=== PATIENT | male | born 1935 | race Caucasian/White ===

== ENCOUNTER 2019-06-04 15:35 | Inpatient (IN) | payer MEDICARE, BC ==
--- NOTE | 2019-06-04 16:15 | ED ---
General Adult HPI - General Chief complaint: Shortness of Breath Stated complaint: Sob-Dr martínez sent him here Time Seen by Provider: 06/04/19 16:00 Source: patient, RN notes reviewed, old records reviewed Mode of arrival: ambulatory Limitations: no limitations - History of Present Illness Initial comments: 83-year-old male presenting for evaluation of cough and dyspnea. Patient was sent in by the lube attendant with increased dyspnea. He states he symptoms have been present for the past several days. He had laboratory testing including a CBC, CMP, d-dimer and BNP performed as well as chest x-ray and echo. His lube attendant Dr. Martínez sent into the emergency department for evaluation of PE as this patient had a significantly elevated d-dimer at 8.0. He has no history DVT or PE. No history of COPD. He had an echo performed as well as an EKG w hich were reported as normal by his lube attendant who I did discuss case with prior to patient arrival. Chest x-ray was performed at this institution, and showed findings suggestive of COPD and emphysema with no focal pneumonia, no pulmonary edema. She denies fever. Denies chest pain. Denies lower extremity pain or swelling. - Related Data Allergies Allergy/AdvReac Type Severity Reaction Status Date / Time No Known Allergies Allergy Verified 06/04/19 15:56 Review of Systems ROS Statement: Those systems with pertinent positive or pertinent negative responses have been documented in the HPI. ROS Other: All systems not noted in ROS Statement are negative. Past Medical History Past Medical History: Diabetes Mellitus History of Any Multi-Drug Resistant Organisms: None Reported Past Surgical History: Appendectomy, Heart Catheterization With Stent Past Psychological History: No Psychological Hx Reported Smoking Status: Never smoker Past Alcohol Use History: None Reported Past Drug Use History: None Reported General Exam Limitations: no limitations General appearance: alert, in no apparent distress Head exam: Present: atraumatic, normocephalic Eye exam: Present: normal appearance, PERRL ENT exam: Present: normal exam Neck exam: Present: normal inspection. Absent: tenderness, meningismus Respiratory exam: Present: normal lung sounds bilaterally. Absent: respiratory distress, wheezes, rales, rhonchi Cardiovascular Exam: Present: regular rate, normal rhythm GI/Abdominal exam: Present: soft. Absent: distended, tenderness, guarding Extremities exam: Present: normal inspection, normal capillary refill. Absent: pedal edema, calf tenderness Neurological exam: Present: alert, oriented X3, CN II-XII intact. Absent: motor sensory deficit Psychiatric exam: Present: normal affect, normal mood Skin exam: Present: warm, dry, intact. Absent: cyanosis, diaphoretic Course Vital Signs 06/04/19 15:50 Temperature 98.3 F Pulse Rate 81 Respiratory 18 Rate Blood Pressure 103/67 O2 Sat by Pulse 98 Oximetry Medical Decision Making - Medical Decision Making 83-year-old male sent from the lube attendant's office for evaluation of pulmonary embolism. Patient had a significantly elevated d-dimer a 8.0. Patient had elevated creatinine at 1.8, perfusion study was obtained and had high probability for pulmonary embolism. Patient was started on high-dose heparin and admitted awaiting repeat lab testing. Case is discussed with the admitting physician Dr. Teran. - Lab Data Result diagrams: 06/04/19 18:30 Lab Results 06/04/19 06/04/19 Range/Units 18:30 18:30 WBC 5.5 (3.8-10.6) k/uL RBC 4.86 (4.30-5.90) m/uL Hgb 15.1 (13.0-17.5) gm/dL Hct 47.0 (39.0-53.0) % MCV 96.7 (80.0-100.0) fL MCH 31.1 (25.0-35.0) pg MCHC 32.2 (31.0-37.0) g/dL RDW 11.9 (11.5-15.5) % Plt Count 185 (150-450) k/uL Neutrophils % 65 % Lymphocytes % 21 % Monocytes % 7 % Eosinophils % 3 % Basophils % 1 % Neutrophils # 3.6 (1.3-7.7) k/uL Lymphocytes # 1.2 (1.0-4.8) k/uL Monocytes # 0.4 (0-1.0) k/uL Eosinophils # 0.2 (0-0.7) k/uL Basophils # 0.0 (0-0.2) k/uL PT 10.2 (9.0-12.0) sec INR 1.0 (<1.2) APTT 22.7 (22.0-30.0) sec Critical Care Time Critical Care Time: Yes Total Critical Care Time: 35 Disposition Clinical Impression: Pulmonary embolism Disposition: ADMITTED IP TO THIS HOSP Condition: Stable Is patient prescribed a controlled substance at d/c from ED?: No Referrals: Hoa Lorenz MD [Primary Care Provider] - 1-2 days Decision to Admit Reason: Admit from EC Decision Date: 06/04/19 Decision Time: 18:15
[2019-06-04] MEDS ORDERED: HEPARIN SODIUM,PORCINE 10,000 UNIT/ML 1 ML VIAL IV ONE (18:16)
[2019-06-04] MEDS ORDERED: HEPARIN SODIUM,PORCINE 5,000 UNIT/ML 1 ML VIAL IV PRN (18:16)
--- NOTE | 2019-06-04 18:18 | NM ---
EXAMINATION TYPE: NM pul vent and perfuse DATE OF EXAM: 06/04/2019 COMPARISON: Chest x-ray dated 06/04/2019 HISTORY: Shortness of breath TECHNIQUE: Utilizing inhalation of 30.4 mCi Tc 99m DTPA aerosol and intravenous injection of 5.2 mCi of Tc 99m MAA, ventilation and perfusion images are acquired post injection in multiple projections. FINDINGS: Decreased radiopharmaceutical uptake is present on ventilation imaging in the upper lobes possibly re lated to underlying emphysema. There are ventilation/perfusion mismatches involving the right upper l obe, right lower lobe, left lower lobe. IMPRESSION: High probability for pulmonary embolism. Report relayed to the physician Dr. Trevizo at time of interpretation
[2019-06-04] MEDS ORDERED: MORPHINE SULFATE 4 MG/ML SYRINGE IV PRN (18:28)
[2019-06-04] MEDS ORDERED: NALOXONE 0.4 MG/ML 1 ML VIAL IV PRN (18:28)
[2019-06-04 18:52] LABS: Basophils % (A) 1 %; Eosinophils # (A) 0.2 k/uL (0-0.7); Eosinophils % (A) 3 %; HGB 15.1 gm/dL (13.0-17.5); Lymphocytes # (A) 1.2 k/uL (1.0-4.8); Lymphocytes % (A) 21 %; MCH 31.1 pg (25.0-35.0); MCHC 32.2 g/dL (31.0-37.0); MCV 96.7 fL (80.0-100.0); Mean Platelet Volume 7.7; Monocytes # (A) 0.4 k/uL (0-1.0); Monocytes % (A) 7 %; Neutrophils # (A) 3.6 k/uL (1.3-7.7); Neutrophils % (A) 65 %; Platelet Count 185 k/uL (150-450); RBC 4.86 m/uL (4.30-5.90); RDW 11.9 % (11.5-15.5); WBC 5.5 k/uL (3.8-10.6)
[2019-06-04 19:07] LABS: Partial Thromboplastin Time 22.7 sec (22.0-30.0); Prothrombin Time 10.2 sec (9.0-12.0)
[2019-06-04] MEDS: HEPARIN SOD,PORK IN 0.45% NACL 25,000 UNIT in 0.45% NACL 1 250ML.BAG IV SCH (19:41)
--- NOTE | 2019-06-04 21:20 | P.HPIM ---
History of Present Illness H&P Date: 06/04/19 The patient is an 83-year-old male with a PMH of diabetes mellitus who was sent in from his readers' advisory service librarian's office for evaluation of shortness of breath and persistent cough. The patient reports that for the last 3 days, he has had gradually worsening dyspnea which has severely limited his activity. He reports that he gets short of breath with climbing 2-3 stairs and even just walking a few steps. He notes that he has previously been in excellent health and has never had similar symptoms in the past. He denied chest pain, diaphoresis, nausea, vomiting, or leg pain. Denied fever, chills, or cough. He was evaluated by Dr. Garcia in the office earlier today was subsequently sent him to the em ergency room. As per the ED augmentation, the patient had undergone an echocardiogram and an EKG in the readers' advisory service librarian's office which were unremarkable as per Dr. Garcia's conversation with the ED physician. the patient's laboratory evaluation revealed a WBC count of 5.5, hemoglobin 15.1, platelets 185, INR 1.0, PTT 22.7. A VQ scan revealed high probability of PE. At time of the interview, the patient reports that his breathing has somewhat improved and he had no dyspnea with walking to the restroom. The patient was started on a heparin infusion and is being admitted for further monitoring. Review of Systems Pertinent positives and negatives as discussed in HPI, a complete review of systems was performed and all other systems are negative. Past Medical History Past Medical History: Diabetes Mellitus History of Any Multi-Drug Resistant Organisms: None Reported Past Surgical History: Appendectomy, Heart Catheterization With Stent Past Psychological History: No Psychological Hx Reported Smoking Status: Never smoker Past Alcohol Use History: None Reported Past Drug Use History: None Reported Medications and Allergies Allergies Allergy/AdvReac Type Severity Reaction Status Date / Time No Known Allergies Allergy Verified 06/04/19 15:56 Physical Exam Vitals: Vital Signs Temp Pulse Resp BP Pulse Ox 06/04/19 15:50 98.3 F 81 18 103/67 98 Intake and Output 06/04/19 06/04/19 06/04/19 06:59 14:59 22:59 Other: Weight 81.647 kg General: non toxic, no distress, appears at stated age, overweight Derm: no unusual rashes/lesions no unusual ecchymoses, warm, dry Head: atraumatic, normocephalic, symmetric Eyes: EOMI, no lid lag, anicteric sclera, pupils equal round reactive to light ENT: Nose and ears atraumatic, no thrush, no pharyngeal erythema Neck: No thyromegaly, no cervical lymphadenopathy, trachea midline, supple Mouth: no lip lesion, mucus membranes moist Cardiovascular: S1S2 reg, no murmur, positive posterior tibial pulse bilateral, no edema, capillary refill less than 2 seconds Lungs: CTA bilateral, no rhonchi, no rales , no accessory muscle use Abdominal: soft, nontender to palpation, no guarding, no appreciable organomegaly, normal bowel sounds Ext: no gross muscle atrophy, muscle strength 5 out of 5 in all 4 extremities grossly, no contractures, no calf tenderness Neuro: CN II-XI grossly intact, light touch intact all 4 extremities, finger to nose within normal limits, Psych: Alert, oriented, appropriate affect Results CBC & Chem 7: 06/04/19 18:30 Assessment and Plan Plan: Dyspnea with likely PE -Started on Heparin infusion -Unable to find echocardiogram in chart -Will need to obtain records in am -Dr Garcia consulted -Cardiac monitoring -Monitor CBC -Obtain repeat EKG Chronic conditions: Type 2 DM -ALFONSO with FS DVT prophylaxis -Heparin infusion The patient is admitted with an anticipated less than 2 midnight stay for evaluation of dyspnea CODE STATUS: No Code Discussed with: Patient Anticipated discharge date: 1-[address]: Home A total of 35 minutes was spent on the care of this complex patient more than 50% of the time was spent in counseling and care coordination.
[2019-06-04] MEDS: SODIUM CHLORIDE 0.9% 1,000 ML IV SCH (22:51)
[2019-06-04 23:48] LABS: Calcium 8.9 mg/dL (8.4-10.2); Potassium 4.3 mmol/L (3.5-5.1)
[2019-06-05 06:29] LABS: Glucose,Whole Blood 132 mg/dL (75-99)
[2019-06-05] MEDS: INSULIN ASPART (NovoLOG) 100 UNIT/ML VIAL SQ SCH ×3 (06:39→17:44)
[2019-06-05 07:22] LABS: Basophils % (A) 0 %; Eosinophils # (A) 0.2 k/uL (0-0.7); Eosinophils % (A) 4 %; HCT 46.7 % (39.0-53.0); HGB 15.3 gm/dL (13.0-17.5); Lymphocytes # (A) 1.3 k/uL (1.0-4.8); Lymphocytes % (A) 21 %; MCH 31.8 pg (25.0-35.0); MCHC 32.8 g/dL (31.0-37.0); Mean Platelet Volume 7.6; Monocytes # (A) 0.4 k/uL (0-1.0); Monocytes % (A) 6 %; Neutrophils # (A) 4.3 k/uL (1.3-7.7); Neutrophils % (A) 68 %; Platelet Count 200 k/uL (150-450); RBC 4.82 m/uL (4.30-5.90); WBC 6.4 k/uL (3.8-10.6)
--- NOTE | 2019-06-05 10:48 | P.PN ---
Subjective Progress Note Date: 06/05/19 This is a pleasant 83-year-old gentleman who follows with Dr. Garcia in the office. He has a known history of coronary artery disease with prior stenting of the right coronary artery, history of paroxysmal supraventricular tachycardia with prior ablation, hypertension, hyperlipidemia, diabetes, went to see Dr. Garcia in the office yesterday because of symptoms of progressively worsening shortness of breath. Patient denies any recent long trips, he denies any injuries to himself recently. No recent surgeries. VQ scan was performed on admission here which showed high probability for pulmonary embolism. Blood pressure this morning 88/70 with a heart rate in the 80s, 99% on 2 L of oxygen. Temperature 98.5. White blood cell count 6.4, hemoglobin 15.3, platelet count 200. Sodium 138, potassium 4.3, BUN 31, creatinine 1.8. Chest x-ray did not reveal any acute cardiopulmonary process. Throughout the night last night, patient went into atrial fibrillation with a fairly rapid ventricular response. He is at present on high-intensity heparin drip. Patient was on metoprolol 50 mg one tablet by mouth twice a day at home which we will resume. Objective - Vital Signs Vital signs: Vital Signs Temp 98.5 F 06/05/19 08:45 Pulse 86 06/05/19 08:45 Resp 18 06/05/19 08:45 BP 87/72 06/05/19 08:45 Pulse Ox 99 06/05/19 08:45 Intake & Output 06/04/19 06/05/19 06/05/19 18:59 06:59 18:59 Intake Total 98.708 Output Total 400 Balance -301.292 Weight 81.647 kg 81.647 kg Intake: Intake, IV Titration 98.708 Amount Heparin Sod,Pork in 0.45% 98.708 NaCl 25,000 unit In 0.45 % NaCl 1 250ml.bag @ 18 UNITS/KG/HR 14.696 mls/hr IV .Q17H1M [facility] Rx#: [id number] Output: Urine 400 - Exam PHYSICAL EXAMINATION: GENERAL: 83-year-old gentleman in no acute distress at the time of my examination HEENT: Head is atraumatic, normocephalic. Pupils equal, round. Sclera anicter ic. Conjunctiva are clear. Mucous membranes of the mouth are moist. Neck is supple. There is no elevated jugular venous pressure. No carotid bruit is heard. HEART EXAMINATION: Heart S1 and S2 irregularly irregular CHEST EXAMINATION: Lungs are clear to auscultation and precussion. No chest wall tenderness is noted on palpation or with deep breathing. ABDOMEN: Soft, nontender. Bowel sounds are heard. No organomegaly noted. EXTREMITIES: 2+ peripheral pulses with no evidence of peripheral edema and no calf tenderness noted. NEUROLOGIC patient is awake, alert and oriented 3 . . - Labs CBC & Chem 7: 06/05/19 06:44 06/04/19 22:56 Labs: Abnormal Lab Results - Last 24 Hours (Table) 06/04/19 06/05/19 06/05/19 Range/Units 22:56 01:06 06:27 APTT 143.7 H* (22.0-30.0) sec Chloride 109 H (98-107) mmol/L Carbon Dioxide 21 L (22-30) mmol/L BUN 31 H (9-20) mg/dL Creatinine 1.81 H (0.66-1.25) mg/dL Glucose 153 H (74-99) mg/dL POC Glucose (mg/dL) 132 H (75-99) mg/dL Assessment and Plan Plan: Assessment and plan #1 symptoms of progressively worsening shortness of breath with evidence of pulmonary embolism on VQ scan, unprovoked #2 new onset atrial fibrillation, paroxysmal #3 known history of coronary artery disease with prior RCA stenting in 2005 #4 hypertension #5 hyperlipidemia #6 diabetes #7 history of paroxysmal supraventricular tachycardia with prior ablation #8 acute on chronic renal insufficiency Plan We will check to see if the patient had an echo performed in the office yesterday prior to admission here, if he did we will not repeat one here. If the patient did not have an echo we will repeat an echo at this time. We will also obtain a TSH level. Resume the patient's beta bárbara 50 mg one tablet by mouth twice a day. Patient is currently on high-intensity heparin for the pulmonary embolism. He'll also need a further evaluation by hematology to determine the cause of this pulmonary embolism. Further recommendations to follow. DNP note has been reviewed, I agree with a documented findings and plan of care. Patient was seen and examined.
[2019-06-05] MEDS: METOPROLOL TARTRATE 50 MG TAB PO SCH ×2 (11:51→20:16)
[2019-06-05] MEDS: HEPARIN SOD,PORK IN 0.45% NACL 25,000 UNIT in 0.45% NACL 1 250ML.BAG IV SCH (12:10)
[2019-06-05] MEDS: SODIUM CHLORIDE 0.9% 1,000 ML IV SCH (12:44)
[2019-06-05 13:45] LABS: Hemoglobin A1C 8.3 % (4.0-6.0)
--- NOTE | 2019-06-05 15:41 | P.PN ---
Subjective Progress Note Date: 06/05/19 Principal diagnosis: follow up for acute PE , and new onset paroxysmal Afib patient was seen and examined , patient doing well on room air, denies any trouble breathing, palpitations, or chest pain Objective - Vital Signs Vital signs: Vital Signs Temp 97.8 F 06/05/19 12:00 Pulse 86 06/05/19 12:00 Resp 20 06/05/19 12:00 BP 121/71 06/05/19 12:00 Pulse Ox 97 06/05/19 12:00 Intake & Output 06/04/19 06/05/19 06/05/19 18:59 06:59 18:59 Intake Total 98.708 100.63 Output Total 400 Balance -301.292 100.63 Weight 81.647 kg 81.647 kg 81.3 kg Intake: Intake, IV Titration 98.708 100.63 Amount Heparin Sod,Pork in 0.45% 98.708 100.63 NaCl 25,000 unit In 0.45 % NaCl 1 250ml.bag @ 18 UNITS/KG/HR 14.696 mls/hr IV .Q17H1M REPLACED [facility] Rx#: [id number] Output: Urine 400 Other: # Voids 0 # Bowel Movements 0 - Exam Constitutional: vital signs stable, Not in acute distress, pleasant, conversant Lungs: Clear to auscultation bilaterally, clear to percussion, normal respiratory effort Cardiovascular: Regular rate and rhythm, no murmurs, no gallops, no rubs, no peripheral edema Gastrointestinal: Soft, no tenderness to palpation, bowel sounds positive Extremities: No digital cyanosis , peripheral pulses palpable and equal , no calf muscle tenderness Psych: Alert, oriented to place, person and time, appropriate affect, intact judgment - Labs CBC & Chem 7: 06/05/19 06:44 06/04/19 22:56 Labs: Abnormal Lab Results - Last 24 Hours (Table) 06/04/19 06/05/19 06/05/19 Range/Units 22:56 01:06 06:27 APTT 143.7 H* (22.0-30.0) sec Chloride 109 H (98-107) mmol/L Carbon Dioxide 21 L (22-30) mmol/L BUN 31 H (9-20) mg/dL Creatinine 1.81 H (0.66-1.25) mg/dL Glucose 153 H (74-99) mg/dL POC Glucose (mg/dL) 132 H (75-99) mg/dL Hemoglobin A1c (4.0-6.0) % 06/05/19 06/05/19 Range/Units 06:49 10:57 APTT 92.6 H (22.0-30.0) sec Chloride (98-107) mmol/L Carbon Dioxide (22-30) mmol/L BUN (9-20) mg/dL Creatinine (0.66-1.25) mg/dL Glucose (74-99) mg/dL POC Glucose (mg/dL) (75-99) mg/dL Hemoglobin A1c 8.3 H (4.0-6.0) % Assessment and Plan Assessment: 83-year-old male with poorly controlled diabetes mellitus, hypertension, history of CAD. Comes in due to referral from college or university business manager office when he showed up for acute shortness of breath and palpitations. In the ED he had some testing done includes VQ scan revealed high probability PE for which she is admitted for treatment of acute PE and new onset paroxysmal A. fib. Patient was started on heparin drip and currently undergoing full workup for underlying causes of PE. It seems like his PE is unprovoked. Plan: Acute unprovoked PE Cardiovascularly compensated at this time Currently on room air Continue with heparin drip We'll transition into one of the oral anticoagulation upon discharge. Diabetes mellitus uncontrolled A1c is 8.3 Insulin sliding scale while inpatient New onset paroxysmal A. fib, chads Basque score more than 2 will require anticoagulation for stroke prophylaxis will await for further recommendations from cardiology Follow-up echocardiogram to rule out any structural cardiac disease and valvular disorder Chronic conditions Hypertension, controlled Hyperlipidemia History of CAD Continue home meds We'll follow up on echocardiogram of the heart Venous duplex ultrasound of the lower extremities Contact Yane patient daughter at [phone] upon discharge Anticipated discharge tomorrow 06/06/19, to home for acute PE , Switch the patient to Eliquis 10 mg twice a day for 7 days then transitioned into 5 mg twice a day to continue a course of 6 months, follow-up with hematology prior to stopping Eliquis
--- NOTE | 2019-06-05 16:19 | US ---
EXAMINATION TYPE: US venous doppler duplex LE DATE OF EXAM: 06/05/2019 1:38 PM COMPARISON: NONE CLINICAL HISTORY: Bilateral PE. Low blood pressure SIDE PERFORMED: Bilateral TECHNIQUE: The lower extremity deep venous system is examined utilizing real time linear array sonog candice with graded compression, doppler sonography and color-flow sonography. VESSELS IMAGED: External Iliac Vein (EIV) Common Femoral Vein Deep Femoral Vein Greater Saphenous Vein * Femoral Vein Popliteal Vein Small Saphenous Vein * Proximal Calf Veins (* superficial vessels) Grayscale, color doppler, spectral doppler imaging performed of the deep veins of the lower extremiti es. There is normal flow, compressibility, vascular waveforms. Right Leg: Negative for DVT Left Leg: Negative for DVT IMPRESSION: No sonographic evidence of deep venous thrombosis in the visualized portions of the bila teral lower extremities.
[2019-06-05 17:11] LABS: Glucose,Whole Blood 185 mg/dL (75-99)
--- NOTE | 2019-06-05 17:12 | P.CONS ---
History of Present Illness - Reason for Consult Consult date: 06/05/19 Bilateral PE Requesting physician: Josephine Hall - Chief Complaint cough and SOB - History of Present Illness Mr. Beavers is a very pleasant 83 year old male with rather benign PHM other then Tx for HTN and DM (oral meds only). Pt sent to hospital at his Sporting Goods Salesperson request as pt had c/o SOB and cough x 3 days, persistent, D-dimer was elevated, VQ showed mismatch ventilation/perfusion in multiple lobes, pt SOB and cough are stable, he denied recent illnesses, chest pain, recent trips, prolonged immobilization, hormonal treatments, injury, no personal or family history of blood clots, he denies any diagnosis of cancer. Review of Systems 14 point ROS is negative except as stated in HPI Past Medical History Past Medical History: Diabetes Mellitus History of Any Multi-Drug Resistant Organisms: None Reported Past Surgical History: Appendectomy Past Anesthesia/Blood Transfusion Reactions: No Reported Reaction Past Psychological History: No Psychological Hx Reported Smoking Status: Never smoker Past Alcohol Use History: None Reported Past Drug Use History: None Reported - Past Family History Father History Unknown: Yes Medications and Allergies Home Medications Medication Instructions Recorded Confirmed Type glipiZIDE [Glucotrol] 5 mg PO AC-BID 06/04/19 06/05/19 History Apixaban [Eliquis Starter Pack 5 mg PO DIRECTED 30 Days #1 pack 06/05/19 Rx (for VTE)] Aspirin EC [Ecotrin Low Dose] 81 mg PO DAILY 06/05/19 06/05/19 History Metoprolol Tartrate [Lopressor] 50 mg PO BID 06/05/19 06/05/19 History Simvastatin [Zocor] 20 mg PO HS 06/05/19 06/05/19 History amLODIPine [Norvasc] 5 mg PO DAILY 06/05/19 06/05/19 History metFORMIN HCL [Glucophage] 500 mg PO BID 06/05/19 06/05/19 History Allergies Allergy/AdvReac Type Severity Reaction Status Date / Time No Known Allergies Allergy Verified 06/04/19 21:38 Physical Exam Vitals: Vital Signs Temp Pulse Pulse Resp BP BP Pulse Ox 06/05/19 08:45 98.5 F 86 16 87/72 99 06/05/19 04:00 98.4 F 98 18 103/72 96 06/05/19 00:00 98.1 F 93 18 108/80 96 06/04/19 20:00 98.5 F 76 18 139/86 98 06/04/19 15:50 98.3 F 81 18 103/67 98 Intake and Output 06/04/19 06/05/19 06/05/19 22:59 06:59 14:59 Intake Total 98.708 100.63 Output Total 400 Balance -301.292 100.63 Intake: Intake, IV Titration 98.708 100.63 Amount Heparin Sod,Pork in 0.45% 98.708 100.63 NaCl 25,000 unit In 0.45 % NaCl 1 250ml.bag @ 18 UNITS/KG/HR 14.696 mls/hr IV .Q17H1M [facility] Rx#: [id number] Output: Urine 400 Other: # Voids 0 # Bowel Movements 0 Weight 81.647 kg 81.3 kg - Constitutional General appearance: average body habitus, cooperative, no acute distress - EENT Eyes: anicteric sclerae, EOMI ENT: hearing grossly normal, normal oropharynx - Neck Neck: no lymphadenopathy - Respiratory Respiratory: bilateral: CTA - Cardiovascular Rhythm: regular Heart sounds: normal: S1, S2 Abnormal Heart Sounds: no systolic murmur, no diastolic murmur, no rub, no S3 Gallop, no S4 Gallop, no click, no other leg Peripheral Edema: bilateral: Trace - Gastrointestinal General gastrointestinal: no absent bowel sounds, no decreased bowel sounds, no distended, no hepatomegaly, no hyperactive bowel sounds, normal bowel sounds, no organomegaly, no rigid, no scaphoid, soft, no splenomegaly, no tenderness, no umbilical hernia, no ventral hernia - Integumentary Integumentary: normal - Neurologic Neurologic: CNII-XII intact - Musculoskeletal Musculoskeletal: strength equal bilaterally - Psychiatric Psychiatric: A&O x's 3, appropriate affect, intact judgment & insight Results CBC & Chem 7: 06/05/19 06:44 06/04/19 22:56 Labs: Abnormal Lab Results - Last 24 Hours (Table) 06/04/19 06/05/19 06/05/19 Range/Units 22:56 01:06 06:27 APTT 143.7 H* (22.0-30.0) sec Chloride 109 H (98-107) mmol/L Carbon Dioxide 21 L (22-30) mmol/L BUN 31 H (9-20) mg/dL Creatinine 1.81 H (0.66-1.25) mg/dL Glucose 153 H (74-99) mg/dL POC Glucose (mg/dL) 132 H (75-99) mg/dL Hemoglobin A1c (4.0-6.0) % 06/05/19 06/05/19 Range/Units 06:49 10:57 APTT 92.6 H (22.0-30.0) sec Chloride (98-107) mmol/L Carbon Dioxide (22-30) mmol/L BUN (9-20) mg/dL Creatinine (0.66-1.25) mg/dL Glucose (74-99) mg/dL POC Glucose (mg/dL) (75-99) mg/dL Hemoglobin A1c 8.3 H (4.0-6.0) % Comments: VQ scan report reviewed Assessment and Plan (1) Pulmonary embolism Narrative/Plan: RUL, RLL and LLL PE, unprovoked. Recommendation is for lifelong anticoagulation, if tolerated well. CTA 6mo-1 year for re-evaluation. Pt has children, hypercoaguable work up will be done outpatient Doppler of BLE for baseline prior to starting anticoagulation for PE Jeanette Escobedo sent for copay verification, CM following up. All of the above was discussed with the pt. Symptomatic PE, anticipate heparin drip until at least tomorrow when pt symptoms re-evaluated Current Visit: Yes Status: Acute Priority: High Code(s): I26.99 - OTHER PULMONARY EMBOLISM WITHOUT ACUTE COR PULMONALE SNOMED Code(s): 65525310
[2019-06-05] MEDS: APIXABAN 5 MG TAB PO SCH (17:44)
[2019-06-05 20:15] VITALS: RESP 16
[2019-06-05 20:53] LABS: Glucose,Whole Blood 101 mg/dL (75-99)
[2019-06-06 06:06] LABS: Glucose,Whole Blood 120 mg/dL (75-99)
[2019-06-06] MEDS: INSULIN ASPART (NovoLOG) 100 UNIT/ML VIAL SQ SCH ×2 (06:11→12:29)
[2019-06-06 06:44] LABS: Basophils % (A) 0 %; Eosinophils # (A) 0.2 k/uL (0-0.7); Eosinophils % (A) 4 %; HCT 43.8 % (39.0-53.0); HGB 14.3 gm/dL (13.0-17.5); Lymphocytes # (A) 1.1 k/uL (1.0-4.8); Lymphocytes % (A) 20 %; MCH 31.5 pg (25.0-35.0); MCHC 32.6 g/dL (31.0-37.0); MCV 96.8 fL (80.0-100.0); Mean Platelet Volume 7.4; Monocytes # (A) 0.3 k/uL (0-1.0); Monocytes % (A) 6 %; Neutrophils # (A) 3.8 k/uL (1.3-7.7); Neutrophils % (A) 68 %; Platelet Count 188 k/uL (150-450); RBC 4.53 m/uL (4.30-5.90); WBC 5.6 k/uL (3.8-10.6)
[2019-06-06 06:53] LABS: Calcium 8.9 mg/dL (8.4-10.2); Potassium 5.4 mmol/L (3.5-5.1)
[2019-06-06] MEDS ORDERED: ASPIRIN 81 MG PO SCH (09:00)
[2019-06-06] MEDS: APIXABAN 5 MG TAB PO SCH (09:03)
[2019-06-06] MEDS: METOPROLOL TARTRATE 50 MG TAB PO SCH (09:03)
[2019-06-06 09:05] VITALS: TEMP 98.3
--- NOTE | 2019-06-06 11:08 | P.DS ---
Providers Date of admission: 06/04/19 19:15 Attending physician: Jeronimo Edgar MD Consults: 06/04/19 18:28 Consult Physician Routine Consulting Provider: Ramon Garcia Consult Reason/Comments: Pe Do you want consulting provider notified?: Yes 06/04/19 21:27 Consult Physician Routine Consulting Provider: Robin Howard Consult Reason/Comments: Unprovoked PE Do you want consulting provider notified?: Yes Primary care physician: Hoa Lorenz Hospital Course: Final diagnoses at discharge Acute unprovoked pulmonary embolism Paroxysmal A. fib CKD III diabetes mellitus with A1C 8.3% hospital course 83-year-old male with poorly controlled diabetes mellitus, hypertension, history of CAD. 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 In the ED he had some testing done includes VQ scan revealed high probability PE for which she is admitted for treatment of acute PE and new onset paroxysmal A. fib. Patient was started on heparin drip and currently undergoing full workup for underlying causes of PE. It seems like his PE is unprovoked. venous duplex ultrasound of the lower extremity showed no acute DVT. Patient seen and examined on day of discharge she participated with physical therapy walked around independently. Denies any chest pain or trouble breathing currently on room air. Constitutional: vital signs stable, Not in acute distress, pleasant, conversant Lungs: Clear to auscultation bilaterally, clear to percussion, normal respiratory effort Cardiovascular: Regular rate and rhythm, no murmurs, no gallops, no rubs, no peripheral edema Gastrointestinal: Soft, no tenderness to palpation, bowel sounds positive Extremities: No digital cyanosis , peripheral pulses palpable and equal , no calf muscle tenderness Psych: Alert, oriented to place, person and time, appropriate affect, intact judgment Follow-up with cardiology and hematology upon discharge Follow-up with PCP Condition to continue Eliquis lifelong patient will be discharged today after cardiology sees and clears the patient i called patient daughter Yane and updated her on the patient current diagnosis and plan of care More than 35 minutes were spent discharging this patient, and more than 50% of the time was spent in counseling the patient and family and in coordinating care. Procedures: venous duplex ultrasound of the lower extremities VQ scan Patient Condition at Discharge: Stable Plan - Discharge Summary New Discharge Prescriptions: New Apixaban [Eliquis Starter Pack (for VTE)] 5 mg PO DIRECTED 30 Days #1 pack Continue glipiZIDE [Glucotrol] 5 mg PO AC-BID metFORMIN HCL [Glucophage] 500 mg PO BID Simvastatin [Zocor] 20 mg PO HS Metoprolol Tartrate [Lopressor] 50 mg PO BID Aspirin EC [Ecotrin Low Dose] 81 mg PO DAILY amLODIPine [Norvasc] 5 mg PO DAILY Discharge Medication List glipiZIDE [Glucotrol] 5 mg PO AC-BID 06/04/19 [History] Apixaban [Eliquis Starter Pack (for VTE)] 5 mg PO DIRECTED 30 Days #1 pack 06/05/19 [Rx] Aspirin EC [Ecotrin Low Dose] 81 mg PO DAILY 06/05/19 [History] Metoprolol Tartrate [Lopressor] 50 mg PO BID 06/05/19 [History] Simvastatin [Zocor] 20 mg PO HS 06/05/19 [History] amLODIPine [Norvasc] 5 mg PO DAILY 06/05/19 [History] metFORMIN HCL [Glucophage] 500 mg PO BID 06/05/19 [History] Follow up Appointment(s)/Referral(s): Robni Howard MD [STAFF PHYSICIAN] - 1 Week Hoa Lorenz MD [Primary Care Provider] - 06/08/19 11:00 am (Tuesday) Ramon Garcia MD [STAFF PHYSICIAN] - 06/13/19 3:00 pm (Tuesday) Patient Instructions/Handouts: Pulmonary Embolism (DC), Safe Use of Anticoagulants (DC) Discharge Disposition: HOME SELF-CARE
[2019-06-06 11:32] LABS: Glucose,Whole Blood 223 mg/dL (75-99)
--- NOTE | 2019-06-06 12:04 | P.PN ---
Subjective Progress Note Date: 06/06/19 Principal diagnosis: unprovoked PE In f/u today pt is doing well, cough is less, mild GILL, denies chest pain and bleeding. Objective - Vital Signs Vital signs: Vital Signs Temp 98.3 F 06/06/19 08:00 Pulse 71 06/06/19 08:00 Resp 16 06/06/19 11:55 BP 117/61 06/06/19 08:00 Pulse Ox 92 L 06/06/19 08:00 Intake & Output 06/05/19 06/06/19 06/06/19 18:59 06:59 18:59 Intake Total 400.63 Output Total 480 280 Balance 400.63 -480 -280 Weight 81.3 kg 81.2 kg Intake: Intake, IV Titration 100.63 Amount Heparin Sod,Pork in 0.45% 100.63 NaCl 25,000 unit In 0.45 % NaCl 1 250ml.bag @ 18 UNITS/KG/HR 14.696 mls/hr IV .Q17H1M [facility] Rx#: [id number] Oral 300 Output: Urine 480 280 Other: # Voids 1 1 # Bowel Movements 0 0 - Constitutional General appearance: Present: average body habitus, cooperative, no acute distress - EENT Eyes: Present: anicteric sclerae, EOMI ENT: Present: hearing grossly normal - Respiratory Respiratory: bilateral: CTA - Cardiovascular Details: radial pulse regular, 2+ - Integumentary Integumentary: Present: normal - Neurologic Neurologic: Present: CNII-XII intact - Musculoskeletal Musculoskeletal: Present: strength equal bilaterally - Psychiatric Psychiatric: Present: A&O x's 3, appropriate affect, intact judgment & insight - Labs CBC & Chem 7: 06/06/19 05:52 06/06/19 05:52 Labs: Abnormal Lab Results - Last 24 Hours (Table) 06/05/19 06/05/19 06/05/19 Range/Units 06:49 17:00 20:51 Potassium (3.5-5.1) mmol/L Chloride (98-107) mmol/L BUN (9-20) mg/dL Creatinine (0.66-1.25) mg/dL Glucose (74-99) mg/dL POC Glucose (mg/dL) 185 H 101 H (75-99) mg/dL Hemoglobin A1c 8.3 H (4.0-6.0) % 06/06/19 06/06/19 06/06/19 Range/Units 05:52 06:04 11:24 Potassium 5.4 H (3.5-5.1) mmol/L Chloride 108 H (98-107) mmol/L BUN 31 H (9-20) mg/dL Creatinine 1.79 H (0.66-1.25) mg/dL Glucose 106 H (74-99) mg/dL POC Glucose (mg/dL) 120 H 223 H (75-99) mg/dL Hemoglobin A1c (4.0-6.0) % - Imaging and Cardiology Venous US: report reviewed Assessment and Plan (1) Pulmonary embolism Narrative/Plan: RUL, RLL and LLL PE, unprovoked. Recommendation is for lifelong anticoagulation, if tolerated well. CTA 6mo-1 year for re-evaluation. Pt has children, hypercoaguable work up will be done outpatient-pt will be contacted with appt Doppler of BLE for baseline was negative Eliqus Erx sent for copay verification, CM following up. We will follow with pt to ensure he has anticoagulant Reviewed bleeding precautions, when to seek emergent medical care All of the above was discussed with the pt. Current Visit: Yes Status: Acute Priority: High Code(s): I26.99 - OTHER PULMONARY EMBOLISM WITHOUT ACUTE COR PULMONALE SNOMED Code(s): 72272766
[2019-06-06 12:31] VITALS: BP 112/58; PULSE 51
--- NOTE | 2019-06-06 13:35 | P.PN ---
Subjective Progress Note Date: 06/06/19 This is a pleasant 83-year-old gentleman who follows with Dr. Garcia in the office. He has a known history of coronary artery disease with prior stenting of the right coronary artery, history of paroxysmal supraventricular tachycardia with prior ablation, hypertension, hyperlipidemia, diabetes, went to see Dr. Garcia in the office yesterday because of symptoms of progressively worsening shortness of breath. Patient denies any recent long trips, he denies any injuries to himself recently. No recent surgeries. VQ scan was performed on admission here which showed high probability for pulmonary embolism. Blood pressure this morning 88/70 with a heart rate in the 80s, 99% on 2 L of oxygen. Temperature 98.5. White blood cell count 6.4, hemoglobin 15.3, platelet count 200. Sodium 138, potassium 4.3, BUN 31, creatinine 1.8. Chest x-ray did not reveal any acute cardiopulmonary process. Throughout the night last night, patient went into atrial fibrillation with a fairly rapid ventricular response. He is at present on high-intensity heparin drip. Patient was on metoprolol 50 mg one tablet by mouth twice a day at home which we will resume. 06/06/2019 Patient was seen and examined this morning, doing well, breathing is stable. Denies any further episodes of shortness of breath. He's been ambulating without any difficulty. He is on anticoagulation per PE protocol. Venous d uplex study was negative for DVT. Patient is being discharged home today, he will follow-up with hematology for a full evaluation post discharge. We will also make him a follow-up appointment in the office to see Dr. Kate. Objective - Vital Signs Vital signs: Vital Signs Temp 98.3 F 06/06/19 08:00 Pulse 51 L 06/06/19 12:00 Resp 16 06/06/19 12:00 BP 112/58 06/06/19 12:00 Pulse Ox 96 06/06/19 12:00 Intake & Output 06/05/19 06/06/19 06/06/19 18:59 06:59 18:59 Intake Total 400.63 300 Output Total 480 280 Balance 400.63 -480 20 Weight 81.3 kg 81.2 kg Intake: Intake, IV Titration 100.63 300 Amount Heparin Sod,Pork in 0.45% 100.63 NaCl 25,000 unit In 0.45 % NaCl 1 250ml.bag @ 18 UNITS/KG/HR 14.696 mls/hr IV .Q17H1M [facility] Rx#: [id number] Sodium Chloride 0.9% 1, 300 000 ml @ 50 mls/hr IV . Q20H [facility] Rx#:[id number] Oral 300 Output: Urine 480 280 Other: # Voids 1 1 # Bowel Movements 0 0 - Exam PHYSICAL EXAMINATION: GENERAL: 83-year-old gentleman in no acute distress at the time of my examination HEENT: Head is atraumatic, normocephalic. Pupils equal, round. Sclera anicteric. Conjunctiva are clear. Mucous membranes of the mouth are moist. Neck is supple. There is no elevated jugular venous pressure. No carotid brui t is heard. HEART EXAMINATION: Heart S1 and S2 irregularly irregular CHEST EXAMINATION: Lungs are clear to auscultation and precussion. No chest wall tenderness is noted on palpation or with deep breathing. ABDOMEN: Soft, nontender. Bowel sounds are heard. No organomegaly noted. EXTREMITIES: 2+ peripheral pulses with no evidence of peripheral edema and no calf tenderness noted. NEUROLOGIC patient is awake, alert and oriented 3 . . - Labs CBC & Chem 7: 06/06/19 05:52 06/06/19 05:52 Labs: Abnormal Lab Results - Last 24 Hours (Table) 06/05/19 06/05/19 06/05/19 Range/Units 06:49 17:00 20:51 Potassium (3.5-5.1) mmol/L Chloride (98-107) mmol/L BUN (9-20) mg/dL Creatinine (0.66-1.25) mg/dL Glucose (74-99) mg/dL POC Glucose (mg/dL) 185 H 101 H (75-99) mg/dL Hemoglobin A1c 8.3 H (4.0-6.0) % 06/06/19 06/06/19 06/06/19 Range/Units 05:52 06:04 11:24 Potassium 5.4 H (3.5-5.1) mmol/L Chloride 108 H (98-107) mmol/L BUN 31 H (9-20) mg/dL Creatinine 1.79 H (0.66-1.25) mg/dL Glucose 106 H (74-99) mg/dL POC Glucose (mg/dL) 120 H 223 H (75-99) mg/dL Hemoglobin A1c (4.0-6.0) % Assessment and Plan Plan: Assessment and plan #1 symptoms of progressively worsening shortness of breath with evidence of pulmonary embolism on VQ scan, unprovoked #2 new onset atrial fibrillation, paroxysmal #3 known history of coronary artery disease with prior RCA stenting in 2005 #4 hypertension #5 hyperlipidemia #6 diabetes #7 history of paroxysmal supraventricular tachycardia with prior ablation #8 acute on chronic renal insufficiency Plan Patient will be discharged home today. We'll make him a follow-up appointment to see Dr. Kate in the office post discharge. He will also follow-up with hematology. DNP note has been reviewed, I agree with a documented findings and plan of care. Patient was seen and examined.
== END 2019-06-06 13:18 | disposition home or self-care (01) | DRG 176 ==
LOC: EC 15:35 → 3SCARD 19:15
PROVIDERS: ADMIT Internal Medicine; ATTEND Internal Medicine
DX: I26.99 Other pulmonary embolism without acute cor pulmonale (principal); E11.22 Type 2 diabetes mellitus with diabetic chronic kidney disease; E78.5 Hyperlipidemia, unspecified; I12.9 Hypertensive chronic kidney disease with stage 1 through stage 4 chronic kidney disease, or unspecified chronic kidney disease; I25.10 Atherosclerotic heart disease of native coronary artery without angina pectoris; Z66 Do not resuscitate; N18.3 Chronic kidney disease, stage 3 (moderate); I48.0 Paroxysmal atrial fibrillation; Z79.01 Long term (current) use of anticoagulants; Z79.82 Long term (current) use of aspirin; Z79.84 Long term (current) use of oral hypoglycemic drugs; Z79.899 Other long term (current) drug therapy; Z95.5 Presence of coronary angioplasty implant and graft; Z90.49 Acquired absence of other specified parts of digestive tract
CPT/HCPCS: 36415; 71046; 78582; 80048; 80051; 82565; 83036; 83880; 84443; 84520; 85025; 85027; 85379; 85610; 85730; 93005; 93970; 96365; 96366; 96376; 99291

== ENCOUNTER → 2019-06-04 | Outpatient (CLI) | payer MEDICARE, BC ==
[2019-06-04 11:09] LABS: HCT 47.6 % (39.0-53.0); HGB 15.8 gm/dL (13.0-17.5); MCH 32.4 pg (25.0-35.0); MCHC 33.2 g/dL (31.0-37.0); MCV 97.5 fL (80.0-100.0); Mean Platelet Volume 7.3; Platelet Count 188 k/uL (150-450); RBC 4.88 m/uL (4.30-5.90); RDW 12.1 % (11.5-15.5); WBC 6.2 k/uL (3.8-10.6)
--- NOTE | 2019-06-04 13:20 | XR ---
EXAMINATION TYPE: XR chest 2V DATE OF EXAM: 06/04/2019 COMPARISON: NONE HISTORY: Shortness of breath TECHNIQUE: Frontal and lateral views of the chest are obtained. FINDINGS: There are prominent lung volumes with flattening the hemidiaphragms consistent with underly ing COPD. Aorta is dense. Thoracic spondylosis is present. Interstitial changes are present at the eduardo ng bases, there may be additionally scarring. There is no focal air space opacity, pleural effusion, or pneumothorax seen. The cardiac silhouette size is within normal limits. The osseous structures are intact. IMPRESSION: No acute cardiopulmonary process. Interstitial lung disease and COPD, question underlyin g emphysema.
[2019-06-04 23:08] LABS: Glucose,Whole Blood 165 mg/dL (75-99)
[2019-06-05 11:52] LABS: Glucose,Whole Blood 136 mg/dL (75-99)
== END | disposition home or self-care (01) ==
LOC: RADXRMAIN 09:51
PROVIDERS: ATTEND Internal Medicine Cardiovascular Disease
DX: J84.9 Interstitial pulmonary disease, unspecified (principal); J43.9 Emphysema, unspecified; R06.02 Shortness of breath
CPT/HCPCS: 71046; 80051; 82565; 83880; 84520; 85027; 85379

== ENCOUNTER → 2019-10-09 | Outpatient (CLI) | payer MEDICARE, BC | END | disposition home or self-care (01) | LOC: LABWHC1 13:18 | PROVIDERS: ATTEND Internal Medicine Gastroenterology | DX: Z11.59 Encounter for screening for other viral diseases (principal) ==

== ENCOUNTER 2019-10-12 07:01 | Day surgery (SDC) | payer MEDICARE, BC ==
[2019-10-08 15:43] VITALS: BMI 25.8
[~2019-10-12 07:01] MED LIST: LACTATED RINGERS 1,000 ML IV SCH
[2019-10-12 07:20] VITALS: TEMP 97.8
[2019-10-12] MEDS ORDERED: LACTATED RINGERS 1,000 ML IV ONE (07:20)
[2019-10-12] MEDS ORDERED: LIDOCAINE 1% (10MG/ML) FOR IV START INTRADERMA ONE (07:20)
[2019-10-12 07:32] LABS: Glucose,Whole Blood 116 mg/dL (75-99)
[2019-10-12] MEDS ORDERED: PROPOFOL 10 MG/ML 20 ML VIAL IV ONE (07:40)
--- NOTE | 2019-10-12 07:58 | P.PCN ---
Date of Procedure: 10/12/19 Procedure(s) Performed: BRIEF HISTORY: Patient is a 84-year-old pleasant [] scheduled for an elective colonoscopy as a part of screening for colorectal neoplasia. He was diagnosed with DVT/pulmonary embolism in May of this year and remains on a Eliquis which he stopped 2 days ago. His last colonoscopy was more than 10 years ago PROCEDURE PERFORMED: Colonoscopy. PREOPERATIVE DIAGNOSIS: Screening for colon cancer. IV sedation per Anesthesia. PROCEDURE: After informed consent was obtained, the patient, was brought into the endoscopy unit. IV sedation was administered by Anesthesia under continuous monitoring. Digital rectal examination was normal. Initially the Olympus CF-160 flexible video colonoscope was then inserted in the rectum, gradually advanced into the cecum without any difficulty. Careful examination was performed as the scope was gradually being withdrawn. Ileocecal valve and the appendiceal orifice were visualized and appeared normal. Prep was excellent. Mucosa of the cecum, ascending colon, transverse colon, descending colon, sigmoid colon, and rectum appeared normal. Scattered sigmoid diverticulosis seen. Retroflexion was performed in the rectum and small internal hemorrhoids were seen. The patient tolerated the procedure well. IMPRESSION: Normal-appearing colon from rectum to cecum with no evidence of colorectal neoplasia. Scattered sigmoidal diverticulosis Small internal hemorrhoids RECOMMENDATIONS: Findings of this examination were discussed with the patient as well as his family. He was advised to be a high-fiber diet. We will resume Eliquis today.
[2019-10-12 08:14] VITALS: RESP 16
[2019-10-12 08:29] VITALS: BP 134/80; PULSE 51
== END 2019-10-12 08:50 | disposition home or self-care (01) ==
LOC: ORWHC2ENDO 07:01
PROVIDERS: ATTEND Internal Medicine Gastroenterology
DX: Z12.11 Encounter for screening for malignant neoplasm of colon (principal); K57.30 Diverticulosis of large intestine without perforation or abscess without bleeding; K64.8 Other hemorrhoids; I10 Essential (primary) hypertension; I25.10 Atherosclerotic heart disease of native coronary artery without angina pectoris; I25.2 Old myocardial infarction; I48.91 Unspecified atrial fibrillation; E78.5 Hyperlipidemia, unspecified; E11.9 Type 2 diabetes mellitus without complications; Z79.01 Long term (current) use of anticoagulants; Z79.84 Long term (current) use of oral hypoglycemic drugs; Z79.899 Other long term (current) drug therapy; Z86.711 Personal history of pulmonary embolism; Z86.718 Personal history of other venous thrombosis and embolism
CPT/HCPCS: J2704; G0121

== ENCOUNTER → 2019-12-19 | Outpatient (CLI) | payer MEDICARE, BC ==
--- NOTE | 2019-12-19 14:21 | XR ---
EXAMINATION TYPE: XR chest 2V DATE OF EXAM: 12/19/2019 CLINICAL HISTORY: Essential hypertension, shortness of breath, pulmonary embolism, diabetes TECHNIQUE: Frontal and lateral views of the chest are obtained. COMPARISON: Chest radiograph 06/04/2019 FINDINGS: The lungs are hyperinflated with flattening of the hemidiaphragms consistent with emphysem atous change coarsened interstitial lung markings at the lung bases. There is bronchiectasis. The car diomediastinal silhouette is within normal limits for size. Pulmonary vasculature is normal. There is no focal air space opacity, pleural effusion, or pneumothorax seen. Degenerative changes of the spin e. IMPRESSION: 1. No acute cardiopulmonary process. 2. Emphysematous changes.
== END | disposition home or self-care (01) ==
LOC: RADXRMAIN 10:23
PROVIDERS: ATTEND Internal Medicine Hematology & Oncology
DX: J43.9 Emphysema, unspecified (principal); I26.99 Other pulmonary embolism without acute cor pulmonale; E11.9 Type 2 diabetes mellitus without complications; I10 Essential (primary) hypertension
CPT/HCPCS: 71046

== ENCOUNTER → 2019-12-20 | Outpatient (CLI) | payer MEDICARE, BC ==
--- NOTE | 2019-12-20 18:22 | NM ---
EXAMINATION TYPE: NM pulmonary ventilation and perfusion DATE OF EXAM: 12/20/2019 COMPARISON: Chest radiograph 12/19/2019 HISTORY: Shortness of breath TECHNIQUE: Utilizing inhalation of 68.9 mCi Tc 99m DTPA aerosol and intravenous injection of 4.19 mC i of Tc 99m MAA, ventilation and perfusion images are acquired post injection in multiple projections . FINDINGS: Same-day comparison chest radiograph demonstrates emphysematous changes. Somewhat patchy distribution of radiotracer on ventilation imaging. There are small matched defects o n perfusion and ventilation. There are mismatched defects on perfusion in the region of the bilateral sterling, right greater than left. IMPRESSION: Low or intermediate probability of pulmonary embolism.
== END | disposition home or self-care (01) ==
LOC: RADNMMAIN 12:58
PROVIDERS: ATTEND Internal Medicine Hematology & Oncology
DX: R06.02 Shortness of breath (principal)
CPT/HCPCS: 78582; A9540; A9567

== ENCOUNTER 2021-05-19 12:25 | Inpatient (IN) | payer MEDICARE, BC ==
[2021-05-19] MEDS ORDERED: SODIUM CHLORIDE 0.9% 1,000 ML IV STA (12:46)
[2021-05-19] MEDS ORDERED: DILTIAZEM DRIP BOLUS FROM BAG 1 MG SOLN IV ONE (12:47)
[2021-05-19] MEDS ORDERED: DILTIAZEM 125 MG in SODIUM CHLORIDE 0.9% 100 ML IV SCH (13:00)
--- NOTE | 2021-05-19 13:07 | ED ---
General Adult HPI - General Chief complaint: Shortness of Breath Stated complaint: SOB Time Seen by Provider: 05/19/21 12:30 Source: patient, RN notes reviewed, old records reviewed Mode of arrival: wheelchair Limitations: no limitations - History of Present Illness Initial comments: This is an 85-year-old male who presents emergency department stating that he's been short of breath for the last couple of days. Patient states it's particularly worse if he exerts himself. Patient states as long he's lying still or sitting still he does not have any symptoms. Patient denies any chest pain at any time. Patient states a couple days ago he was having some neck pain when he lay down flat. Patient states currently does not have the. Patient denies headache patient denies any numbness weakness per patient denies lightheadedness or dizziness. Patient denies any abdominal pain. Patient denies nausea vomiting diarrhea per patient denies any recent fever chills or cough. - Related Data Home Medications Medication Instructions Recorded Confirmed glipiZIDE [Glucotrol] 5 mg PO DAILY 06/04/19 05/19/21 Metoprolol Tartrate [Lopressor] 50 mg PO BID 06/05/19 05/19/21 Simvastatin [Zocor] 20 mg PO HS 06/05/19 05/19/21 amLODIPine [Norvasc] 5 mg PO DAILY 06/05/19 05/19/21 Acetaminophen Tab [Tylenol] 325 - 650 mg PO Q6H PRN 10/08/19 05/19/21 Apixaban [Eliquis] 5 mg PO BID 05/19/21 05/19/21 Allergies Allergy/AdvReac Type Severity Reaction Status Date / Time No Known Allergies Allergy Verified 05/19/21 14:51 Review of Systems ROS Statement: Those systems with pertinent positive or pertinent negative responses have been documented in the HPI. ROS Other: All systems not noted in ROS Statement are negative. Past Medical History Past Medical History: Diabetes Mellitus History of Any Multi-Drug Resistant Organisms: None Reported Past Surgical History: Appendectomy Past Anesthesia/Blood Transfusion Reactions: No Reported Reaction Past Psychological History: No Psychological Hx Reported Smoking Status: Never smoker Past Alcohol Use History: None Reported Past Drug Use History: None Reported - Past Family History Father History Unknown: Yes General Exam - General Exam Comments Initial Comments: GENERAL: Patient is well-developed and well-nourished. Patient is nontoxic and well- hydrated and is in mild distress. ENT: Neck is soft and supple. No significant lymphadenopathy is noted. Oropharynx is clear. Moist mucous membranes. Neck has full range of motion without eliciting any pain. EYES: The sclera were anicteric and conjunctiva were pink and moist. Extraocular movements were intact and pupils were equal round and reactive to light. Eyelids were unremarkable. PULMONARY: Unlabored respirations. Good breath sounds bilaterally. No audible rales rhonchi or wheezing was noted. CARDIOVASCULAR: Patient is tachycardic at about 150 beats a minute ABDOMEN: Soft and nontender with normal bowel sounds. No palpable organomegaly was no mohini. There is no palpable pulsatile mass. SKIN: Skin is normal no lesions noted. NEUROLOGIC: Patient is alert and oriented x3. Cranial nerves II through XII are grossly intact. Motor and sensory are also intact. Normal speech, volume and content. Symmetrical smile. MUSCULOSKELETAL: Normal extremities with adequate strength and full range of motion. No lower extremity swelling or edema. No calf tenderness. LYMPHATICS: No significant lymphadenopathy is noted PSYCHIATRIC: Normal psychiatric evaluation. Limitations: no limitations Course Vital Signs 05/19/21 05/19/21 05/19/21 12:31 13:15 14:00 Temperature 98.1 F Pulse Rate 147 H 122 H 98 Respiratory 19 17 20 Rate Blood Pressure 72/43 114/87 103/80 O2 Sat by Pulse 97 95 97 Oximetry 05/19/21 05/19/21 14:15 15:12 Temperature Pulse Rate 112 H 114 H Respiratory 16 18 Rate Blood Pressure 108/74 94/78 O2 Sat by Pulse 97 98 Oximetry Medical Decision Making - Medical Decision Making EKG shows possible flutter at 155 bpm NC interval 160 QRS is 90 QT interval 316 QTC is 507. Patient's EKG shows ST segment depression in leads V2 through the 4. Patient received Cardizem after a Cardizem bolus. Patient's heart rate slowed also repeat EKG was done. Patient's EKG showed atrial flutter at 106 bpm with a variable block QRS is 74 QT interval 3:30 QTC is 438. Patient's troponin was elevated however help heparin was not started because patient was already on a anticoagulant Patient is a troponin came back elevated I consulted cardiology they did come down into the emergency department to see the patient. Spoke with Dr. Sanabria agreed to admit the patient admitted the patient I wrote admitting orders. - Lab Data Result diagrams: 05/19/21 12:54 05/19/21 12:54 Lab Results 05/19/21 05/19/21 05/19/21 Range/Units 12:54 12:54 12:54 WBC 10.8 H (3.8-10.6) k/uL RBC 4.66 (4.30-5.90) m/uL Hgb 16.1 (13.0-17.5) gm/dL Hct 48.1 (39.0-53.0) % MCV 103.3 H (80.0-100.0) fL MCH 34.5 (25.0-35.0) pg MCHC 33.4 (31.0-37.0) g/dL RDW 12.9 (11.5-15.5) % Plt Count 192 (150-450) k/uL MPV 7.8 Neutrophils % 83 % Lymphocytes % 9 % Monocytes % 6 % Eosinophils % 0 % Basophils % 0 % Neutrophils # 9.0 H (1.3-7.7) k/uL Lymphocytes # 1.0 (1.0-4.8) k/uL Monocytes # 0.7 (0-1.0) k/uL Eosinophils # 0.0 (0-0.7) k/uL Basophils # 0.0 (0-0.2) k/uL Macrocytosis Slight PT 10.6 (9.0-12.0) sec INR 1.0 (<1.2) APTT 24.6 (22.0-30.0) sec D-Dimer 0.33 (<0.60) mg/L FEU Sodium 136 L (137-145) mmol/L Potassium 4.5 (3.5-5.1) mmol/L Chloride 103 (98-107) mmol/L Carbon Dioxide 20 L (22-30) mmol/L Anion Gap 13 mmol/L BUN 44 H (9-20) mg/dL Creatinine 2.15 H (0.66-1.25) mg/dL Est GFR (CKD-EPI)AfAm 31 (>60 ml/min/1.73 sqM) Est GFR (CKD-EPI)NonAf 27 (>60 ml/min/1.73 sqM) Glucose 289 H (74-99) mg/dL Plasma Lactic Acid Rodolfo (0.7-2.0) mmol/L Calcium 9.2 (8.4-10.2) mg/dL Magnesium 2.0 (1.6-2.3) mg/dL Total Bilirubin 1.9 H (0.2-1.3) mg/dL AST 198 H (17-59) U/L ALT 45 (4-49) U/L Alkaline Phosphatase 115 (38-126) U/L Troponin I (0.000-0.034) ng/mL NT-Pro-B Natriuret Pep pg/mL Total Protein 6.8 (6.3-8.2) g/dL Albumin 3.9 (3.5-5.0) g/dL Coronavirus (PCR) (Not Detectd) 05/19/21 05/19/21 05/19/21 Range/Units 12:54 12:54 12:54 WBC (3.8-10.6) k/uL RBC (4.30-5.90) m/uL Hgb (13.0-17.5) gm/dL Hct (39.0-53.0) % MCV (80.0-100.0) fL MCH (25.0-35.0) pg MCHC (31.0-37.0) g/dL RDW (11.5-15.5) % Plt Count (150-450) k/uL MPV Neutrophils % % Lymphocytes % % Monocytes % % Eosinophils % % Basophils % % Neutrophils # (1.3-7.7) k/uL Lymphocytes # (1.0-4.8) k/uL Monocytes # (0-1.0) k/uL Eosinophils # (0-0.7) k/uL Basophils # (0-0.2) k/uL Macrocytosis PT (9.0-12.0) sec INR (<1.2) APTT (22.0-30.0) sec D-Dimer (<0.60) mg/L FEU Sodium (137-145) mmol/L Potassium (3.5-5.1) mmol/L Chloride (98-107) mmol/L Carbon Dioxide (22-30) mmol/L Anion Gap mmol/L BUN (9-20) mg/dL Creatinine (0.66-1.25) mg/dL Est GFR (CKD-EPI)AfAm (>60 ml/min/1.73 sqM) Est GFR (CKD-EPI)NonAf (>60 ml/min/1.73 sqM) Glucose (74-99) mg/dL Plasma Lactic Acid Rodolfo 4.4 H* (0.7-2.0) mmol/L Calcium (8.4-10.2) mg/dL Magnesium (1.6-2.3) mg/dL Total Bilirubin (0.2-1.3) mg/dL AST (17-59) U/L ALT (4-49) U/L Alkaline Phosphatase (38-126) U/L Troponin I 40.900 H* (0.000-0.034) ng/mL NT-Pro-B Natriuret Pep 8430 pg/mL Total Protein (6.3-8.2) g/dL Albumin (3.5-5.0) g/dL Coronavirus (PCR) (Not Detectd) 05/19/21 Range/Units 12:57 WBC (3.8-10.6) k/uL RBC (4.30-5.90) m/uL Hgb (13.0-17.5) gm/dL Hct (39.0-53.0) % MCV (80.0-100.0) fL MCH (25.0-35.0) pg MCHC (31.0-37.0) g/dL RDW (11.5-15.5) % Plt Count (150-450) k/uL MPV Neutrophils % % Lymphocytes % % Monocytes % % Eosinophils % % Basophils % % Neutrophils # (1.3-7.7) k/uL Lymphocytes # (1.0-4.8) k/uL Monocytes # (0-1.0) k/uL Eosinophils # (0-0.7) k/uL Basophils # (0-0.2) k/uL Macrocytosis PT (9.0-12.0) sec INR (<1.2) APTT (22.0-30.0) sec D-Dimer (<0.60) mg/L FEU Sodium (137-145) mmol/L Potassium (3.5-5.1) mmol/L Chloride (98-107) mmol/L Carbon Dioxide (22-30) mmol/L Anion Gap mmol/L BUN (9-20) mg/dL Creatinine (0.66-1.25) mg/dL Est GFR (CKD-EPI)AfAm (>60 ml/min/1.73 sqM) Est GFR (CKD-EPI)NonAf (>60 ml/min/1.73 sqM) Glucose (74-99) mg/dL Plasma Lactic Acid Rodolfo (0.7-2.0) mmol/L Calcium (8.4-10.2) mg/dL Magnesium (1.6-2.3) mg/dL Total Bilirubin (0.2-1.3) mg/dL AST (17-59) U/L ALT (4-49) U/L Alkaline Phosphatase (38-126) U/L Troponin I (0.000-0.034) ng/mL NT-Pro-B Natriuret Pep pg/mL Total Protein (6.3-8.2) g/dL Albumin (3.5-5.0) g/dL Coronavirus (PCR) Not Detected (Not Detectd) Critical Care Time Critical Care Time: Yes Total Critical Care Time: 35 Disposition Clinical Impression: New onset a-fib, Non-STEMI (non-ST elevated myocardial infarction) Disposition: ADMITTED IP TO THIS HOSP Referrals: Hoa Lorenz MD [Primary Care Provider] - 1-2 days Time of Disposition: 15:21
--- NOTE | 2021-05-19 13:11 | XR ---
EXAMINATION TYPE: XR chest 2V DATE OF EXAM: 05/19/2021 COMPARISON: 12/19/2019 TECHNIQUE: PA and lateral views submitted. HISTORY: Shortness of breath FINDINGS: Hyperinflation suggests COPD and there is a coarsened interstitium. Heart size normal. Arthropathy of the shoulders with diffuse osteopenia. No pneumothorax. Degenerative changes spine. Postsurgical natty nge overlying the abdomen. Diffuse osteopenia and arthropathy of the shoulders. Atherosclerotic ying e aorta. IMPRESSION: 1. 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
[2021-05-19 13:30] LABS: Basophils % (A) 0 %; Eosinophils % (A) 0 %; HCT 48.1 % (39.0-53.0); HGB 16.1 gm/dL (13.0-17.5); Lymphocytes % (A) 9 %; MCH 34.5 pg (25.0-35.0); MCHC 33.4 g/dL (31.0-37.0); MCV 103.3 fL (80.0-100.0); Macrocytosis Slight; Mean Platelet Volume 7.8; Monocytes # (A) 0.7 k/uL (0-1.0); Monocytes % (A) 6 %; Neutrophils % (A) 83 %; Platelet Count 192 k/uL (150-450); RBC 4.66 m/uL (4.30-5.90); RDW 12.9 % (11.5-15.5); WBC 10.8 k/uL (3.8-10.6)
[2021-05-19 13:33] LABS: Albumin 3.9 g/dL (3.5-5.0); Calcium 9.2 mg/dL (8.4-10.2); Potassium 4.5 mmol/L (3.5-5.1); Total Bilirubin 1.9 mg/dL (0.2-1.3); Total Protein 6.8 g/dL (6.3-8.2)
[2021-05-19 13:35] LABS: Partial Thromboplastin Time 24.6 sec (22.0-30.0); Prothrombin Time 10.6 sec (9.0-12.0)
[2021-05-19] MEDS ORDERED: HEPARIN SODIUM 1,000 UN/ML (10ML VL) IV ONE (14:30)
[2021-05-19] MEDS ORDERED: HEPARIN SODIUM 1,000 UN/ML (10ML VL) IV PRN (14:30)
[2021-05-19] MEDS ORDERED: ASPIRIN 325 MG TAB PO STA (14:32)
[2021-05-19] MEDS ORDERED: ATORVASTATIN 80 MG TAB PO STA (14:33)
[2021-05-19] MEDS ORDERED: DEXTROSE 5% IN WATER 100 ML with AMIODARONE 300 MG IV ONE (15:15)
--- NOTE | 2021-05-19 15:17 | P.CRDCN ---
History of Present Illness History of present illness: HISTORY OF PRESENTING ILLNESS This is a pleasant 85-year-old male past medical history significant for coronary artery disease status post PCI to the RCA in 2001, hypertension, dyslipidemia, type 2 diabetes, paroxysmal atrial fibrillation on Eliquis, mild to moderate aortic regurgitation. He follows in the office with Dr. Garcia. We have been asked to see in consultation for atrial fibrillation with RVR and elevated troponin. Patient is seen and examined in the emergency department. Josh green states that he's been having shortness of breath, dyspnea on exertion and pain in his bilateral upper back, bilateral neck and bilateral shoulders for 3 days. He states his pain is aggravated by activity. He states that even doing his normal walking from his house to his garage he has significant shortness of breath. He denies chest pain, palpitations, lightheadedness, dizziness, syncope or near-syncope. He did have associated nausea. Denies any abdominal pain, symptoms of orthopnea or PND. He denies any fever, cough, chills. His pain in his upper back, neck and shoulders has resolved. Patient was started on IV Cardizem and given 1L IV saline bolus . On admission patient was hypotensive blood pressure 72/43, afebrile, oxygen saturations 97% on room air DIAGNOSTICS EKG reveals atrial fibrillation with rapid ventricular response HR, 155, ST segment depression in leads V2 through V4. Last Cardiac Catheterization 11/2005 revealed patent stent in RCA, 40% ostial stenosis of the diagonal branch and diffuse disease involving the distal LAD, but is a very small-caliber vessel. Telemetry tracings indicate atrial fibrillation with rapid ventricular response. Chest xray hyperinflation, COPD, possible chronic interstitial pulmonary fibrosis. Laboratory reviewed, troponin 40.9, sodium 136, potassium 4.5, BUN 44, serum and 2.1, magnesium 2.0, proBNP 8430, d-dimer negative, WBC 10.8, hemoglobin 16.1, platelets 192, covid19 negative Most recent echocardiogram 07/2020 revealed EF of 55%, mild to moderate aortic regurgitation. Most recent stress test Lexiscan 07/2020 was negative for reversible ischemia. Current home medications include Eliquis 5 mg twice a day, simvastatin 20 mg nightly, metoprolol titrate 50 mg twice a day, amlodipine 5 mg daily REVIEW OF SYSTEMS At the time of my exam: CONSTITUTIONAL: Denies fever or chills. CARDIOVASCULAR: Denies chest pain,+ shortness of breath, Denies orthopnea, PND or palpitations. RESPIRATORY: Denies cough. GASTROINTESTINAL: Denies abdominal pain, diarrhea, constipation, nausea or vomiting. MUSCULOSKELETAL: Denies myalgias. NEUROLOGIC: Denies numbness, tingling, headache or weakness. ENDOCRINE: Denies fatigue, weight change, polydipsia or polyurina. GENITOURINARY: Denies burning, hematuria or urgency with micturation. HEMATOLOGIC: Denies history of anemia or bleeding. PHYSICAL EXAMINATION CONSTITUTIONAL: No apparent distress. HEENT: Head is normocephalic. Pupils are equal, round. Sclerae anicteric. Mucous membranes of the mouth are moist. No JVD. No carotid bruit. CHEST EXAMINATION: Lungs are clear to auscultation. No chest wall tenderness is noted on palpation or with deep breathing. HEART EXAMINATION: Irregular rate and rhythm. S1, S2 heard. Systolic ejection murmur noted. ABDOMEN: Soft, nontender. Positive bowel sounds. EXTREMITIES: 2+ peripheral pulses, no lower extremity edema and no calf tender ness. SKIN: warm, dry NEUROLOGIC EXAMINATION: Patient is awake, alert and oriented x3. ASSESSMENT NSTEMI Paroxysmal atrial fibrillation with rapid ventricular response, on [facility] outpatient Coronary artery disease status post PCI to the RCA in 2001 Acute on chronic kidney disease History of hypertension Hypotension Dyslipidemia Type 2 diabetes Mild to moderate aortic regurgitation PLAN Stop IV Cardizem Start IV 300mg Amiodarone bolus, followed by amiodarone drip Start IV heparin Aspirin, statin, metoprolol tartrate 25mg BID Hold patient's amlodipine Trend troponin, repeat EKG Obtain 2D echocardiogram and doppler study to assess cardiac structure and function. Patient will need cardiac catheterization, and patient is agreeable. We will most likely complete cardiac catheterization tomorrow I have discussed the risks, benefits and alternative therapies for the above- mentioned procedure and for both sedation/analgesia as well as necessary blood product administration, if indicated, as they pertain to this patient. The patient has indicated understanding and acceptance of the risks and procedures discussed. Questions have been answered appropriately and he is agreeable to m ove forward with the above-stated procedure. Further recommendations based on clinical course Thank you kindly for this consultation. Nurse Practitioner note has been reviewed, I agree with a documented findings and plan of care. Patient was seen and examined. Past Medical History Past Medical History: Diabetes Mellitus History of Any Multi-Drug Resistant Organisms: None Reported Past Surgical History: Appendectomy Past Anesthesia/Blood Transfusion Reactions: No Reported Reaction Past Psychological History: No Psychological Hx Reported Smoking Status: Never smoker Past Alcohol Use History: None Reported Past Drug Use History: None Reported - Past Family History Father History Unknown: Yes Medications and Allergies Home Medications Medication Instructions Recorded Confirmed Type glipiZIDE [Glucotrol] 5 mg PO DAILY 06/04/19 05/19/21 History Metoprolol Tartrate [Lopressor] 50 mg PO BID 06/05/19 05/19/21 History Simvastatin [Zocor] 20 mg PO HS 06/05/19 05/19/21 History amLODIPine [Norvasc] 5 mg PO DAILY 06/05/19 05/19/21 History Acetaminophen Tab [Tylenol] 325 - 650 mg PO Q6H PRN 10/08/19 05/19/21 History Apixaban [Eliquis] 5 mg PO BID 05/19/21 05/19/21 History Allergies Allergy/AdvReac Type Severity Reaction Status Date / Time No Known Allergies Allergy Verified 05/19/21 14:51 Physical Exam Vitals: Vital Signs Temp Pulse Resp BP Pulse Ox 05/19/21 12:31 98.1 F 147 H 19 72/43 97 Intake and Output 05/18/21 05/19/21 05/19/21 22:59 06:59 14:59 Other: Weight 78.471 kg Results 05/19/21 12:54 05/19/21 12:54 Cardiac Enzymes 05/19/21 05/19/21 Range/Units 12:54 12:54 AST 198 H (17-59) U/L Troponin I 40.900 H* (0.000-0.034) ng/mL Coagulation 05/19/21 Range/Units 12:54 PT 10.6 (9.0-12.0) sec APTT 24.6 (22.0-30.0) sec CBC 05/19/21 Range/Units 12:54 WBC 10.8 H (3.8-10.6) k/uL RBC 4.66 (4.30-5.90) m/uL Hgb 16.1 (13.0-17.5) gm/dL Hct 48.1 (39.0-53.0) % Plt Count 192 (150-450) k/uL Comprehensive Metabolic Panel 05/19/21 Range/Units 12:54 Sodium 136 L (137-145) mmol/L Potassium 4.5 (3.5-5.1) mmol/L Chloride 103 (98-107) mmol/L Carbon Dioxide 20 L (22-30) mmol/L BUN 44 H (9-20) mg/dL Creatinine 2.15 H (0.66-1.25) mg/dL Glucose 289 H (74-99) mg/dL Calcium 9.2 (8.4-10.2) mg/dL AST 198 H (17-59) U/L ALT 45 (4-49) U/L Alkaline Phosphatase 115 (38-126) U/L Total Protein 6.8 (6.3-8.2) g/dL Albumin 3.9 (3.5-5.0) g/dL Current Medications Generic Name Dose Route Start Last Admin Trade Name Freq PRN Reason Stop Dose Admin Diltiazem HCl 125 mg/ Sodium 125 mls @ 5 mls/hr 05/19/21 13:00 05/19/21 13:15 Chloride IV 5 mg/hr .Q24H TIM 5 mls/hr Administration 5 MG/HR Intake and Output 05/18/21 05/19/21 05/19/21 22:59 06:59 14:59 Other: Weight 78.471 kg Patient Weight 05/20/21 06:59 Weight 78.471 kg 05/19/21 12:54 05/19/21 12:54
[2021-05-19] MEDS ORDERED: NITROGLYCERIN SL TABS 0.4 MG TAB SUBLINGUAL PRN (15:22)
[2021-05-19] MEDS ORDERED: AMIODARONE 360 MG in DEXTROSE 5% IN WATER 200 ML IV ONE ×2 (15:30)
[2021-05-19] MEDS: HEPARIN SOD,PORK IN 0.45% NACL 25,000 UNIT in 0.45% NACL 1 250ML.BAG IV SCH (15:35)
[2021-05-19] MEDS ORDERED: NITROGLYCERIN OINT 1 INCH/GM PACKET TOPICAL SCH (18:00)
[2021-05-19] MEDS ORDERED: FUROSEMIDE 10 MG/ML 2 ML VIAL IV ONE (19:10)
[2021-05-19] MEDS ORDERED: LORazepam 0.5 MG TAB PO PRN (19:18)
[2021-05-19] MEDS ORDERED: ACETAMINOPHEN TAB 325 MG TAB PO PRN (19:18)
[2021-05-19] MEDS ORDERED: LACTULOSE 20 GM/30 ML CUP PO PRN (19:18)
[2021-05-19] MEDS ORDERED: CALCIUM CARBONATE 500 MG CHEWABLE PO PRN (19:18)
[2021-05-19] MEDS ORDERED: NALOXONE 0.4 MG/ML 1 ML VIAL IV PRN (19:18)
[2021-05-19] MEDS ORDERED: ONDANSETRON 4 MG/2 ML VIAL IVP PRN (19:18)
[2021-05-19] MEDS ORDERED: MELATONIN 3 MG TABLET PO PRN (19:18)
--- NOTE | 2021-05-19 19:27 | P.HPIM ---
History of Present Illness H&P Date: 05/19/21 Chief Complaint: Short of breath This is a very pleasant 85-year-old patient of Dr. Hoa Lorenz. Chronic stable medical conditions include diabetes, hypertension, hyperlipidemia. Patient's previously had a CAD with PCI to RCA in 2001. Also paroxysmal atrial fibrillation on eliquis. He does follow with clinical supervisor is Dr. Millie Kate. Patient now presents to 3 days of shortness of breath discomfort in the upper chest upper back. Unable to lay comfortable. Some palpitation. Tired rundown. Discomfort even presented dressed just the description he was just feeling off. Finally decided to come in. No exacerbating or relieving factors. Some orthopnea. No lower extremity swelling. In the ER found to be in atrial fibrillation rapid ventricular rate. Was placed and IV Cardizem. Earlier seen by cardiology. Given IV bolus of amiodarone. Patient reverted to sinus rhythm. Review of systems: GEN.: Tired EYES: None HEENT: None NECK: None RESPIRATORY: As above CARDIOVASCULAR: As above GASTROINTESTINAL: None GENITOURINARY: None MUSCULOSKELETAL: None LYMPHATICS: None HEMATOLOGICAL: None PSYCHIATRY: None NEUROLOGICAL: None Past medical history to include: CAD with PCI to RCA in 2001, hypertension, hyperlipidemia, diabetes type 2, paroxysmal atrial fibrillation on eliquis, mild to moderate aortic regurgitation, Social history: Lives alone. Was a daily from a. No alcohol or smoking. Family history: Reviewed, noncontributory to presentation Physical examination: VITAL SIGNS: 98.1, 147, 19, 72/43, 97% on room air upon presentation GENERAL: BMI 24.8, laying in bed awake, not in distress. EYES: Pupils equal. Conjunctiva normal. HEENT: External appearance of nose and ears normal, oral cavity grossly normal. NECK: JVD not raised; masses not palpable. HEART: First and second heart sounds are normal; no edema. LUNGS: Respiratory rate normal; clear to auscultation. ABDOMEN: Soft, nontender, liver spleen not palpable, no masses palpable. PSYCH: Alert and oriented x3; mood and affect normal. MUSCULOSKELETAL:No Clubbing/cyanosis;muscles-grossly intact. Evidence of OA NEUROLOGICAL: Cranial nerves grossly intact; no facial asymmetry, power and sensation grossly intact. LYMPHATICS: No lymph nodes palpable in the axilla and neck INVESTIGATIONS, reviewed in the clinical context: White count 10.18 globin 16.1 platelets 192 sodium 136 potassium 4.5 BUN 44 creatinine 2.15 Troponin I 14.9, 37.8 ProBNP 8430 Coronavirus [PCR]: Not detected EKG tracing personally reviewed by me-atrial fibrillation with rapid ventricular rate. ST segment depression Chest x-ray film personally reviewed by me shows: Venous prominence with fluid in the fissure Previous labs: May 2019: BUN 31 and creatinine 1.79 Assessment and plan: -Patient presented to 3 days of chest discomfort shortness of breath. Acute non-Q wave MD. Eliquis has been held. IV heparin. Lopressor. Aspirin. Lopressor -CAD with a prior history of PCI to RCA in 2001 Aspirin. Beta bárbara. -IV heparin monitoring Follow PTT -Acute congestive heart failure. EF not known. From underlying ischemic cardiomyopathy and from uncontrolled A. fib.@d-echo -Paroxysmal atrial fibrillation with a rapid ventricular rate. Converted to sinus rhythm. Patient initially was on IV Cardizem. Received a dose of IV bolus amiodarone. -Diabetes mellitus type 2 on oral hypoglycemic, uncontrolled with hyperglycemia Hold oral hypoglycemic. Levemir 16 units. Accu-Cheks and sliding scale. -Essential hypertension Blood pressure currently running of the lower side. Hold amlodipine. Lopressor. Keep a close eye on blood pressure. -Hyperlipidemia Lipitor 40 mg daily at bedtime -Chronic kidney disease stage III suspect underlying diabetic nephropathy and hypertensive nephrosclerosis. Follow renal function closely.renal ultrasound Aspirin. Beta bárbara. IV heparin. 2-D echo. Renal ultrasound. IV amiodarone. Hold hypoglycemic. Levemir. Follow Accu-Cheks. Lipitor. Repeat labs. Cardiology consulted. Given the complexity and severity of patient's condition expect the patient to be in the hospital at least for 2 overnights Past Medical History Past Medical History: Diabetes Mellitus History of Any Multi-Drug Resistant Organisms: None Reported Past Surgical History: Appendectomy Past Anesthesia/Blood Transfusion Reactions: No Reported Reaction Past Psychological History: No Psychological Hx Reported Smoking Status: Never smoker Past Alcohol Use History: None Reported Past Drug Use History: None Reported - Past Family History Father History Unknown: Yes Medications and Allergies Home Medications Medication Instructions Recorded Confirmed Type glipiZIDE [Glucotrol] 5 mg PO DAILY 06/04/19 05/19/21 History Metoprolol Tartrate [Lopressor] 50 mg PO BID 06/05/19 05/19/21 History Simvastatin [Zocor] 20 mg PO HS 06/05/19 05/19/21 History amLODIPine [Norvasc] 5 mg PO DAILY 06/05/19 05/19/21 History Acetaminophen Tab [Tylenol] 325 - 650 mg PO Q6H PRN 10/08/19 05/19/21 History Apixaban [Eliquis] 5 mg PO BID 05/19/21 05/19/21 History Allergies Allergy/AdvReac Type Severity Reaction Status Date / Time No Known Allergies Allergy Verified 05/19/21 14:51 Physical Exam Vitals: Vital Signs Temp Pulse Resp BP Pulse Ox 05/19/21 15:31 52 L 18 97/56 95 05/19/21 15:12 114 H 18 94/78 98 05/19/21 14:15 112 H 16 108/74 97 05/19/21 14:00 98 20 103/80 97 05/19/21 13:15 122 H 17 114/87 95 05/19/21 12:31 98.1 F 147 H 19 72/43 97 Intake and Output 05/19/21 05/19/21 05/19/21 06:59 14:59 22:59 Other: Weight 78.471 kg Results CBC & Chem 7: 05/19/21 12:54 05/19/21 12:54 Labs: Abnormal Lab Results - Last 24 Hours (Table) 05/19/21 05/19/21 05/19/21 Range/Units 12:54 12:54 12:54 WBC 10.8 H (3.8-10.6) k/uL MCV 103.3 H (80.0-100.0) fL Neutrophils # 9.0 H (1.3-7.7) k/uL Sodium 136 L (137-145) mmol/L Carbon Dioxide 20 L (22-30) mmol/L BUN 44 H (9-20) mg/dL Creatinine 2.15 H (0.66-1.25) mg/dL Glucose 289 H (74-99) mg/dL Plasma Lactic Acid Rodolfo 4.4 H* (0.7-2.0) mmol/L Total Bilirubin 1.9 H (0.2-1.3) mg/dL AST 198 H (17-59) U/L Troponin I (0.000-0.034) ng/mL 05/19/21 05/19/21 Range/Units 12:54 16:33 WBC (3.8-10.6) k/uL MCV (80.0-100.0) fL Neutrophils # (1.3-7.7) k/uL Sodium (137-145) mmol/L Carbon Dioxide (22-30) mmol/L BUN (9-20) mg/dL Creatinine (0.66-1.25) mg/dL Glucose (74-99) mg/dL Plasma Lactic Acid Rodolfo (0.7-2.0) mmol/L Total Bilirubin (0.2-1.3) mg/dL AST (17-59) U/L Troponin I 40.900 H* 37.800 H* (0.000-0.034) ng/mL
[2021-05-19 20:19] LABS: INR 1.1 (<1.2); Partial Thromboplastin Time 57.2 sec (22.0-30.0); Prothrombin Time 11.2 sec (9.0-12.0)
[2021-05-19] MEDS: METOPROLOL TARTRATE 25 MG TAB PO SCH (20:42)
[2021-05-19 20:59] LABS: Glucose,Whole Blood 163 mg/dL (75-99)
--- NOTE | 2021-05-19 23:09 | US ---
EXAMINATION TYPE: US kidneys/renal and bladder DATE OF EXAM: 05/19/2021 COMPARISON: NONE CLINICAL HISTORY: assess renal ultrasound for CKD. Assess for CKD. EXAM MEASUREMENTS: Right Kidney: 10.9 x 5.0 x 5.0 cm Left Kidney: 9.2 x 5.3 x 4.6 cm Right Kidney: Anechoic area seen laterally: 4.4 x 4.0 x 3.9 cm. Septated anechoic area seen medially: 5.5 x 3.8 x 4.0 cm. Smaller additional anechoic area seen mid. Left Kidney: Slightly limited visibility, appears heterogeneous. Bladder: Appears anechoic. Bilateral Jets seen: Yes IMPRESSION: Multiple right-sided renal cortical cysts. No hydronephrosis. Bilateral ureteral jets are seen and no sign of obstruction. No evidence of a bladder mass.
[2021-05-19] MEDS: INSULIN DETEMIR (LEVEMIR) 100 UNIT/ML SYR SQ SCH (23:30)
[2021-05-19] MEDS: ATORVASTATIN 40 MG TAB PO SCH (23:30)
[2021-05-19] MEDS: INSULIN ASPART (NovoLOG) 100 UNIT/ML VIAL SQ SCH (23:32)
--- NOTE | 2021-05-19 23:58 | XR ---
EXAMINATION TYPE: XR chest 1V DATE OF EXAM: 05/19/2021 COMPARISON: 05/19/2021 HISTORY: Short of breath TECHNIQUE: FINDINGS: There is extensive coarse interstitial infiltrate in the lungs. Heart size is normal. Bony thorax is intact. IMPRESSION: There is moderately severe pulmonary interstitial edema which is new compared to exam 10 hours ago.
[2021-05-20] MEDS: AMIODARONE 450 MG in DEXTROSE 5% IN WATER 250 ML IV SCH ×4 (00:11→14:44)
[2021-05-20] MEDS ORDERED: FUROSEMIDE 10 MG/ML 4 ML VIAL IV STA (04:26)
[2021-05-20] MEDS ORDERED: HEPARIN SODIUM,PORCINE 10,000 UNIT in SODIUM CHLORIDE 0.9% 1,000 ML IRRIGATION PRN (07:00)
[2021-05-20] MEDS ORDERED: HEPARIN SODIUM,PORCINE 2,500 UNIT in SODIUM CHLORIDE 0.9% 250 ML IRRIGATION PRN (07:00)
[2021-05-20 07:04] LABS: Basophils % (A) 0 %; Eosinophils % (A) 0 %; HCT 44.8 % (39.0-53.0); HGB 14.6 gm/dL (13.0-17.5); Lymphocytes # (A) 0.8 k/uL (1.0-4.8); Lymphocytes % (A) 6 %; MCH 33.1 pg (25.0-35.0); MCHC 32.6 g/dL (31.0-37.0); MCV 101.4 fL (80.0-100.0); Mean Platelet Volume 7.9; Monocytes # (A) 0.8 k/uL (0-1.0); Monocytes % (A) 6 %; Neutrophils # (A) 10.8 k/uL (1.3-7.7); Neutrophils % (A) 86 %; Platelet Count 193 k/uL (150-450); RBC 4.42 m/uL (4.30-5.90); RDW 12.2 % (11.5-15.5); WBC 12.5 k/uL (3.8-10.6)
[2021-05-20] MEDS ORDERED: SODIUM CHLORIDE 0.9% 1,000 ML in EMPTY BAG 1 BAG IV ONE (07:10)
[2021-05-20 07:13] LABS: African American GFR (CKD) 29 (>60 ml/min/1.73 sqM); Anion Gap 9 mmol/L; Blood Urea Nitrogen 51 mg/dL (9-20); Calcium 8.7 mg/dL (8.4-10.2); Carbon Dioxide 20 mmol/L (22-30); Chloride 105 mmol/L (98-107); Glucose 161 mg/dL (74-99); Non-African American GFR(CKD) 25 (>60 ml/min/1.73 sqM); Potassium 4.3 mmol/L (3.5-5.1); Sodium 134 mmol/L (137-145)
[2021-05-20 07:22] LABS: Prothrombin Time 10.9 sec (9.0-12.0)
[2021-05-20] MEDS: INSULIN ASPART (NovoLOG) 100 UNIT/ML VIAL SQ SCH ×4 (08:45→22:23)
[2021-05-20] MEDS: METOPROLOL TARTRATE 25 MG TAB PO SCH ×2 (08:46→22:23)
[2021-05-20] MEDS: ASPIRIN 81 MG PO SCH (08:46)
[2021-05-20 08:54] LABS: Glucose,Whole Blood 137 mg/dL (75-99)
[2021-05-20] MEDS ORDERED: ASPIRIN 325 MG TAB PO SCH (09:00)
--- NOTE | 2021-05-20 10:13 | P.PN ---
Subjective This is a pleasant 85-year-old male past medical history significant for coronary artery disease status post PCI to the RCA in 2001, hypertension, dy slipidemia, type 2 diabetes, paroxysmal atrial fibrillation on Eliquis, mild to moderate aortic regurgitation. He follows in the office with Dr. Garcia. We have been asked to see in consultation for atrial fibrillation with RVR and elevated troponin. Patient presented to the emergency department on 05/19/21 with complaints of shortness of breath, dyspnea on exertion and pain in his bilateral upper back, bilateral neck and bilateral shoulders for 3 days. He states his pain is aggravated by activity. He states that even doing his normal walking from his house to his garage he has significant shortness of breath. Patient was started on IV Cardizem and given 1L IV saline bolus EKG revealed atrial fibrillation with rapid ventricular response HR, 155, ST segment depression in leads V2 through V4. Troponin 40.9-->37.8-->47.0 Cardizem drip was stopped. Patient started on IV amiodarone 300mg bolus and IV amiodarone drip, IV heparin drip. Most recent echocardiogram 07/2020 revealed EF of 55%, mild to moderate aortic regurgitation. 05/20/21 Patient seen and examined in the emergency department. He is sitting up in the chair. Overnight patient had acute onset shortness of breath, chest x-ray revealed moderately severe pulmonary systolic edema. Patient was given IV Lasix 40 mg. Patient's shortness of breath improved. He has no further pain or shortness of breath. His troponin is 47. Labs reviewed, sCr 2.29 (2.15 yesterday), BUN 51. He is maintained on IV amiodarone 0.5mg/min, IV heparin, atorvastatin, aspirin, metoprolol tartrate 25 mg twice a day. He converted back to sinus mechanism currently HR 50s-60s. PHYSICAL EXAMINATION Blood pressure 96/64, heart rate 60, saturations 99% on 3 L nasal cannula. CONSTITUTIONAL: No apparent distress. HEENT: Neck Supple. No JVD. CHEST EXAMINATION: Lungs are mild bilateral crackles to auscultation. No chest wall tenderness is noted on palpation or with deep breathing. HEART EXAMINATION: Regular rate and rhythm. S1, S2 heard. Systolic ejection murmur noted. ABDOMEN: Soft, nontender. Positive bowel sounds. EXTREMITIES: 2+ peripheral pulses, no lower extremity edema and no calf tenderness. NEUROLOGIC EXAMINATION: Patient is awake, alert and oriented x3. ASSESSMENT NSTEMI Paroxysmal atrial fibrillation with rapid ventricular response, on Eliquis outpatient Coronary artery disease status post PCI to the RCA in 2001 Acute on chronic kidney disease History of hypertension Hypotension Dyslipidemia Type 2 diabetes Mild to moderate aortic regurgitation PLAN -Continue IV amiodarone drip 0.5mg/min, when completed start PO amiodarone 200mg BID -Continue IV heparin -Aspirin, statin, metoprolol tartrate 25mg BID -Continue to hold patient's amlodipine -Obtain 2D echocardiogram and doppler study to assess cardiac structure and function. -Patient needs cardiac catheterization, and patient is agreeable. Plan for cardiac catheterization with Dr. Cummings today. -Nephrology consulted, due to kidney function, patient may require hemodialysis after cardiac catheterization. This was discussed with the patient. -Further recommendations based on clinical course Nurse Practitioner note has been reviewed, I agree with a documented findings and plan of care. Patient was seen and examined. Objective - Vital Signs Vital signs: Vital Signs Temp 98.2 F 05/20/21 04:00 Pulse 60 05/20/21 08:48 Resp 16 05/20/21 08:48 BP 96/64 05/20/21 08:48 Pulse Ox 99 05/20/21 08:48 Intake & Output 05/19/21 05/20/21 05/20/21 18:59 06:59 18:59 Output Total 450 Balance -450 Weight 78.471 kg Output: Urine 450 - Labs CBC & Chem 7: 05/20/21 06:26 05/20/21 06:26 Labs: Abnormal Lab Results - Last 24 Hours (Table) 05/19/21 05/19/21 05/19/21 Range/Units 12:54 12:54 12:54 WBC 10.8 H (3.8-10.6) k/uL MCV 103.3 H (80.0-100.0) fL Neutrophils # 9.0 H (1.3-7.7) k/uL Lymphocytes # (1.0-4.8) k/uL APTT (22.0-30.0) sec Sodium 136 L (137-145) mmol/L Carbon Dioxide 20 L (22-30) mmol/L BUN 44 H (9-20) mg/dL Creatinine 2.15 H (0.66-1.25) mg/dL Glucose 289 H (74-99) mg/dL POC Glucose (mg/dL) (75-99) mg/dL Plasma Lactic Acid Rodolfo 4.4 H* (0.7-2.0) mmol/L Total Bilirubin 1.9 H (0.2-1.3) mg/dL AST 198 H (17-59) U/L Troponin I (0.000-0.034) ng/mL 05/19/21 05/19/21 05/19/21 Range/Units 12:54 16:33 19:30 WBC (3.8-10.6) k/uL MCV (80.0-100.0) fL Neutrophils # (1.3-7.7) k/uL Lymphocytes # (1.0-4.8) k/uL APTT 57.2 H (22.0-30.0) sec Sodium (137-145) mmol/L Carbon Dioxide (22-30) mmol/L BUN (9-20) mg/dL Creatinine (0.66-1.25) mg/dL Glucose (74-99) mg/dL POC Glucose (mg/dL) (75-99) mg/dL Plasma Lactic Acid Rodolfo (0.7-2.0) mmol/L Total Bilirubin (0.2-1.3) mg/dL AST (17-59) U/L Troponin I 40.900 H* 37.800 H* (0.000-0.034) ng/mL 05/19/21 05/19/21 05/20/21 Range/Units 19:30 20:58 02:31 WBC (3.8-10.6) k/uL MCV (80.0-100.0) fL Neutrophils # (1.3-7.7) k/uL Lymphocytes # (1.0-4.8) k/uL APTT 50.7 H (22.0-30.0) sec Sodium (137-145) mmol/L Carbon Dioxide (22-30) mmol/L BUN (9-20) mg/dL Creatinine (0.66-1.25) mg/dL Glucose (74-99) mg/dL POC Glucose (mg/dL) 163 H (75-99) mg/dL Plasma Lactic Acid Rodolfo (0.7-2.0) mmol/L Total Bilirubin (0.2-1.3) mg/dL AST (17-59) U/L Troponin I 47.000 H* (0.000-0.034) ng/mL 05/20/21 05/20/21 05/20/21 Range/Units 06:26 06:26 08:43 WBC 12.5 H (3.8-10.6) k/uL MCV 101.4 H (80.0-100.0) fL Neutrophils # 10.8 H (1.3-7.7) k/uL Lymphocytes # 0.8 L (1.0-4.8) k/uL APTT (22.0-30.0) sec Sodium 134 L (137-145) mmol/L Carbon Dioxide 20 L (22-30) mmol/L BUN 51 H (9-20) mg/dL Creatinine 2.29 H (0.66-1.25) mg/dL Glucose 161 H (74-99) mg/dL POC Glucose (mg/dL) 137 H (75-99) mg/dL Plasma Lactic Acid Rodolfo (0.7-2.0) mmol/L Total Bilirubin (0.2-1.3) mg/dL AST (17-59) U/L Troponin I (0.000-0.034) ng/mL
--- NOTE | 2021-05-20 10:31 | ECHOF ---
Referral Reason:elevated troponin MEASUREMENTS -------- HEIGHT: 152.4 cm WEIGHT: 78.5 kg BP: RVIDd: 3.0 cm (< 3.3) IVSd: 0.9 cm (0.6 - 1.1) LVIDd: 4.9 cm (3.9 - 5.3) LVPWd: 1.4 cm (0.6 - 1.1) IVSs: 1.1 cm LVIDs: 3.9 cm LVPWs: 1.5 cm LA Diam: 3.8 cm (2.7 - 3.8) Ao Diam: 2.9 cm (2.0 - 3.7) AV Cusp: 2.0 cm (1.5 - 2.6) MV E Clement: 0.82 m/s MV DecT: 206 ms MV A Clement: 0.34 m/s MV E/A Ratio: 2.42 RAP: 5.00 mmHg RVSP: 40.83 mmHg FINDINGS -------- Sinus rhythm. This was a techncally difficult study with suboptimal views, , Definity utilized for enhancement of i mages. Overall left ventricular systolic function is mild-moderately impaired with, an EF between 40 - 45 %. Lateral hypokinesis Posterior hypokinesis The right ventricle is normal in size. The left atrial size is normal. The right atrial size is normal. There is mild aortic valve sclerosis. There is no evidence of aortic regurgitation. Mild mitral regurgitation is present. Mild tricuspid regurgitation present. Right ventricular systolic pressure is normal at < 35 mmHg. The pulmonic valve was not well visualized. There is no pericardial effusion. CONCLUSIONS -------- 1. This was a techncally difficult study with suboptimal views, , Definity utilized for enhancement o f images. 2. Overall left ventricular systolic function is mild-moderately impaired with, an EF between 40 - 45 %. 3. Lateral hypokinesis 4. Posterior hypokinesis 5. The right ventricle is normal in size. 6. The left atrial size is normal. 7. The right atrial size is normal. 8. There is mild aortic valve sclerosis. 9. Mild mitral regurgitation is present. 10. Mild tricuspid regurgitation present. 11. The pulmonic valve was not well visualized. 12. There is no pericardial effusion. CLINICAL LABORATORY SERVICE TEACHER: Bhakti Monteiro RDCS
[2021-05-20 10:44] LABS: Chol/HDL Ratio 3.23 Ratio; LDL Cholesterol,Calculated 104.3 mg/dL (0.0-131.0); VLDL Calculation 15.24 mg/dL (5.00-40.00)
[2021-05-20 12:45] LABS: Glucose,Whole Blood 110 mg/dL (75-99)
[2021-05-20] MEDS: HEPARIN SOD,PORK IN 0.45% NACL 25,000 UNIT in 0.45% NACL 1 250ML.BAG IV SCH (14:42)
--- NOTE | 2021-05-20 16:40 | P.PN ---
Progress Note - Text Progress Note Date: 05/20/21 Chief Complaint: Short of breath This is a very pleasant 85-year-old patient of Dr. Hoa Lorenz. Chronic stable medical conditions include diabetes, hypertension, hyperlipidemia. Patient's previously had a CAD with PCI to RCA in 2001. Also paroxysmal atrial fibrillation on eliquis. He does follow with [facility] biller is Dr. Millie Kate. Patient now presents to 3 days of shortness of breath discomfort in the upper chest upper back. Unable to lay comfortable. Some palpitation. Tired rundown. Discomfort even presented dressed just the description he was just feeling off. Finally decided to come in. No exacerbating or relieving factors. Some orthopnea. No lower extremity swelling. In the ER found to be in atrial fibrillation rapid ventricular rate. Was placed and IV Cardizem. Earlier seen by cardiology. Given IV bolus of amiodarone. Patient reverted to sinus rhythm. Admitted with acute non-Q wave AL, possible CHF exacerbation, atrial fibrillation rapid ventricular rate. IV heparin. IV amiodarone. IV Cardizem. Reverted to sinus rhythm. May 20: Overflow in the ER. No chest pain or shortness of breath. Sitting up. Cardiology is contemplating cardiac catheterization. IV heparin drip. Review of systems: Was done for constitutional, cardiovascular, GI, pulmonary. relevant finding as above Active Medications Acetaminophen (Acetaminophen Tab 325 Mg Tab) 650 mg PO Q6HR PRN PRN Reason: Mild Pain or Fever > 100.5 Amiodarone HCl (Amiodarone 200 Mg Tab) 200 mg PO BID [facility] Aspirin (Aspirin 81 Mg) 81 mg PO DAILY [facility] Last Admin: 05/20/21 08:46 Dose: 81 mg Documented by: Atorvastatin Calcium (Atorvastatin 40 Mg Tab) 40 mg PO HS [facility] Last Admin: 05/19/21 23:30 Dose: 40 mg Documented by: Calcium Carbonate/Glycine (Calcium Carbonate 500 Mg Chewable) 1,000 mg PO Q4HR PRN PRN Reason: Dyspepsia Heparin Sodium (Porcine) (Heparin Sodium 1,000 Un/Ml (10ml Vl)) 0 unit IV PER PROTOCOL PRN; Protocol PRN Reason: Low PTT Heparin Sodium/Sodium Chloride (25,000 unit/ Sodium Chloride) 250 mls @ 9.417 mls/hr IV .Q24H [facility]; Protocol Last Admin: 05/20/21 14:42 Dose: 12 units/kg/hr, 9.417 mls/hr Documented by: Heparin Sodium (Porcine) 10, (000 unit/ Sodium Chloride) 1,001 mls @ 999 mls/hr IRRIGATION ONCE PRN PRN Reason: INTRA-OP Stop: 05/20/21 20:00 Heparin Sodium (Porcine) 2,500 (unit/ Sodium Chloride) 250.5 mls @ 250 mls/hr IRRIGATION ONCE PRN PRN Reason: INTRA-OP Stop: 05/20/21 20:00 Insulin Aspart (Insulin Aspart (Novolog) 100 Unit/Ml Vial) 0 unit SQ [facility]; Protocol Last Admin: 05/20/21 12:38 Dose: Not Given Documented by: Insulin Detemir (Insulin Detemir (Levemir) 100 Unit/Ml Syr) 16 unit SQ [facility] Last Admin: 05/19/21 23:30 Dose: 16 unit Documented by: Lactulose (Lactulose 20 Gm/30 Ml Cup) 20 gm PO DAILY PRN PRN Reason: Constipation Lorazepam (Lorazepam 0.5 Mg Tab) 0.5 mg PO Q6HR PRN PRN Reason: Anxiety Melatonin (Melatonin 3 Mg Tablet) 3 mg PO HS PRN PRN Reason: Insomnia Metoprolol Tartrate (Metoprolol Tartrate 25 Mg Tab) 25 mg PO BID [facility] Last Admin: 05/20/21 08:46 Dose: 25 mg Documented by: Naloxone HCl (Naloxone 0.4 Mg/Ml 1 Ml Vial) 0.2 mg IV Q2M PRN PRN Reason: Opioid Reversal Nitroglycerin (Nitroglycerin Sl Tabs 0.4 Mg Tab) 0.4 mg SUBLINGUAL Q5M PRN PRN Reason: Chest Pain Ondansetron HCl (Ondansetron 4 Mg/2 Ml Vial) 4 mg IVP Q8HR PRN PRN Reason: Nausea And Vomiting Past medical history to include: CAD with PCI to RCA in 2001, hypertension, hyperlipidemia, diabetes type 2, paroxysmal atrial fibrillation on eliquis, mild to moderate aortic regurgitation, Social history: Lives alone. Was a daily from a. No alcohol or smoking. Family history: Reviewed, noncontributory to presentation Physical examination: VITAL SIGNS: 98, 56, 18, 92/54, 97% on 3 L GENERAL: Sitting up in bed, awake. EYES: Pupils equal. Conjunctiva normal. HEENT: External appearance of nose and ears normal, oral cavity grossly normal. NECK: JVD not raised; masses not palpable. HEART: First and second heart sounds are normal; no edema. LUNGS: Respiratory rate normal; clear to auscultation. ABDOMEN: Soft, nontender, liver spleen not palpable, no masses palpable. PSYCH: Alert and oriented x3; mood and affect normal. MUSCULOSKELETAL:No Clubbing/cyanosis;muscles-grossly intact. Evidence of OA NEUROLOGICAL: Cranial nerves grossly intact; no facial asymmetry, power and sensation grossly intact. INVESTIGATIONS, reviewed in the clinical context: Discharge ultrasound: Multiple right-sided renal cortical cyst. No hydronephrosis. No obstruction. 2-D echocardiogram: EF 40-45%. Lateral/posterior hypokinesis. May 20: White count 12.5 hemoglobin 14.6 which is 193 potassium 4.3 BUN 51 and creatinine 2.29. Telemetry: Personally reviewed by me as: Sinus rhythm LDL 104 White count 10.18 globin 16.1 platelets 192 sodium 136 potassium 4.5 BUN 44 creatinine 2.15 Troponin I 14.9, 37.8 ProBNP 8430 Coronavirus [PCR]: Not detected EKG tracing personally reviewed by me-atrial fibrillation with rapid ventricular rate. ST segment depression Chest x-ray film personally reviewed by me shows: Venous prominence with fluid in the fissure Previous labs: May 2019: BUN 31 and creatinine 1.79 Assessment and plan: -Patient presented to 3 days of chest discomfort shortness of breath. Acute non-Q wave AL. Eliquis has been held. IV heparin. Lopressor. Aspirin. Lopressor -CAD with a prior history of PCI to RCA in 2001 Aspirin. Beta bárbara. -IV heparin monitoring Follow PTT -Acute congestive heart failure from systolic dysfunction EF 40-45%. From underlying ischemic cardiomyopathy and from uncontrolled A. fib. Follow with cardiology -Paroxysmal atrial fibrillation with a rapid ventricular rate. Converted to sinus rhythm. Patient initially was on IV Cardizem. Received a dose of IV bolus amiodarone. Lopressor 25 mg twice a day. IV heparin. -Diabetes mellitus type 2 on oral hypoglycemic, uncontrolled with hyperglycemia Hold oral hypoglycemic. Levemir 16 units. Accu-Cheks and sliding scale. -Essential hypertension Blood pressure currently running of the lower side. Hold amlodipine. Lopressor. Keep a close eye on blood pressure. -Hyperlipidemia Lipitor 40 mg daily at bedtime -Chronic kidney disease stage III suspect underlying diabetic nephropathy and hypertensive nephrosclerosis. Renal ultrasound. Consult nephrology. Aspirin. Beta bárbara. IV heparin. By mouth amiodarone. . Levemir. Follow Accu-Cheks. Lipitor. Repeat labs. Cardiology is contemplating cardiac catheterization. Keep a very close eye on renal function.
[2021-05-20 18:44] LABS: Glucose,Whole Blood 197 mg/dL (75-99)
--- NOTE | 2021-05-20 20:02 | CONS ---
CONSULTATION REASON FOR CONSULT: Acute kidney injury. HISTORY OF PRESENT ILLNESS: The patient is an 85-year-old male who was admitted to the hospital yesterday with complaints of shortness of breath, palpitations. The patient was found to be in atrial fibrillation with RVR and is maintained on IV amiodarone. The patient denies any previous history of kidney diseases. His creatinine was 2.29 today, yesterday it was 2.5. Previous creatinine noted in 2020 has been 1.7-1.8 mg/dL. The patient denies use of any nonsteroidal anti-inflammatory agents. His blood pressure has been low with systolic 92-87 mmHg and initially at 72. Currently patient is voiding in a urinal. He states he is feeling better. PAST MEDICAL HISTORY: Type 2 diabetes, coronary artery disease. PAST SURGICAL HISTORY: Appendectomy. SOCIAL HISTORY: Negative for smoking, drug abuse or alcohol abuse. MEDICATIONS: Medications prior to admission included Glucotrol, Lopressor, Zocor, Norvasc, Tylenol, Eliquis. ALLERGIES: None. EXAMINATION: Patient is comfortable, awake, not in any acute distress. Blood pressure 92/54, heart rate 56 per minute, he is afebrile. Examination of the heart S1, S2. Examination of the lungs, decreased breath sounds at the bases. Abdomen is soft, nontender. Examination of lower extremities shows trace edema. RELAY TESTER exam grossly intact. LAB: Show sodium 134, potassium 4.3, chloride 105, CO2 is 20, BUN 51, creatinine 2.29. UA is not available. Hemoglobin 14.6. ASSESSMENT: 1. Acute kidney injury secondary to hypotension and hemodynamic instability, currently nonoliguric. Blood pressure remains low. The patient is not on any significant antihypertensive medications. 2. Atrial fibrillation with RVR maintained on oral amiodarone status post IV amiodarone. 3. Chronic kidney disease NKF stage 4, previous creatinine 1.7-1.8 mg/dL in 2020. Check urinalysis. Check ultrasound of the kidneys. PLAN: Continue with the amiodarone and beta blockers to control heart rate. Check urinalysis. Follow up on ultrasound. Avoid nephrotoxic agents. Repeat labs in a.m. The patient will need outpatient followup for CKD. Hopefully renal function will stabilize once blood pressure improves. Check random cortisol level given the hypotension. Thank you for this consultation. Will continue to follow the patient with you during his hospitalization. MMODL / IJN: [id number] /
[2021-05-20 22:20] LABS: Glucose,Whole Blood 117 mg/dL (75-99)
[2021-05-20] MEDS: ATORVASTATIN 40 MG TAB PO SCH (22:23)
[2021-05-20] MEDS: INSULIN DETEMIR (LEVEMIR) 100 UNIT/ML SYR SQ SCH (22:23)
[2021-05-20] MEDS: AMIODARONE 200 MG TAB PO SCH ×2 (22:24→22:25)
[2021-05-21 02:12] LABS: Appearance,Urine Clear (Clear); Bacteria,Urine Occasional /hpf; Bilirubin,Urine Negative (Negative); Blood,Urine Small (Negative); Color,Urine Yellow; Glucose,Urine (UA) Negative (Negative); Ketones,Urine Negative (Negative); Leukocyte Esterase,Urine Moderate (Negative); Mucus,Urine Rare /hpf; Nitrite,Urine Negative (Negative); Protein,Urine Trace (Negative); RBC,Urine 6 /hpf (0-5); Specific Gravity,Urine 1.014 (1.001-1.035); Urobilinogen,Urine <2.0 mg/dL (<2.0); WBC,Urine 40 /hpf (0-5)
[2021-05-21 06:29] LABS: Glucose,Whole Blood 79 mg/dL (75-99)
[2021-05-21] MEDS: INSULIN ASPART (NovoLOG) 100 UNIT/ML VIAL SQ SCH ×4 (06:30→21:38)
[2021-05-21 06:43] LABS: Calcium 8.5 mg/dL (8.4-10.2); Potassium 4.6 mmol/L (3.5-5.1)
[2021-05-21 07:05] LABS: Glucose,Whole Blood 83 mg/dL (75-99)
--- NOTE | 2021-05-21 08:40 | XR ---
EXAMINATION TYPE: XR chest 1V DATE OF EXAM: 05/21/2021 COMPARISON: 05/19/2021 HISTORY: 85-year-old male CHF TECHNIQUE: Single frontal view of the chest is obtained. FINDINGS: Heart normal in size. Hyperinflation. These interstitial densities, right greater than left persist b ut are slightly improving bowel. No sizable pleural effusion. IMPRESSION: COPD with bilateral interstitial opacities, right greater than left. Findings persist but are improvi ng compared to prior exam.
[2021-05-21] MEDS: ASPIRIN 81 MG PO SCH (09:24)
[2021-05-21] MEDS: AMIODARONE 200 MG TAB PO SCH ×2 (09:24→21:40)
[2021-05-21] MEDS: METOPROLOL TARTRATE 25 MG TAB PO SCH ×2 (09:24→21:40)
[2021-05-21 11:41] LABS: Glucose,Whole Blood 76 mg/dL (75-99)
--- NOTE | 2021-05-21 12:17 | P.PN ---
Subjective This is a pleasant 85-year-old male past medical history significant for coronary artery disease status post PCI to the RCA in 2001, hypertension, dy slipidemia, type 2 diabetes, paroxysmal atrial fibrillation on Eliquis, mild to moderate aortic regurgitation. He follows in the office with Dr. Garcia. We have been asked to see in consultation for atrial fibrillation with RVR and elevated troponin. Patient presented to the emergency department on 05/19/21 with complaints of shortness of breath, dyspnea on exertion and pain in his bilateral upper back, bilateral neck and bilateral shoulders for 3 days. He states his pain is aggravated by activity. He states that even doing his normal walking from his house to his garage he has significant shortness of breath. Patient was started on IV Cardizem and given 1L IV saline bolus EKG revealed atrial fibrillation with rapid ventricular response HR, 155, ST segment depression in leads V2 through V4. Troponin 40.9-->37.8-->47.0 Cardizem drip was stopped. Patient started on IV amiodarone 300mg bolus and IV amiodarone drip, IV heparin drip. Most recent echocardiogram 07/2020 revealed EF of 55%, mild to moderate aortic regurgitation. 05/21/21 Patient seen and examined on 3S cardiac stepdown unit. He denies any shortness of breath or chest pain. His troponin was up to 47. Labs reviewed, u chuyortunately his kidney function has not improved. Nephrology has been consulted. Sodium 133, sCr 2.40 (2.29 yesterday), BUN 62. patient did have a low grade fever overnight of Tmax 100.4. Patient denies any cough, chills. Chest xray with bilateral interstitial opacities Right greater than left. He was started on IV ceftriaxone. He is maintained on PO amiodarone 200mg BID, IV heparin, atorvastatin, aspirin, metoprolol tartrate 25 mg twice a day. He has been in and out of atrial fibrillation. Currently in atrial fibrillation, heart rates are controlled. Echocardiogram revealed the 4045 percent, lateral and posterior hypokinesis, mild mitral regurgitation, mild tricuspid regurgitation. PHYSICAL EXAMINATION Blood pressure 113/76, heart rate 104, Temp 100.4, 93% on 3L nasal cannula CONSTITUTIONAL: No apparent distress. HEENT: Neck Supple. No JVD. CHEST EXAMINATION: Lungs are mild bilateral crackles to auscultation. No chest wall tenderness is noted on palpation or with deep breathing. HEART EXAMINATION: Irregular rate and rhythm. S1, S2 heard. Systolic ejection murmur noted. ABDOMEN: Soft, nontender. Positive bowel sounds. EXTREMITIES: 2+ peripheral pulses, no lower extremity edema and no calf tenderness. NEUROLOGIC EXAMINATION: Patient is awake, alert and oriented x3. ASSESSMENT NSTEMI Paroxysmal atrial fibrillation with rapid ventricular response, on [facility] outpatient Ischemic cardiomyopathy with EF 40-45% Coronary artery disease status post PCI to the RCA in 2001 Acute on chronic kidney disease History of hypertension Hypotension Dyslipidemia Type 2 diabetes Mild to moderate aortic regurgitation PLAN -Continue PO amiodarone 200mg BID -Continue IV heparin -Aspirin, statin, metoprolol tartrate 25mg BID -Continue to hold patient's amlodipine -Patient needs cardiac catheterization, and patient is agreeable. Due to patient's kidney function we will plan for cardiac catheterization with Dr. Garcia on Tuesday05/25/21 -Nephrology consulted, due to kidney function, patient may require hemodialysis after cardiac catheterization. This was discussed with the patient. -Further recommendations based on clinical course Nurse Practitioner note has been reviewed, I agree with a documented findings and plan of care. Patient was seen and examined. Objective - Vital Signs Vital signs: Vital Signs Temp 99.5 F 05/21/21 03:15 Pulse 104 H 05/21/21 03:15 Resp 18 05/21/21 03:15 BP 113/76 05/21/21 03:15 Pulse Ox 93 L 05/21/21 03:15 Intake & Output 05/20/21 05/21/21 05/21/21 18:59 06:59 18:59 Intake Total 460.195 500 Output Total 400 150 Balance 460.195 100 -150 Weight 78.471 kg Intake: Intake, IV Titration 460.195 Amount Amiodarone 450 mg In 242.505 Dextrose 5% in Water 250 ml @ 0.5 MG/MIN 16.667 mls/hr IV .Q15H [facility] Rx#: [id number] Heparin Sod,Pork in 0.45% 217.69 NaCl 25,000 unit In 0.45 % NaCl 1 250ml.bag @ 12 UNITS/KG/HR 9.417 mls/hr IV .Q24H [facility] Rx#: [id number] Oral 500 Output: Urine 400 150 Other: Voiding Method Urinal # Voids 1 - Labs CBC & Chem 7: 05/20/21 06:26 05/21/21 05:57 Labs: Abnormal Lab Results - Last 24 Hours (Table) 05/20/21 05/20/21 05/20/21 Range/Units 06:29 12:41 18:43 APTT (22.0-30.0) sec Sodium (137-145) mmol/L BUN (9-20) mg/dL Creatinine (0.66-1.25) mg/dL POC Glucose (mg/dL) 110 H 197 H (75-99) mg/dL Cortisol 32.7 H (3.1-22.4) ug/dL Urine Protein (Negative) Urine Blood (Negative) Ur Leukocyte Esterase (Negative) Urine RBC (0-5) /hpf Urine WBC (0-5) /hpf Urine Bacteria (None) /hpf Urine Mucus (None) /hpf 05/20/21 05/20/21 05/21/21 Range/Units 22:19 22:23 01:15 APTT 45.3 H (22.0-30.0) sec Sodium (137-145) mmol/L BUN (9-20) mg/dL Creatinine (0.66-1.25) mg/dL POC Glucose (mg/dL) 117 H (75-99) mg/dL Cortisol (3.1-22.4) ug/dL Urine Protein Trace H (Negative) Urine Blood Small H (Negative) Ur Leukocyte Esterase Moderate H (Negative) Urine RBC 6 H (0-5) /hpf Urine WBC 40 H (0-5) /hpf Urine Bacteria Occasional H (None) /hpf Urine Mucus Rare H (None) /hpf 05/21/21 05/21/21 Range/Units 05:57 05:57 APTT 49.4 H (22.0-30.0) sec Sodium 133 L (137-145) mmol/L BUN 62 H (9-20) mg/dL Creatinine 2.40 H (0.66-1.25) mg/dL POC Glucose (mg/dL) (75-99) mg/dL Cortisol (3.1-22.4) ug/dL Urine Protein (Negative) Urine Blood (Negative) Ur Leukocyte Esterase (Negative) Urine RBC (0-5) /hpf Urine WBC (0-5) /hpf Urine Bacteria (None) /hpf Urine Mucus (None) /hpf
--- NOTE | 2021-05-21 12:55 | PN ---
PROGRESS NOTE Patient is seen for followup for acute kidney injury. He was admitted to the hospital with atrial fibrillation with RVR. Patient's creatinine was 2.1 on admission. It is currently up to 2.4. Blood pressure has been on the lower side, with systolic down to 84 early this morning. Patient is not on any diuretics. Chest x-ray from today shows bilateral interstitial opacities which appear to be improved. Currently patient is not on any Lasix. He did receive some initially. Patient's ejection fraction is 40% to 45%. He denies any chest pains or shortness of breath. He did have a temperature of 100.4 degrees Fahrenheit early this morning. On examination, blood pressure 113/74, heart rate 104 per minute, temperature 100.4 degrees Fahrenheit. EXAMINATION OF THE HEART: S1 and S2. EXAMINATION OF LUNGS: Bilateral breath sounds are heard. Decreased breath sounds at the bases. Abdomen is soft, non-tender. Examination of lower extremities shows no evidence of edema. MOLD CLOSER EXAM: Grossly intact. Labs show sodium 133, potassium 4.6, BUN 62, creatinine 2.4. ASSESSMENT: 1. Acute kidney injury associated with hemodynamic instability with atrial fibrillation with rapid ventricular response with slight worsening of creatinine related to episode of hypotension. Patient also had low-grade temperature. UA shows about 40 WBCs. Urine culture will be sent out. Currently not on any IV fluids or diuretics. Patient is encouraged to increase oral intake. Will repeat labs in a.m. No nephrotoxic agents on board. 2. Atrial fibrillation with rapid ventricular response, currently with controlled ventricular response. 3. Fever. Rule out UTI. 4. Chronic kidney disease, stage 4. Previous creatinine 1.7 to 1.8, most likely associated with nephrosclerosis. Ultrasound of the kidneys done yesterday shows multiple right-sided renal cortical cysts. No hydronephrosis seen. PLAN: Check urine culture. Continue ceftriaxone. Hold diuretics. Repeat labs in a.m. MMODL / IJN: [id number] /
[2021-05-21 16:43] LABS: Glucose,Whole Blood 139 mg/dL (75-99)
[2021-05-21] MEDS: HEPARIN SOD,PORK IN 0.45% NACL 25,000 UNIT in 0.45% NACL 1 250ML.BAG IV SCH (17:18)
--- NOTE | 2021-05-21 19:57 | P.PN ---
Progress Note - Text Progress Note Date: 05/21/21 Chief Complaint: Short of breath This is a very pleasant 85-year-old patient of Dr. Hoa Lorenz. Chronic stable medical conditions include diabetes, hypertension, hyperlipidemia. Patient's previously had a CAD with PCI to RCA in 2001. Also paroxysmal atrial fibrillation on eliquis. He does follow with behavioral health therapist is Dr. Millie Kate. Patient now presents to 3 days of shortness of breath discomfort in the upper chest upper back. Unable to lay comfortable. Some palpitation. Tired rundown. Discomfort even presented dressed just the description he was just feeling off. Finally decided to come in. No exacerbating or relieving factors. Some orthopnea. No lower extremity swelling. In the ER found to be in atrial fibrillation rapid ventricular rate. Was placed and IV Cardizem. Earlier seen by cardiology. Given IV bolus of amiodarone. Patient reverted to sinus rhythm. Admitted with acute non-Q wave FL, possible CHF exacerbation, atrial fibrillation rapid ventricular rate. IV heparin. IV amiodarone. IV Cardizem. Reverted to sinus rhythm. May 20: Overflow in the ER. No chest pain or shortness of breath. Sitting up. Cardiology is contemplating cardiac catheterization. IV heparin drip. May 21: reclining bed. No chest pain no shortness of breath. Cardiac catheterization currently postponed for one day. On IV heparin drip. Review of systems: Was done for constitutional, cardiovascular, GI, pulmonary. relevant finding as above Active Medications Acetaminophen (Acetaminophen Tab 325 Mg Tab) 650 mg PO Q6HR PRN PRN Reason: Mild Pain or Fever > 100.5 Last Admin: 05/21/21 03:08 Dose: 650 mg Documented by: Amiodarone HCl (Amiodarone 200 Mg Tab) 200 mg PO BID [facility] Last Admin: 05/21/21 09:24 Dose: 200 mg Documented by: Aspirin (Aspirin 81 Mg) 81 mg PO DAILY [facility] Last Admin: 05/21/21 09:24 Dose: 81 mg Documented by: Atorvastatin Calcium (Atorvastatin 40 Mg Tab) 40 mg PO HS [facility] Last Admin: 05/20/21 22:23 Dose: 40 mg Documented by: Calcium Carbonate/Glycine (Calcium Carbonate 500 Mg Chewable) 1,000 mg PO Q4HR PRN PRN Reason: Dyspepsia Heparin Sodium (Porcine) (Heparin Sodium 1,000 Un/Ml (10ml Vl)) 0 unit IV PER PROTOCOL PRN; Protocol PRN Reason: Low PTT Heparin Sodium/Sodium Chloride (25,000 unit/ Sodium Chloride) 250 mls @ 9.417 mls/hr IV .Q24H [facility]; Protocol Last Admin: 05/21/21 17:18 Dose: 12 units/kg/hr, 9.417 mls/hr Documented by: Ceftriaxone Sodium 1 gm/ (Sodium Chloride) 50 mls @ 100 mls/hr IVPB Q12HR [facility] Last Admin: 05/21/21 09:23 Dose: 100 mls/hr Documented by: Heparin Sodium (Porcine) 10, (000 unit/ Sodium Chloride) 1,001 mls @ 999 mls/hr IRRIGATION ONCE PRN PRN Reason: INTRA-OP Stop: 05/25/21 23:00 Heparin Sodium (Porcine) 2,500 (unit/ Sodium Chloride) 250.5 mls @ 250 mls/hr IRRIGATION ONCE PRN PRN Reason: INTRA-OP Stop: 05/25/21 23:00 Sodium Chloride 1,000 ml/ IV (Solution) 1,000 mls @ 235.413 mls/hr IV .Q4H15M ONE Stop: 05/25/21 04:14 Insulin Aspart (Insulin Aspart (Novolog) 100 Unit/Ml Vial) 0 unit SQ [facility]; Protocol Last Admin: 05/21/21 16:49 Dose: 1 unit Documented by: Insulin Detemir (Insulin Detemir (Levemir) 100 Unit/Ml Syr) 16 unit SQ [facility] Last Admin: 05/20/21 22:23 Dose: 16 unit Documented by: Lactulose (Lactulose 20 Gm/30 Ml Cup) 20 gm PO DAILY PRN PRN Reason: Constipation Lorazepam (Lorazepam 0.5 Mg Tab) 0.5 mg PO Q6HR PRN PRN Reason: Anxiety Melatonin (Melatonin 3 Mg Tablet) 3 mg PO HS PRN PRN Reason: Insomnia Metoprolol Tartrate (Metoprolol Tartrate 25 Mg Tab) 25 mg PO BID [facility] Last Admin: 05/21/21 09:24 Dose: 25 mg Documented by: Naloxone HCl (Naloxone 0.4 Mg/Ml 1 Ml Vial) 0.2 mg IV Q2M PRN PRN Reason: Opioid Reversal Nitroglycerin (Nitroglycerin Sl Tabs 0.4 Mg Tab) 0.4 mg SUBLINGUAL Q5M PRN PRN Reason: Chest Pain Ondansetron HCl (Ondansetron 4 Mg/2 Ml Vial) 4 mg IVP Q8HR PRN PRN Reason: Nausea And Vomiting Past medical history to include: CAD with PCI to RCA in 2001, hypertension, hyperlipidemia, diabetes type 2, paroxysmal atrial fibrillation on eliquis, mild to moderate aortic regurgitation, Social history: Lives alone. Was a daily from a. No alcohol or smoking. Family history: Reviewed, noncontributory to presentation Physical examination: VITAL SIGNS: 96.7, 76, 18, 97/65, 95% on 3 L GENERAL: Reclining bed, awake. Comfortable EYES: Pupils equal. Conjunctiva normal. HEENT: External appearance of nose and ears normal, oral cavity grossly normal. NECK: JVD not raised; masses not palpable. HEART: First and second heart sounds are normal; no edema. LUNGS: Respiratory rate normal; clear to auscultation. ABDOMEN: Soft, nontender, liver spleen not palpable, no masses palpable. PSYCH: Alert and oriented x3; mood and affect normal. MUSCULOSKELETAL:No Clubbing/cyanosis;muscles-grossly intact. Evidence of OA NEUROLOGICAL: Cranial nerves grossly intact; no facial asymmetry, power and sensation grossly intact. INVESTIGATIONS, reviewed in the clinical context: May 21: Potassium 4.6 BUN 62 creatinine 2.40 Renal ultrasound: Multiple right-sided renal cortical cyst. No hydronephrosis. No obstruction. 2-D echocardiogram: EF 40-45%. Lateral/posterior hypokinesis. May 20: White count 12.5 hemoglobin 14.6 which is 193 potassium 4.3 BUN 51 and creatinine 2.29. Telemetry: Personally reviewed by me as: Sinus rhythm LDL 104 White count 10.18 globin 16.1 platelets 192 sodium 136 potassium 4.5 BUN 44 creatinine 2.15 Troponin I 14.9, 37.8 ProBNP 8430 Coronavirus [PCR]: Not detected EKG tracing personally reviewed by me-atrial fibrillation with rapid ventricular rate. ST segment depression Chest x-ray film personally reviewed by me shows: Venous prominence with fluid in the fissure Previous labs: May 2019: BUN 31 and creatinine 1.79 Assessment and plan: - Acute non-Q wave FL. Eliquis has been held. IV heparin. Lopressor. Aspirin. Lopressor -CAD with a prior history of PCI to RCA in 2001 Aspirin. Beta bárbara. -IV heparin monitoring Follow PTT -Acute congestive heart failure from systolic dysfunction EF 40-45%. From underlying ischemic cardiomyopathy and from uncontrolled A. fib.: Better Follow with cardiology -Paroxysmal atrial fibrillation with a rapid ventricular rate. Converted to sinus rhythm. IV Cardizem-discontinued. amiodarone. Lopressor 25 mg twice a day. IV heparin. -Diabetes mellitus type 2 on oral hypoglycemic, Hold oral hypoglycemic. Levemir 12 units. Accu-Cheks and sliding scale. -Essential hypertension Lopressor 25 mg twice a day -Hyperlipidemia Lipitor 40 mg daily at bedtime -Chronic kidney disease stage III suspect underlying diabetic nephropathy and hypertensive nephrosclerosis. Renal ultrasound. Consult nephrology. -Acute kidney injury with worsening creatinine. Likely ATN from hypotension/cardiorenal syndrome Follow closely Aspirin. Beta bárbara. IV heparin. amiodarone. . Levemir. Lipitor. Cardiac catheterization postponed through Tuesday. Decrease Levemir to 12 units. given patient's significant/worsening kidney disease and patient outside the 48-hour window of acute FL risk-benefit to be further evaluated.
[2021-05-21 20:40] LABS: Glucose,Whole Blood 118 mg/dL (75-99)
[2021-05-21] MEDS: ATORVASTATIN 40 MG TAB PO SCH (21:40)
[2021-05-21] MEDS: INSULIN DETEMIR (LEVEMIR) 100 UNIT/ML SYR SQ SCH (21:41)
[2021-05-22 06:25] LABS: Glucose,Whole Blood 126 mg/dL (75-99)
[2021-05-22] MEDS: INSULIN ASPART (NovoLOG) 100 UNIT/ML VIAL SQ SCH ×4 (06:27→20:30)
[2021-05-22] MEDS: ASPIRIN 81 MG PO SCH (08:29)
[2021-05-22] MEDS: METOPROLOL TARTRATE 25 MG TAB PO SCH ×2 (08:29→20:30)
[2021-05-22] MEDS: AMIODARONE 200 MG TAB PO SCH ×2 (08:30→20:30)
[2021-05-22 10:39] LABS: Calcium 8.3 mg/dL (8.4-10.2); Potassium 5.2 mmol/L (3.5-5.1)
[2021-05-22 11:38] LABS: Glucose,Whole Blood 146 mg/dL (75-99)
--- NOTE | 2021-05-22 12:29 | P.PN ---
Subjective This is a pleasant 85-year-old male past medical history significant for coronary artery disease status post PCI to the RCA in 2001, hypertension, dy slipidemia, type 2 diabetes, paroxysmal atrial fibrillation on Eliquis, mild to moderate aortic regurgitation. He follows in the office with Dr. Garcia. We have been asked to see in consultation for atrial fibrillation with RVR and elevated troponin. Patient presented to the emergency department on 05/19/21 with complaints of shortness of breath, dyspnea on exertion and pain in his bilateral upper back, bilateral neck and bilateral shoulders for 3 days. He states his pain is aggravated by activity. He states that even doing his normal walking from his house to his garage he has significant shortness of breath. Patient was started on IV Cardizem and given 1L IV saline bolus EKG revealed atrial fibrillation with rapid ventricular response HR, 155, ST segment depression in leads V2 through V4. Troponin 40.9-->37.8-->47.0 Cardizem drip was stopped. Patient started on IV amiodarone 300mg bolus and IV amiodarone drip, IV heparin drip. Most recent echocardiogram 07/2020 revealed EF of 55%, mild to moderate aortic regurgitation. 05/22/2021 Patient seen and examined on 3S cardiac stepdown unit. He denies any shortness of breath or chest pain. He ambulating in the room without difficulty. Labs reviewed, Sodium 131, potassium 5.2, sCr 2.31 (2.40 yesterday), BUN 65. Patient without any further fever. Yesterday, Chest xray with bilateral interstitial opacities Right greater than left. He was started on IV ceftriaxone. He is maintained on PO amiodarone 200mg BID, IV heparin, atorvastatin, aspirin, metoprolol tartrate 25 mg twice a day. He has been in and out of atrial fibrillation. Currently in sinus mechanism heart rates are controlled. Echocardiogram revealed the 4045 percent, lateral and posterior hypokinesis, mild mitral regurgitation, mild tricuspid regurgitation. PHYSICAL EXAMINATION Vitals reviewed CONSTITUTIONAL: No apparent distress. HEENT: Neck Supple. No JVD. CHEST EXAMINATION: Lungs are mild bilateral crackles to auscultation. No chest wall tenderness is noted on palpation or with deep breathing. HEART EXAMINATION: Regular rate and rhythm. S1, S2 heard. Systolic ejection murmur noted. ABDOMEN: Soft, nontender. Positive bowel sounds. EXTREMITIES: 2+ peripheral pulses, no lower extremity edema and no calf tenderness. NEUROLOGIC EXAMINATION: Patient is awake, alert and oriented x3. ASSESSMENT NSTEMI Paroxysmal atrial fibrillation with rapid ventricular response, on [facility] outpatient Ischemic cardiomyopathy with EF 40-45% Coronary artery disease status post PCI to the RCA in 2001 Acute on chronic kidney disease History of hypertension Hypotension Dyslipidemia Type 2 diabetes Mild to moderate aortic regurgitation PLAN -Continue PO amiodarone 200mg BID -Continue IV heparin -Aspirin, statin, metoprolol tartrate 25mg BID -Continue to hold patient's amlodipine -Patient needs cardiac catheterization, and patient is agreeable. Due to patie nt's kidney function we will plan for cardiac catheterization with Dr. Garcia on Tuesday05/25/21 -Nephrology consulted, due to kidney function, patient may require hemodialysis after cardiac catheterization. This was discussed with the patient. -Further recommendations based on clinical course Nurse Practitioner note has been reviewed, I agree with a documented findings and plan of care. Patient was seen and examined. Objective - Vital Signs Vital signs: Vital Signs Temp 98.9 F 05/22/21 07:45 Pulse 76 05/22/21 07:45 Resp 18 05/22/21 07:45 BP 103/65 05/22/21 07:45 Pulse Ox 96 05/22/21 07:45 Intake & Output 05/21/21 05/22/21 05/22/21 18:59 06:59 18:59 Intake Total 730 236 Output Total 650 975 Balance 80 -975 236 Intake: Intake, IV Titration 250 Amount Heparin Sod,Pork in 0.45% 250 NaCl 25,000 unit In 0.45 % NaCl 1 250ml.bag @ 12 UNITS/KG/HR 9.417 mls/hr IV .Q24H [facility] Rx#: [id number] Oral 480 236 Output: Urine 650 975 - Labs CBC & Chem 7: 05/20/21 06:26 05/22/21 09:58 Labs: Abnormal Lab Results - Last 24 Hours (Table) 05/21/21 05/21/21 05/22/21 Range/Units 16:42 20:39 06:23 APTT (22.0-30.0) sec Sodium (137-145) mmol/L Potassium (3.5-5.1) mmol/L Carbon Dioxide (22-30) mmol/L BUN (9-20) mg/dL Creatinine (0.66-1.25) mg/dL Glucose (74-99) mg/dL POC Glucose (mg/dL) 139 H 118 H 126 H (75-99) mg/dL Calcium (8.4-10.2) mg/dL 05/22/21 05/22/21 05/22/21 Range/Units 09:58 09:58 11:37 APTT 47.2 H (22.0-30.0) sec Sodium 131 L (137-145) mmol/L Potassium 5.2 H (3.5-5.1) mmol/L Carbon Dioxide 19 L (22-30) mmol/L BUN 65 H (9-20) mg/dL Creatinine 2.31 H (0.66-1.25) mg/dL Glucose 167 H (74-99) mg/dL POC Glucose (mg/dL) 146 H (75-99) mg/dL Calcium 8.3 L (8.4-10.2) mg/dL Microbiology - Last 24 Hours (Table) 05/21/21 13:39 Urine Culture - Preliminary Urine,Clean Catch
[2021-05-22 16:29] LABS: Glucose,Whole Blood 142 mg/dL (75-99)
--- NOTE | 2021-05-22 17:28 | P.PN ---
Progress Note - Text Progress Note Date: 05/22/21 Chief Complaint: Short of breath This is a very pleasant 85-year-old patient of Dr. Hoa Lorenz. Chronic stable medical conditions include diabetes, hypertension, hyperlipidemia. Patient's previously had a CAD with PCI to RCA in 2001. Also paroxysmal atrial fibrillation on eliquis. 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 Millie Kate. Patient now presents to 3 days of shortness of breath discomfort in the upper chest upper back. Unable to lay comfortable. Some palpitation. Tired rundown. Discomfort even presented dressed just the description he was just feeling off. Finally decided to come in. No exacerbating or relieving factors. Some orthopnea. No lower extremity swelling. In the ER found to be in atrial fibrillation rapid ventricular rate. Was placed and IV Cardizem. Earlier seen by cardiology. Given IV bolus of amiodarone. Patient reverted to sinus rhythm. Admitted with acute non-Q wave AK, possible CHF exacerbation, atrial fibrillation rapid ventricular rate. IV heparin. IV amiodarone. IV Cardizem. Reverted to sinus rhythm. May 20: Overflow in the ER. No chest pain or shortness of breath. Sitting up. Cardiology is contemplating cardiac catheterization. IV heparin drip. May 21: reclining bed. No chest pain no shortness of breath. Cardiac catheterization currently postponed for one day. On IV heparin drip. May 22: Laying in bed. After lunch had some chest pressure. Be followed by cardiology. On IV heparin drip. Review of systems: Was done for constitutional, cardiovascular, GI, pulmonary. relevant finding as above Active Medications Acetaminophen (Acetaminophen Tab 325 Mg Tab) 650 mg PO Q6HR PRN PRN Reason: Mild Pain or Fever > 100.5 Last Admin: 05/21/21 03:08 Dose: 650 mg Documented by: Amiodarone HCl (Amiodarone 200 Mg Tab) 200 mg PO BID [facility] Last Admin: 05/22/21 08:30 Dose: 200 mg Documented by: Aspirin (Aspirin 81 Mg) 81 mg PO DAILY [facility] Last Admin: 05/22/21 08:29 Dose: 81 mg Documented by: Atorvastatin Calcium (Atorvastatin 40 Mg Tab) 40 mg PO HS [facility] Last Admin: 05/21/21 21:40 Dose: 40 mg Documented by: Calcium Carbonate/Glycine (Calcium Carbonate 500 Mg Chewable) 1,000 mg PO Q4HR PRN PRN Reason: Dyspepsia Heparin Sodium (Porcine) (Heparin Sodium 1,000 Un/Ml (10ml Vl)) 0 unit IV PER PROTOCOL PRN; Protocol PRN Reason: Low PTT Heparin Sodium/Sodium Chloride (25,000 unit/ Sodium Chloride) 250 mls @ 9.417 mls/hr IV .Q24H [facility]; Protocol Last Admin: 05/21/21 17:18 Dose: 12 units/kg/hr, 9.417 mls/hr Documented by: Ceftriaxone Sodium 1 gm/ (Sodium Chloride) 50 mls @ 100 mls/hr IVPB Q12HR [facility] Last Admin: 05/22/21 08:30 Dose: 100 mls/hr Documented by: Heparin Sodium (Porcine) 10, (000 unit/ Sodium Chloride) 1,001 mls @ 999 mls/hr IRRIGATION ONCE PRN PRN Reason: INTRA-OP Stop: 05/25/21 23:00 Heparin Sodium (Porcine) 2,500 (unit/ Sodium Chloride) 250.5 mls @ 250 mls/hr IRRIGATION ONCE PRN PRN Reason: INTRA-OP Stop: 05/25/21 23:00 Sodium Chloride 1,000 ml/ IV (Solution) 1,000 mls @ 235.413 mls/hr IV .Q4H15M ONE Stop: 05/25/21 04:14 Insulin Aspart (Insulin Aspart (Novolog) 100 Unit/Ml Vial) 0 unit SQ [facility]; Protocol Last Admin: 05/22/21 17:17 Dose: 1 unit Documented by: Insulin Detemir (Insulin Detemir (Levemir) 100 Unit/Ml Syr) 12 unit SQ [facility] Last Admin: 05/21/21 21:41 Dose: 12 unit Documented by: Lactulose (Lactulose 20 Gm/30 Ml Cup) 20 gm PO DAILY PRN PRN Reason: Constipation Lorazepam (Lorazepam 0.5 Mg Tab) 0.5 mg PO Q6HR PRN PRN Reason: Anxiety Melatonin (Melatonin 3 Mg Tablet) 3 mg PO HS PRN PRN Reason: Insomnia Metoprolol Tartrate (Metoprolol Tartrate 25 Mg Tab) 25 mg PO BID [facility] Last Admin: 05/22/21 08:29 Dose: 25 mg Documented by: Naloxone HCl (Naloxone 0.4 Mg/Ml 1 Ml Vial) 0.2 mg IV Q2M PRN PRN Reason: Opioid Reversal Nitroglycerin (Nitroglycerin Sl Tabs 0.4 Mg Tab) 0.4 mg SUBLINGUAL Q5M PRN PRN Reason: Chest Pain Ondansetron HCl (Ondansetron 4 Mg/2 Ml Vial) 4 mg IVP Q8HR PRN PRN Reason: Nausea And Vomiting Past medical history to include: CAD with PCI to RCA in 2001, hypertension, hyperlipidemia, diabetes type 2, paroxysmal atrial fibrillation on eliquis, mild to moderate aortic regurgitation, Social history: Lives alone. Was a daily from a. No alcohol or smoking. Family history: Reviewed, noncontributory to presentation Physical examination: VITAL SIGNS: 98.2, 77, 18, 110/64, 94% on 3 L GENERAL: Reclining bed, awake. EYES: Pupils equal. Conjunctiva normal. HEENT: External appearance of nose and ears normal, oral cavity grossly normal. NECK: JVD not raised; masses not palpable. HEART: First and second heart sounds are normal; no edema. LUNGS: Respiratory rate normal; clear to auscultation. ABDOMEN: Soft, nontender, liver spleen not palpable, no masses palpable. PSYCH: Alert and oriented x3; mood and affect normal. MUSCULOSKELETAL:No Clubbing/cyanosis;muscles-grossly intact. Evidence of OA NEUROLOGICAL: Cranial nerves grossly intact; no facial asymmetry, power and sensation grossly intact. INVESTIGATIONS, reviewed in the clinical context: May 22: Sodium 131 potassium 5.2. 65 creatinine 2.31 May 21: Potassium 4.6 BUN 62 creatinine 2.40 Renal ultrasound: Multiple right-sided renal cortical cyst. No hydronephrosis. No obstruction. 2-D echocardiogram: EF 40-45%. Lateral/posterior hypokinesis. May 20: White count 12.5 hemoglobin 14.6 which is 193 potassium 4.3 BUN 51 and creatinine 2.29. Telemetry: Personally reviewed by me as: Sinus rhythm LDL 104 White count 10.18 globin 16.1 platelets 192 sodium 136 potassium 4.5 BUN 44 creatinine 2.15 Troponin I 14.9, 37.8 ProBNP 8430 Coronavirus [PCR]: Not detected EKG tracing personally reviewed by me-atrial fibrillation with rapid ventricular rate. ST segment depression Chest x-ray film personally reviewed by me shows: Venous prominence with fluid in the fissure Previous labs: May 2019: BUN 31 and creatinine 1.79 Assessment and plan: - Acute non-Q wave AK. Eliquis has been held. IV heparin. Lopressor. Aspirin. Lopressor. -Post infarct angina, today Patient on IV heparin. Other medications to continue. Follow with cardiology -CAD with a prior history of PCI to RCA in 2001 Aspirin. Beta bárbara. -IV heparin monitoring Follow PTT -Acute congestive heart failure from systolic dysfunction EF 40-45%. From underlying ischemic cardiomyopathy and from uncontrolled A. fib.: Better Follow with cardiology -Paroxysmal atrial fibrillation with a rapid ventricular rate. Converted to sinus rhythm. IV Cardizem-discontinued. amiodarone. Lopressor 25 mg twice a day. IV heparin. -Diabetes mellitus type 2 on oral hypoglycemic, Hold oral hypoglycemic. Levemir 12 units. Accu-Cheks and sliding scale. -Essential hypertension Lopressor 25 mg twice a day -Hyperlipidemia Lipitor 40 mg daily at bedtime -Chronic kidney disease stage III suspect underlying diabetic nephropathy and hypertensive nephrosclerosis. Renal ultrasound. Consult nephrology. -Acute kidney injury with worsening creatinine. Likely ATN from hyp otension/cardiorenal syndrome Follow closely Aspirin. Beta bárbara. IV heparin. amiodarone. . Levemir. Lipitor. Cardiac catheterization postponed through Tuesday. Discussed with patient. Tonja mendoza with cardiology and nephrology.
--- NOTE | 2021-05-22 18:05 | PN ---
PROGRESS NOTE Patient is seen for followup for chronic kidney disease and acute kidney injury. He was admitted with atrial fibrillation with RVR. Renal function has remained fairly stable. The patient was initially diuresed. Currently he is not on any diuretics. Blood pressure has been low with systolic previously in the 84-97 range, currently mostly above 100. The patient is maintained on antibiotics for the pyuria. Urine culture is currently pending. PHYSICAL EXAMINATION: On examination today, blood pressure 102/58, heart rate 63 per minute, he is afebrile. Examination of the of the heart S1, S2. Examination of the lungs, decreased breath sounds at the bases. Abdomen is soft, nontender. Examination of lower extremities shows no significant edema. [employer] exam grossly intact. LAB: Show sodium 131, potassium 5.2, chloride 106, CO2 is 19, BUN 65, creatinine 2.3. ASSESSMENT: 1. Acute kidney injury secondary to hypotension. Renal function fairly stable. Currently not on any diuretics or IV fluids. 2. Pyuria. Urine culture is pending, maintained on antibiotics. 3. Fever with hypotension, rule out UTI. 4. Atrial fibrillation with RVR, currently controlled. 5. Chronic kidney disease stage 4. Previous creatinine 1.7-1.8, mostly associated with nephrosclerosis. No hydronephrosis noted on the ultrasound of the kidneys. 6. Cardiomyopathy with ejection fraction 40-45%. PLAN: Encourage increased oral intake. Follow up on urine cultures. Repeat labs. MMODL / IJN: [id number] /
[2021-05-22 19:57] LABS: Glucose,Whole Blood 177 mg/dL (75-99)
[2021-05-22] MEDS: INSULIN DETEMIR (LEVEMIR) 100 UNIT/ML SYR SQ SCH (20:30)
[2021-05-22] MEDS: ATORVASTATIN 40 MG TAB PO SCH (20:30)
[2021-05-23 06:39] LABS: Glucose,Whole Blood 83 mg/dL (75-99)
[2021-05-23] MEDS: INSULIN ASPART (NovoLOG) 100 UNIT/ML VIAL SQ SCH ×4 (06:42→20:13)
[2021-05-23] MEDS ORDERED: FUROSEMIDE 10 MG/ML 4 ML VIAL IV STA (08:17)
[2021-05-23] MEDS: AMIODARONE 200 MG TAB PO SCH ×2 (08:37→20:13)
[2021-05-23] MEDS: METOPROLOL TARTRATE 25 MG TAB PO SCH ×2 (08:37→20:13)
[2021-05-23] MEDS: ASPIRIN 81 MG PO SCH (08:38)
[2021-05-23] MEDS: HEPARIN SOD,PORK IN 0.45% NACL 25,000 UNIT in 0.45% NACL 1 250ML.BAG IV SCH ×2 (11:15→15:22)
[2021-05-23 11:31] LABS: Glucose,Whole Blood 134 mg/dL (75-99)
--- NOTE | 2021-05-23 11:42 | P.PN ---
Subjective Progress Note Date: 05/23/21 Principal diagnosis: NSTEMI, new onset A. fib This is Kin mendoza NP, dictating a progress note on behalf of Dr. Trammell. Patient was interviewed and examined. Patient is a pleasant 85-year-old male who initially presented to the hospital with shortness of breath and discomfort in his upper back. He was subsequently found to have an NSTEMI along with A. fib. Patient is doing okay today. He denies shortness of breath and chest pain at this time. Creatinine continues to fluctuate, is currently 2.31. Patient continues on a heparin drip. He is ambulating around the room okay. GENERAL: Well-appearing, well-nourished and in no acute distress. NECK: Supple without JVD or thyromegaly. LUNGS: Breath sounds crackles in bilateral lungs. Respiration equal and unlabored. No wheezes, rales or rhonchi. HEART: Regular rate and rhythm with systolic murmur. S1 and S2 heard. EXTREMITIES: Normal range of motion, no edema. No clubbing or cyanosis. Peripheral pulses intact and strong. VITALS: Temp 97.8, pulse 75, respirations 18, blood pressure 131/75, O2 saturation 95% on 2 L of oxygen via nasal cannula TELEMETRY: [Normal sinus rhythm] LABS: [White count 12.5, hemoglobin 14.6, platelets 193, d-dimer 0.33, sodium 131, potassium 5.2, B1 65, creatinine 2.31, calcium 8.3] IMPRESSION/PLAN: [1. NSTEMI-plan for cardiac cath on Tuesday pending patient's clinical course and lab values. Continue IV heparin. 2. Atrial fibrillation-continue metoprolol, continue amiodarone. 3. Give one dose of IV Lasix, 40 mg for crackles in the lungs. Further recommendations based on patient's clinical course.] The patient has been seen and evaluated. Plan of care has been reviewed and agreed upon by Dr. Trammell. Objective - Vital Signs Vital signs: Vital Signs Temp 97.8 F 05/23/21 08:00 Pulse 75 05/23/21 08:00 Resp 18 05/23/21 08:00 BP 131/75 05/23/21 08:00 Pulse Ox 95 05/23/21 08:00 Intake & Output 05/22/21 05/23/21 05/23/21 18:59 06:59 18:59 Intake Total 766 118 Output Total 200 200 725 Balance 566 -200 -607 Intake: Intake, IV Titration 50 Amount cefTRIAXone 1 gm In 50 Sodium Chloride 0.9% 50 ml @ 100 mls/hr IVPB Q12HR [facility] Rx#:[id number] Oral 716 118 Output: Urine 200 200 725 Other: Voiding Method Urinal # Voids 1 - Labs CBC & Chem 7: 05/20/21 06:26 05/22/21 09:58 Labs: Abnormal Lab Results - Last 24 Hours (Table) 05/22/21 05/22/21 05/22/21 Range/Units 09:58 11:37 16:28 APTT 47.2 H (22.0-30.0) sec POC Glucose (mg/dL) 146 H 142 H (75-99) mg/dL 05/22/21 05/23/21 Range/Units 19:40 08:43 APTT 33.8 H (22.0-30.0) sec POC Glucose (mg/dL) 177 H (75-99) mg/dL Microbiology - Last 24 Hours (Table) 05/21/21 13:39 Urine Culture - Final Urine,Clean Catch
[2021-05-23 13:03] LABS: Calcium 8.7 mg/dL (8.4-10.2); Potassium 4.9 mmol/L (3.5-5.1)
--- NOTE | 2021-05-23 14:52 | P.PN ---
Progress Note - Text Progress Note Date: 05/23/21 Chief Complaint: Short of breath This is a very pleasant 85-year-old patient of Dr. Hoa Lorenz. Chronic stable medical conditions include diabetes, hypertension, hyperlipidemia. Patient's previously had a CAD with PCI to RCA in 2001. Also paroxysmal atrial fibrillation on eliquis. He does follow with [facility] is Dr. Millie Kate. Patient now presents to 3 days of shortness of breath discomfort in the upper chest upper back. Unable to lay comfortable. Some palpitation. Tired rundown. Discomfort even presented dressed just the description he was just feeling off. Finally decided to come in. No exacerbating or relieving factors. Some orthopnea. No lower extremity swelling. In the ER found to be in atrial fibrillation rapid ventricular rate. Was placed and IV Cardizem. Earlier seen by cardiology. Given IV bolus of amiodarone. Patient reverted to sinus rhythm. Admitted with acute non-Q wave OK, possible CHF exacerbation, atrial fibrillation rapid ventricular rate. IV heparin. IV amiodarone. IV Cardizem. Reverted to sinus rhythm. May 20: Overflow in the ER. No chest pain or shortness of breath. Sitting up. Cardiology is contemplating cardiac catheterization. IV heparin drip. May 21: reclining bed. No chest pain no shortness of breath. Cardiac catheterization currently postponed for one day. On IV heparin drip. May 22: Laying in bed. After lunch had some chest pressure. Be followed by cardiology. On IV heparin drip. May 23: Patient is afraid to eat solid food. Gives him chest discomfort. Ordered pured diet for him. Tired. IV heparin. 3 Liters nasal cannula. Review of systems: Was done for constitutional, cardiovascular, GI, pulmonary. relevant finding as above Active Medications Acetaminophen (Acetaminophen Tab 325 Mg Tab) 650 mg PO Q6HR PRN PRN Reason: Mild Pain or Fever > 100.5 Last Admin: 05/21/21 03:08 Dose: 650 mg Documented by: Amiodarone HCl (Amiodarone 200 Mg Tab) 200 mg PO BID [facility] Last Admin: 05/23/21 08:37 Dose: 200 mg Documented by: Aspirin (Aspirin 81 Mg) 81 mg PO DAILY [facility] Last Admin: 05/23/21 08:38 Dose: 81 mg Documented by: Atorvastatin Calcium (Atorvastatin 40 Mg Tab) 40 mg PO HS TIM Last Admin: 05/22/21 20:30 Dose: 40 mg Documented by: Calcium Carbonate/Glycine (Calcium Carbonate 500 Mg Chewable) 1,000 mg PO Q4HR PRN PRN Reason: Dyspepsia Heparin Sodium (Porcine) (Heparin Sodium 1,000 Un/Ml (10ml Vl)) 0 unit IV PER PROTOCOL PRN; Protocol PRN Reason: Low PTT Heparin Sodium/Sodium Chloride (25,000 unit/ Sodium Chloride) 250 mls @ 9.417 mls/hr IV .Q24H [facility]; Protocol Last Titration: 05/23/21 14:16 Dose: Infused Documented by: Ceftriaxone Sodium 1 gm/ (Sodium Chloride) 50 mls @ 100 mls/hr IVPB Q12HR [facility] Last Admin: 05/23/21 08:37 Dose: 100 mls/hr Documented by: Heparin Sodium (Porcine) 10, (000 unit/ Sodium Chloride) 1,001 mls @ 999 mls/hr IRRIGATION ONCE PRN PRN Reason: INTRA-OP Stop: 05/25/21 23:00 Heparin Sodium (Porcine) 2,500 (unit/ Sodium Chloride) 250.5 mls @ 250 mls/hr IRRIGATION ONCE PRN PRN Reason: INTRA-OP Stop: 05/25/21 23:00 Sodium Chloride 1,000 ml/ IV (Solution) 1,000 mls @ 235.413 mls/hr IV .Q4H15M ONE Stop: 05/25/21 04:14 Insulin Aspart (Insulin Aspart (Novolog) 100 Unit/Ml Vial) 0 unit SQ [facility]; Protocol Last Admin: 05/23/21 12:39 Dose: Not Given Documented by: Insulin Detemir (Insulin Detemir (Levemir) 100 Unit/Ml Syr) 12 unit SQ HS [facility] Last Admin: 05/22/21 20:30 Dose: 12 unit Documented by: Lactulose (Lactulose 20 Gm/30 Ml Cup) 20 gm PO DAILY PRN PRN Reason: Constipation Lorazepam (Lorazepam 0.5 Mg Tab) 0.5 mg PO Q6HR PRN PRN Reason: Anxiety Last Admin: 05/22/21 20:30 Dose: 0.5 mg Documented by: Melatonin (Melatonin 3 Mg Tablet) 3 mg PO HS PRN PRN Reason: Insomnia Metoprolol Tartrate (Metoprolol Tartrate 25 Mg Tab) 25 mg PO BID TIM Last Admin: 05/23/21 08:37 Dose: 25 mg Documented by: Naloxone HCl (Naloxone 0.4 Mg/Ml 1 Ml Vial) 0.2 mg IV Q2M PRN PRN Reason: Opioid Reversal Nitroglycerin (Nitroglycerin Sl Tabs 0.4 Mg Tab) 0.4 mg SUBLINGUAL Q5M PRN PRN Reason: Chest Pain Ondansetron HCl (Ondansetron 4 Mg/2 Ml Vial) 4 mg IVP Q8HR PRN PRN Reason: Nausea And Vomiting Past medical history to include: CAD with PCI to RCA in 2001, hypertension, hyperlipidemia, diabetes type 2, paroxysmal atrial fibrillation on eliquis, mild to moderate aortic regurgitation, Social history: Lives alone. Was a daily from a. No alcohol or smoking. Family history: Reviewed, noncontributory to presentation Physical examination: VITAL SIGNS: 98, 66, 18, 170s/73, 95% on 3 L GENERAL: Reclining bed, awake. EYES: Pupils equal. Conjunctiva normal. HEENT: External appearance of nose and ears normal, oral cavity grossly normal. NECK: JVD not raised; masses not palpable. HEART: First and second heart sounds are normal; no edema. LUNGS: Respiratory rate increased; decreased breath sound. ABDOMEN: Soft, nontender, liver spleen not palpable, no masses palpable. PSYCH: Alert and oriented x3; mood and affect tired MUSCULOSKELETAL:No Clubbing/cyanosis;muscles-grossly intact. Evidence of OA NEUROLOGICAL: Cranial nerves grossly intact; no facial asymmetry, power and sensation grossly intact. INVESTIGATIONS, reviewed in the clinical context: May 23: Sodium 134 potassium 4.9 BUN 67 creatinine 2.16 May 22: Sodium 131 potassium 5.2. 65 creatinine 2.31 May 21: Potassium 4.6 BUN 62 creatinine 2.40 Renal ultrasound: Multiple right-sided renal cortical cyst. No hydronephrosis. No obstruction. 2-D echocardiogram: EF 40-45%. Lateral/posterior hypokinesis. May 20: White count 12.5 hemoglobin 14.6 which is 193 potassium 4.3 BUN 51 and creatinine 2.29. Telemetry: Personally reviewed by me as: Sinus rhythm LDL 104 White count 10.18 globin 16.1 platelets 192 sodium 136 potassium 4.5 BUN 44 crea tinine 2.15 Troponin I 14.9, 37.8 ProBNP 8430 Coronavirus [PCR]: Not detected EKG tracing personally reviewed by me-atrial fibrillation with rapid ventricular rate. ST segment depression Chest x-ray film personally reviewed by me shows: Venous prominence with fluid in the fissure Previous labs: May 2019: BUN 31 and creatinine 1.79 Assessment and plan: - Acute non-Q wave OK. Eliquis has been held. IV heparin. Lopressor. Aspirin. Lopressor. -Post infarct angina,: Slow to respond. IV heparin. Other medications to continue. Follow with cardiology -CAD with a prior history of PCI to RCA in 2001 Aspirin. Beta bárbara. -IV heparin monitoring Follow PTT -Acute congestive heart failure from systolic dysfunction EF 40-45%. From underlying ischemic cardiomyopathy and from uncontrolled A. fib.: Better Received IV Lasix today. -Paroxysmal atrial fibrillation with a rapid ventricular rate. Converted to sinus rhythm. IV Cardizem-discontinued. amiodarone. Lopressor 25 mg twice a day. IV heparin. -Diabetes mellitus type 2 on oral hypoglycemic, Hold oral hypoglycemic. Levemir 12 units. Accu-Cheks and sliding scale. -Essential hypertension Lopressor 25 mg twice a day -Hyperlipidemia Lipitor 40 mg daily at bedtime -Chronic kidney disease stage III suspect underlying diabetic nephropathy and hypertensive nephrosclerosis. Renal ultrasound. Consult nephrology. -Acute kidney injury with worsening creatinine. Likely ATN from hypotension/cardiorenal syndrome Follow closely Aspirin. Beta bárbara. IV heparin. amiodarone. . Levemir. Lipitor. Cardiac catheterization postponed through Tuesday. Received IV Lasix today. Change diet to pured diet.
[2021-05-23 16:23] LABS: Glucose,Whole Blood 117 mg/dL (75-99)
--- NOTE | 2021-05-23 16:24 | PN ---
PROGRESS NOTE Patient is seen for followup for acute kidney injury on top of chronic kidney disease. The patient is sitting up in bed. He is comfortable. Denies any significant complaints. PHYSICAL EXAMINATION: Blood pressure 117/73, heart rate 66 per minute, he is afebrile. Examination of the heart S1, S2. Examination of lungs, decreased breath sounds at the bases. Abdomen is soft, nontender. Examination of lower extremities shows no evidence of edema. 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 LAB: Show sodium 134, potassium 4.9, chloride 107, BUN 67, creatinine 2.1. ASSESSMENT: 1. Acute kidney injury, mostly acute tubular necrosis, currently improved. The patient's blood pressure was low. He had diuretics initially, currently not on diuretics. However, this morning patient was mildly hypervolemic. He did get one dose of IV Lasix earlier this morning. 2. Pyuria. Urine culture is pending, maintained on antibiotics. 3. Atrial fibrillation with RVR, currently with controlled ventricular response. 4. 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 Previous creatinine 1.7-1.8. No evidence of obstruction noted on ultrasound. 5. Cardiomyopathy, EF is 40-45%. PLAN: Will maintain patient on scheduled dose of oral diuretics starting tomorrow. The patient will need followup as outpatient for CKD. MMODL / IJN: [id number] /
[2021-05-23 19:52] LABS: Glucose,Whole Blood 123 mg/dL (75-99)
[2021-05-23] MEDS: ATORVASTATIN 40 MG TAB PO SCH (20:13)
[2021-05-23] MEDS: INSULIN DETEMIR (LEVEMIR) 100 UNIT/ML SYR SQ SCH (20:13)
[2021-05-24 06:42] LABS: Glucose,Whole Blood 87 mg/dL (75-99)
[2021-05-24] MEDS: INSULIN ASPART (NovoLOG) 100 UNIT/ML VIAL SQ SCH ×4 (08:14→21:06)
[2021-05-24] MEDS: AMIODARONE 200 MG TAB PO SCH ×2 (08:31→21:06)
[2021-05-24] MEDS: ASPIRIN 81 MG PO SCH (08:31)
[2021-05-24] MEDS: METOPROLOL TARTRATE 25 MG TAB PO SCH ×2 (08:31→21:06)
[2021-05-24] MEDS ORDERED: FUROSEMIDE 10 MG/ML 4 ML VIAL IV STA (09:23)
[2021-05-24 09:59] LABS: Basophils % (A) 0 %; Eosinophils # (A) 0.1 k/uL (0-0.7); Eosinophils % (A) 1 %; HCT 44.9 % (39.0-53.0); HGB 14.2 gm/dL (13.0-17.5); Lymphocytes # (A) 0.5 k/uL (1.0-4.8); Lymphocytes % (A) 8 %; MCH 32.9 pg (25.0-35.0); MCHC 31.7 g/dL (31.0-37.0); MCV 103.7 fL (80.0-100.0); Macrocytosis Slight; Mean Platelet Volume 8.3; Monocytes # (A) 0.6 k/uL (0-1.0); Monocytes % (A) 9 %; Neutrophils # (A) 5.5 k/uL (1.3-7.7); Neutrophils % (A) 81 %; Platelet Count 199 k/uL (150-450); RBC 4.33 m/uL (4.30-5.90); RDW 12.2 % (11.5-15.5); WBC 6.8 k/uL (3.8-10.6)
[2021-05-24 10:27] LABS: Albumin 2.7 g/dL (3.5-5.0); Calcium 8.5 mg/dL (8.4-10.2); Total Bilirubin 0.8 mg/dL (0.2-1.3); Total Protein 5.5 g/dL (6.3-8.2)
[2021-05-24 10:30] LABS: Potassium 4.8 mmol/L (3.5-5.1)
[2021-05-24 11:49] LABS: Glucose,Whole Blood 90 mg/dL (75-99)
--- NOTE | 2021-05-24 11:49 | P.PN ---
Subjective Progress Note Date: 05/24/21 This is Kin mendoza NP, dictating a progress note on behalf of Dr. Trammell. Patient was interviewed and examined. Patient reports that he doesn't feel good today, however denies chest pain and shortness of breath. He does demonstrate bilateral rhonchi on exam. We'll order another dose of Lasix 40 mg IV push 1 again today. We'll plan for cardiac cath tomorrow a.m., pending labs. GENERAL: Well-appearing, well-nourished and in no acute distress. NECK: Supple without JVD or thyromegaly. LUNGS: Breath sounds bilateral scattered rhonchi. Respiration equal and unlabored. No wheezes, rales . HEART: Regular rate and rhythm without murmurs, rubs or gallops. S1 and S2 heard. EXTREMITIES: Normal range of motion, no edema. No clubbing or cyanosis. Peripheral pulses intact and strong. VITALS: [Pulse 63, respirations 18, blood pressure 109/68, O2 saturation 97% on 3 L] TELEMETRY: [Normal sinus rhythm] LABS: [White count 6.8, hemoglobin 14.2, platelets 199, sodium 134, potassium 4.8, BUN 62, creatinine 1.91] IMPRESSION: [NSTEMI Atrial fibrillation ] PLAN: [Continue medications as prescribed Rhonchi bilaterally, give Lasix 40mg IVP x1 again today Plan for cardiac cath tomorrow am, pending labs] The patient has been seen and evaluated. Plan of care has been reviewed and agreed upon by Dr. Trammell. Objective - Vital Signs Vital signs: Vital Signs Temp 97.4 F L 05/23/21 20:30 Pulse 63 05/24/21 04:00 Resp 18 05/24/21 04:00 BP 109/68 05/24/21 04:00 Pulse Ox 97 05/24/21 04:00 Intake & Output 05/23/21 05/24/21 05/24/21 18:59 06:59 18:59 Intake Total 388.717 Output Total 925 600 Balance -536.283 -600 Intake: Intake, IV Titration 270.717 Amount Heparin Sod,Pork in 0.45% 270.717 NaCl 25,000 unit In 0.45 % NaCl 1 250ml.bag @ 12 UNITS/KG/HR 9.417 mls/hr IV .Q24H [facility] Rx#: [id number] Oral 118 Output: Urine 925 600 Other: Voiding Method Urinal - Labs CBC & Chem 7: 05/24/21 09:13 05/24/21 09:13 Labs: Abnormal Lab Results - Last 24 Hours (Table) 05/23/21 05/23/21 05/23/21 Range/Units 08:43 08:43 11:29 APTT 33.8 H (22.0-30.0) sec Sodium 134 L (137-145) mmol/L BUN 67 H (9-20) mg/dL Creatinine 2.16 H (0.66-1.25) mg/dL Glucose 136 H (74-99) mg/dL POC Glucose (mg/dL) 134 H (75-99) mg/dL 05/23/21 05/23/21 05/23/21 Range/Units 15:30 16:21 19:51 APTT 41.5 H (22.0-30.0) sec Sodium (137-145) mmol/L BUN (9-20) mg/dL Creatinine (0.66-1.25) mg/dL Glucose (74-99) mg/dL POC Glucose (mg/dL) 117 H 123 H (75-99) mg/dL 05/23/21 Range/Units 22:34 APTT 44.1 H (22.0-30.0) sec Sodium (137-145) mmol/L BUN (9-20) mg/dL Creatinine (0.66-1.25) mg/dL Glucose (74-99) mg/dL POC Glucose (mg/dL) (75-99) mg/dL
--- NOTE | 2021-05-24 13:22 | PN ---
PROGRESS NOTE Patient is seen for followup for acute kidney injury on top of chronic kidney disease. The patient's renal function is fairly stable, creatinine staying at about 1.9-2 mg/dL. EXAMINATION: Today patient is comfortable. Blood pressure 109/68, heart rate 63 per minute. He is afebrile. Examination of the heart S1, S2. Examination of the lungs, bilateral breath sounds are heard. Abdomen is soft, nontender. Examination of lower extremities shows no evidence of edema. 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 LAB: Show sodium 134, potassium 4.8, chloride 111, CO2 16, BUN 62, creatinine 1.9, hemoglobin 14.2 g/dL. ASSESSMENT: 1. Acute kidney injury secondary to hypotension. Renal function currently stable, mostly acute tubular necrosis. The patient has been hypervolemic and received a dose of IV Lasix yesterday. He does have underlying cardiomyopathy. I will continue with loop diuretics. 2. Pyuria, maintained on antibiotics. Urine culture did not show any significant growth. 3. Atrial fibrillation with RVR on initial admission, currently with controlled ventricular response. 4. 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 Baseline creatinine 1.7-1.8. No evidence of hydronephrosis on ultrasound. UA shows trace protein. 5. Cardiomyopathy, ejection fraction 40-45%. 6. Metabolic acidosis. I will add p.o. bicarb. PLAN: Add oral sodium bicarb. Add oral diuretics. Repeat labs in a.m. MMODL / IJN: [id number] /
[2021-05-24] MEDS: HEPARIN SOD,PORK IN 0.45% NACL 25,000 UNIT in 0.45% NACL 1 250ML.BAG IV SCH (15:27)
[2021-05-24] MEDS: FUROSEMIDE 40 MG TAB PO SCH (15:29)
--- NOTE | 2021-05-24 16:02 | P.PN ---
Progress Note - Text Progress Note Date: 05/24/21 Chief Complaint: Short of breath This is a very pleasant 85-year-old patient of Dr. Hoa Lorenz. Chronic stable medical conditions include diabetes, hypertension, hyperlipidemia. Patient's previously had a CAD with PCI to RCA in 2001. Also paroxysmal atrial fibrillation on eliquis. He does follow with [employer] is Dr. Millie Kate. Patient now presents to 3 days of shortness of breath discomfort in the upper chest upper back. Unable to lay comfortable. Some palpitation. Tired rundown. Discomfort even presented dressed just the description he was just feeling off. Finally decided to come in. No exacerbating or relieving factors. Some orthopnea. No lower extremity swelling. In the ER found to be in atrial fibrillation rapid ventricular rate. Was placed and IV Cardizem. Earlier seen by cardiology. Given IV bolus of amiodarone. Patient reverted to sinus rhythm. Admitted with acute non-Q wave ME, possible CHF exacerbation, atrial fibrillation rapid ventricular rate. IV heparin. IV amiodarone. IV Cardizem. Reverted to sinus rhythm. May 20: Overflow in the ER. No chest pain or shortness of breath. Sitting up. Cardiology is contemplating cardiac catheterization. IV heparin drip. May 21: reclining bed. No chest pain no shortness of breath. Cardiac catheterization currently postponed for one day. On IV heparin drip. May 22: Laying in bed. After lunch had some chest pressure. Be followed by cardiology. On IV heparin drip. May 23: Patient is afraid to eat solid food. Gives him chest discomfort. Ordered pured diet for him. Tired. IV heparin. 3 Liters nasal cannula. May 24: Eating about 50%. IV heparin. No chest pain. Awake. Review of systems: Was done for constitutional, cardiovascular, GI, pulmonary. relevant finding as above Active Medications Acetaminophen (Acetaminophen Tab 325 Mg Tab) 650 mg PO Q6HR PRN PRN Reason: Mild Pain or Fever > 100.5 Last Admin: 05/21/21 03:08 Dose: 650 mg Documented by: Amiodarone HCl (Amiodarone 200 Mg Tab) 200 mg PO BID [facility] Last Admin: 05/24/21 08:31 Dose: 200 mg Documented by: Aspirin (Aspirin 81 Mg) 81 mg PO DAILY [facility] Last Admin: 05/24/21 08:31 Dose: 81 mg Documented by: Atorvastatin Calcium (Atorvastatin 40 Mg Tab) 40 mg PO HS [facility] Last Admin: 05/23/21 20:13 Dose: 40 mg Documented by: Calcium Carbonate/Glycine (Calcium Carbonate 500 Mg Chewable) 1,000 mg PO Q4HR PRN PRN Reason: Dyspepsia Furosemide (Furosemide 40 Mg Tab) 40 mg PO BID@0900,1600 [facility] Last Admin: 05/24/21 15:29 Dose: 40 mg Documented by: Heparin Sodium (Porcine) (Heparin Sodium 1,000 Un/Ml (10ml Vl)) 0 unit IV PER PROTOCOL PRN; Protocol PRN Reason: Low PTT Heparin Sodium/Sodium Chloride (25,000 unit/ Sodium Chloride) 250 mls @ 9.417 mls/hr IV .Q24H [facility]; Protocol Last Admin: 05/24/21 15:27 Dose: Not Given Documented by: Ceftriaxone Sodium 1 gm/ (Sodium Chloride) 50 mls @ 100 mls/hr IVPB Q12HR [facility] Last Admin: 05/24/21 08:32 Dose: 100 mls/hr Documented by: Heparin Sodium (Porcine) 10, (000 unit/ Sodium Chloride) 1,001 mls @ 999 mls/hr IRRIGATION ONCE PRN PRN Reason: INTRA-OP Stop: 05/25/21 23:00 Heparin Sodium (Porcine) 2,500 (unit/ Sodium Chloride) 250.5 mls @ 250 mls/hr IRRIGATION ONCE PRN PRN Reason: INTRA-OP Stop: 05/25/21 23:00 Sodium Chloride 1,000 ml/ IV (Solution) 1,000 mls @ 235.413 mls/hr IV .Q4H15M ONE Stop: 05/25/21 04:14 Insulin Aspart (Insulin Aspart (Novolog) 100 Unit/Ml Vial) 0 unit SQ [facility]; Protocol Last Admin: 05/24/21 12:41 Dose: Not Given Documented by: Insulin Detemir (Insulin Detemir (Levemir) 100 Unit/Ml Syr) 12 unit SQ [facility] Last Admin: 05/23/21 20:13 Dose: 12 unit Documented by: Lactulose (Lactulose 20 Gm/30 Ml Cup) 20 gm PO DAILY PRN PRN Reason: Constipation Lorazepam (Lorazepam 0.5 Mg Tab) 0.5 mg PO Q6HR PRN PRN Reason: Anxiety Last Admin: 05/22/21 20:30 Dose: 0.5 mg Documented by: Melatonin (Melatonin 3 Mg Tablet) 3 mg PO HS PRN PRN Reason: Insomnia Metoprolol Tartrate (Metoprolol Tartrate 25 Mg Tab) 25 mg PO BID [facility] Last Admin: 05/24/21 08:31 Dose: 25 mg Documented by: Naloxone HCl (Naloxone 0.4 Mg/Ml 1 Ml Vial) 0.2 mg IV Q2M PRN PRN Reason: Opioid Reversal Nitroglycerin (Nitroglycerin Sl Tabs 0.4 Mg Tab) 0.4 mg SUBLINGUAL Q5M PRN PRN Reason: Chest Pain Ondansetron HCl (Ondansetron 4 Mg/2 Ml Vial) 4 mg IVP Q8HR PRN PRN Reason: Nausea And Vomiting Sodium Bicarbonate (Sodium Bicarbonate Tab 650 Mg Tab) 650 mg PO BID [facility] Past medical history to include: CAD with PCI to RCA in 2001, hypertension, hyperlipidemia, diabetes type 2, paroxysmal atrial fibrillation on eliquis, mild to moderate aortic regurgita tion, Social history: Lives alone. Was a daily from a. No alcohol or smoking. Family history: Reviewed, noncontributory to presentation Physical examination: VITAL SIGNS: 98.2, 60, 18, 111/68, 98% on room air GENERAL: Reclining bed, awake. EYES: Pupils equal. Conjunctiva normal. HEENT: External appearance of nose and ears normal, oral cavity grossly normal. NECK: JVD not raised; masses not palpable. HEART: First and second heart sounds are normal; no edema. LUNGS: Respiratory rate increased; decreased breath sound. ABDOMEN: Soft, nontender, liver spleen not palpable, no masses palpable. PSYCH: Alert and oriented x3; mood and affect tired MUSCULOSKELETAL:No Clubbing/cyanosis;muscles-grossly intact. Evidence of OA NEUROLOGICAL: Cranial nerves grossly intact; no facial asymmetry, power and sensation grossly intact. INVESTIGATIONS, reviewed in the clinical context: May 24: White count 6.8 hemoglobin 14.2 platelets 01299.8. 62 creatinine 1.91 bicarb May 23: Sodium 134 potassium 4.9 BUN 67 creatinine 2.16 May 22: Sodium 131 potassium 5.2. 65 creatinine 2.31 May 21: Potassium 4.6 BUN 62 creatinine 2.40 Renal ultrasound: Multiple right-sided renal cortical cyst. No hydronephrosis. No obstruction. 2-D echocardiogram: EF 40-45%. Lateral/posterior hypokinesis. May 20: White count 12.5 hemoglobin 14.6 which is 193 potassium 4.3 BUN 51 and creatinine 2.29. Telemetry: Personally reviewed by me as: Sinus rhythm LDL 104 White count 10.18 globin 16.1 platelets 192 sodium 136 potassium 4.5 BUN 44 creatinine 2.15 Troponin I 14.9, 37.8 ProBNP 8430 Coronavirus [PCR]: Not detected EKG tracing personally reviewed by me-atrial fibrillation with rapid ventricular rate. ST segment depression Chest x-ray film personally reviewed by me shows: Venous prominence with fluid in the fissure Previous labs: May 2019: BUN 31 and creatinine 1.79 Assessment and plan: - Acute non-Q wave ME. Eliquis- held. IV heparin. Lopressor. Aspirin. Lopressor. -Post infarct angina,: Slow to respond. IV heparin. Other medications to continue. Follow with cardiology -CAD with a prior history of PCI to RCA in 2001 Aspirin. Beta bárbara. -IV heparin monitoring Follow PTT -Acute congestive heart failure from systolic dysfunction EF 40-45%. From underlying ischemic cardiomyopathy and from uncontrolled A. fib.: Better By mouth Lasix 40 mg twice a day -Paroxysmal atrial fibrillation with a rapid ventricular rate. Converted to sinus rhythm. IV Cardizem-discontinued. amiodarone. Lopressor 25 mg twice a day. IV heparin. -Diabetes mellitus type 2 on oral hypoglycemic, Hold oral hypoglycemic. Decrease Levemir 8 units. Accu-Cheks and sliding scale. -Essential hypertension Lopressor 25 mg twice a day -Hyperlipidemia Lipitor 40 mg daily at bedtime -Chronic kidney disease stage III suspect underlying diabetic nephropathy and hypertensive nephrosclerosis. Consult nephrology. -Acute kidney injury with worsening creatinine. Likely ATN from hypotension/cardiorenal syndrome: Better Aspirin. Beta bárbara. IV heparin. amiodarone. . Levemir. Lipitor. Cardiac catheterization postponed through Tuesday. Started on by mouth Lasix by nephrology today.
[2021-05-24 16:46] LABS: Glucose,Whole Blood 96 mg/dL (75-99)
[2021-05-24 20:37] LABS: Glucose,Whole Blood 141 mg/dL (75-99)
[2021-05-24] MEDS: INSULIN DETEMIR (LEVEMIR) 100 UNIT/ML SYR SQ SCH (21:06)
[2021-05-24] MEDS: ATORVASTATIN 40 MG TAB PO SCH (21:06)
[2021-05-24] MEDS: SODIUM BICARBONATE TAB 650 MG TAB PO SCH (21:06)
[2021-05-25] MEDS ORDERED: SODIUM CHLORIDE 0.9% 1,000 ML in EMPTY BAG 1 BAG IV ONE
[2021-05-25] MEDS: HEPARIN SOD,PORK IN 0.45% NACL 25,000 UNIT in 0.45% NACL 1 250ML.BAG IV SCH ×3 (00:17→23:15)
[2021-05-25 06:09] LABS: Glucose,Whole Blood 77 mg/dL (75-99)
[2021-05-25] MEDS: SODIUM BICARBONATE TAB 650 MG TAB PO SCH ×2 (06:40→20:51)
[2021-05-25] MEDS: INSULIN ASPART (NovoLOG) 100 UNIT/ML VIAL SQ SCH ×4 (06:41→20:51)
[2021-05-25] MEDS: ASPIRIN 81 MG PO SCH (06:41)
[2021-05-25] MEDS ORDERED: HEPARIN SODIUM,PORCINE 2,500 UNIT in SODIUM CHLORIDE 0.9% 250 ML IRRIGATION PRN (07:00)
[2021-05-25] MEDS ORDERED: HEPARIN SODIUM,PORCINE 10,000 UNIT in SODIUM CHLORIDE 0.9% 1,000 ML IRRIGATION PRN (07:00)
[2021-05-25] MEDS ORDERED: LIDOCAINE 1% INJ 10MG/ML (20 ML MDV) ONE (10:32)
[2021-05-25] MEDS ORDERED: VERAPAMIL 2.5 MG/ML 2 ML AMP ONE (10:32)
[2021-05-25 10:33] LABS: Basophils % (A) 0 %; Eosinophils # (A) 0.1 k/uL (0-0.7); Eosinophils % (A) 1 %; HCT 43.6 % (39.0-53.0); HGB 14.3 gm/dL (13.0-17.5); Lymphocytes # (A) 0.7 k/uL (1.0-4.8); Lymphocytes % (A) 10 %; MCH 32.8 pg (25.0-35.0); MCHC 32.8 g/dL (31.0-37.0); MCV 100.2 fL (80.0-100.0); Mean Platelet Volume 8.2; Monocytes # (A) 0.4 k/uL (0-1.0); Monocytes % (A) 7 %; Neutrophils % (A) 80 %; Platelet Count 249 k/uL (150-450); RBC 4.35 m/uL (4.30-5.90); RDW 12.2 % (11.5-15.5); WBC 6.3 k/uL (3.8-10.6)
[2021-05-25 10:45] LABS: Calcium 8.7 mg/dL (8.4-10.2); Potassium 4.2 mmol/L (3.5-5.1)
[2021-05-25] MEDS ORDERED: fentaNYL (PF) 50 MCG/ML 2 ML AMP ONE (10:59)
[2021-05-25] MEDS ORDERED: IV FLUID CONTINUATION 1,000 ML IV ONE (11:00)
[2021-05-25] MEDS ORDERED: MIDAZOLAM 2 MG/2 ML VIAL IV ONE (11:10)
[2021-05-25] MEDS ORDERED: fentaNYL (PF) 50 MCG/ML 2 ML AMP IV ONE (11:10)
[2021-05-25] MEDS ORDERED: LIDOCAINE 1% INJ 10MG/ML (20 ML MDV) SQ ONE (11:13)
[2021-05-25] MEDS ORDERED: VERAPAMIL SYRINGE (5 MG/10 ML) INTRAARTER ONE (11:15)
[2021-05-25] MEDS ORDERED: HEPARIN SODIUM 1,000 UN/ML (10ML VL) ONE (11:16)
[2021-05-25] MEDS ORDERED: IOPAMIDOL-370 125ML BTL INJ ONE (11:39)
[2021-05-25] MEDS ORDERED: HEPARIN SODIUM 1,000 UN/ML (10ML VL) IV PRN (11:59)
[2021-05-25] MEDS ORDERED: RX INFO: IV CONTRAST WAS GIVEN 1 EACH MISC MISCELLANE PRN (12:01)
[2021-05-25] MEDS: METOPROLOL TARTRATE 25 MG TAB PO SCH ×2 (12:57→20:51)
[2021-05-25] MEDS: AMIODARONE 200 MG TAB PO SCH ×2 (12:57→20:51)
[2021-05-25] MEDS: FUROSEMIDE 40 MG TAB PO SCH ×2 (12:57→17:11)
[2021-05-25 13:09] LABS: Glucose,Whole Blood 72 mg/dL (75-99)
--- NOTE | 2021-05-25 14:59 | P.PN ---
Progress Note - Text Progress Note Date: 05/25/21 Chief Complaint: Short of breath This is a very pleasant 85-year-old patient of Dr. Hoa Lorenz. Chronic stable medical conditions include diabetes, hypertension, hyperlipidemia. Patient's previously had a CAD with PCI to RCA in 2001. Also paroxysmal atrial fibrillation on eliquis. He does follow with taxicab coordinator is Dr. Millie Kate. Patient now presents to 3 days of shortness of breath discomfort in the upper chest upper back. Unable to lay comfortable. Some palpitation. Tired rundown. Discomfort even presented dressed just the description he was just feeling off. Finally decided to come in. No exacerbating or relieving factors. Some orthopnea. No lower extremity swelling. In the ER found to be in atrial fibrillation rapid ventricular rate. Was placed and IV Cardizem. Earlier seen by cardiology. Given IV bolus of amiodarone. Patient reverted to sinus rhythm. Admitted with acute non-Q wave [place], possible CHF exacerbation, atrial fibrillation rapid ventricular rate. IV heparin. IV amiodarone. IV Cardizem. Reverted to sinus rhythm. May 20: Overflow in the ER. No chest pain or shortness of breath. Sitting up. Cardiology is contemplating cardiac catheterization. IV heparin drip. May 21: reclining bed. No chest pain no shortness of breath. Cardiac catheterization currently postponed for one day. On IV heparin drip. May 22: Laying in bed. After lunch had some chest pressure. Be followed by cardiology. On IV heparin drip. May 23: Patient is afraid to eat solid food. Gives him chest discomfort. Ordered pured diet for him. Tired. IV heparin. 3 Liters nasal cannula. May 24: Eating about 50%. IV heparin. No chest pain. Awake. May 25: Patient underwent cardiac catheterization. Significant disease found. Formal report still not up. Plan this was patient to return to the experimental machining lab manager for further intervention and stent. Currently no chest pain and breathing stable. Review of systems: Was done for constitutional, cardiovascular, GI, pulmonary. relevant finding as above Active Medications Acetaminophen (Acetaminophen Tab 325 Mg Tab) 650 mg PO Q6HR PRN PRN Reason: Mild Pain or Fever > 100.5 Last Admin: 05/21/21 03:08 Dose: 650 mg Documented by: Amiodarone HCl (Amiodarone 200 Mg Tab) 200 mg PO BID [facility] Last Admin: 05/25/21 12:57 Dose: 200 mg Documented by: Aspirin (Aspirin 81 Mg) 81 mg PO DAILY [facility] Last Admin: 05/25/21 06:41 Dose: 81 mg Documented by: Atorvastatin Calcium (Atorvastatin 40 Mg Tab) 40 mg PO HS [facility] Last Admin: 05/24/21 21:06 Dose: 40 mg Documented by: Calcium Carbonate/Glycine (Calcium Carbonate 500 Mg Chewable) 1,000 mg PO Q4HR PRN PRN Reason: Dyspepsia Furosemide (Furosemide 40 Mg Tab) 40 mg PO BID@0900,1600 [facility] Last Admin: 05/25/21 12:57 Dose: 40 mg Documented by: Heparin Sodium (Porcine) (Heparin Sodium 1,000 Un/Ml (10ml Vl)) 0 unit IV PER PROTOCOL PRN; Protocol PRN Reason: Low PTT Ceftriaxone Sodium 1 gm/ (Sodium Chloride) 50 mls @ 100 mls/hr IVPB Q12HR [facility] Last Admin: 05/25/21 06:43 Dose: 100 mls/hr Documented by: Heparin Sodium/Sodium Chloride (25,000 unit/ Sodium Chloride) 250 mls @ 9.417 mls/hr IV .Q24H [facility]; Protocol Heparin Sodium (Porcine) 10, (000 unit/ Sodium Chloride) 1,001 mls @ 999 mls/hr IRRIGATION ONCE PRN PRN Reason: INTRA-OP Stop: 05/26/21 23:00 Heparin Sodium (Porcine) 2,500 (unit/ Sodium Chloride) 250.5 mls @ 250 mls/hr IRRIGATION ONCE PRN PRN Reason: INTRA-OP Stop: 05/26/21 23:00 Sodium Chloride 1,000 ml/ IV (Solution) 1,000 mls @ 235.413 mls/hr IV .Q4H15M ONE Stop: 05/26/21 04:14 Insulin Aspart (Insulin Aspart (Novolog) 100 Unit/Ml Vial) 0 unit SQ [facility]; Protocol Last Admin: 05/25/21 13:19 Dose: Not Given Documented by: Insulin Detemir (Insulin Detemir (Levemir) 100 Unit/Ml Syr) 8 unit SQ [facility] Last Admin: 05/24/21 21:06 Dose: 8 unit Documented by: Lactulose (Lactulose 20 Gm/30 Ml Cup) 20 gm PO DAILY PRN PRN Reason: Constipation Lorazepam (Lorazepam 0.5 Mg Tab) 0.5 mg PO Q6HR PRN PRN Reason: Anxiety Last Admin: 05/22/21 20:30 Dose: 0.5 mg Documented by: Melatonin (Melatonin 3 Mg Tablet) 3 mg PO HS PRN PRN Reason: Insomnia Metoprolol Tartrate (Metoprolol Tartrate 25 Mg Tab) 25 mg PO BID [facility] Last Admin: 05/25/21 12:57 Dose: 25 mg Documented by: Miscellaneous Information (Rx Info: Iv Contrast Was Given 1 Each Misc) 1 each MISCELLANE DAILY PRN PRN Reason: Per Protocol Stop: 05/27/21 12:01 Naloxone HCl (Naloxone 0.4 Mg/Ml 1 Ml Vial) 0.2 mg IV Q2M PRN PRN Reason: Opioid Reversal Nitroglycerin (Nitroglycerin Sl Tabs 0.4 Mg Tab) 0.4 mg SUBLINGUAL Q5M PRN PRN Reason: Chest Pain Ondansetron HCl (Ondansetron 4 Mg/2 Ml Vial) 4 mg IVP Q8HR PRN PRN Reason: Nausea And Vomiting Sodium Bicarbonate (Sodium Bicarbonate Tab 650 Mg Tab) 650 mg PO BID [facility] Last Admin: 05/25/21 06:40 Dose: 650 mg Documented by: Past medical history to include: CAD with PCI to RCA in 2001, hypertension, hyperlipidemia, diabetes type 2, paroxysmal atrial fibrillation on eliquis, mild to moderate aortic regurgitation, Social history: Lives alone. Was a daily from a. No alcohol or smoking. Family history: Reviewed, noncontributory to presentation Physical examination: VITAL SIGNS: 97.4, 62, 18, 150/72, 99% on room air GENERAL: Reclining bed, awake. Comfortable EYES: Pupils equal. Conjunctiva normal. HEENT: External appearance of nose and ears normal, oral cavity grossly normal. NECK: JVD not raised; masses not palpable. HEART: First and second heart sounds are normal; no edema. LUNGS: Respiratory rate normal; decreased breath sound. ABDOMEN: Soft, nontender, liver spleen not palpable, no masses palpable. PSYCH: Alert and oriented x3; mood and affect tired MUSCULOSKELETAL:No Clubbing/cyanosis;muscles-grossly intact. Evidence of OA NEUROLOGICAL: Cranial nerves grossly intact; no facial asymmetry, power and sensation grossly intact. INVESTIGATIONS, reviewed in the clinical context: May 25: White count 6.3 hemoglobin 14.3 platelets 249 potassium 4.2. 68 creatinine 2.03 May 24: White count 6.8 hemoglobin 14.2 platelets 16514.8. 62 creatinine 1.91 bicarb 16 May 23: Sodium 134 potassium 4.9 BUN 67 creatinine 2.16 May 22: Sodium 131 potassium 5.2. 65 creatinine 2.31 May 21: Potassium 4.6 BUN 62 creatinine 2.40 Renal ultrasound: Multiple right-sided renal cortical cyst. No hydronephrosis. No obstruction. 2-D echocardiogram: EF 40-45%. Lateral/posterior hypokinesis. May 20: White count 12.5 hemoglobin 14.6 which is 193 potassium 4.3 BUN 51 and creatinine 2.29. Telemetry: Personally reviewed by me as: Sinus rhythm LDL 104 White count 10.18 globin 16.1 platelets 192 sodium 136 potassium 4.5 BUN 44 creatinine 2.15 Troponin I 14.9, 37.8 ProBNP 8430 Coronavirus [PCR]: Not detected EKG tracing personally reviewed by me-atrial fibrillation with rapid ventricular rate. ST segment depression Chest x-ray film personally reviewed by me shows: Venous prominence with fluid in the fissure Previous labs: May 2019: BUN 31 and creatinine 1.79 Assessment and plan: - Acute non-Q wave [place]. Eliquis- held. IV heparin. Lopressor. Aspirin. Lopressor. On May 25, patient underwent cardiac cath by cardiology. Significant disease found. Per cardiology: Plan is to go back to go back on another session for intervention. -Post infarct angina,: Slow to respond. IV heparin. Other medications to continue. Follow with cardiology -CAD with a prior history of PCI to RCA in 2001 Aspirin. Beta bárbara. -IV heparin monitoring Follow PTT -Acute congestive heart failure from systolic dysfunction EF 40-45%. From underlying ischemic cardiomyopathy and from uncontrolled A. fib.: Better By mouth Lasix 40 mg twice a day -Paroxysmal atrial fibrillation with a rapid ventricular rate. Converted to sinus rhythm. IV Cardizem-discontinued. amiodarone. Lopressor 25 mg twice a day. IV heparin. -Diabetes mellitus type 2 on oral hypoglycemic, Hold oral hypoglycemic. Decrease Levemir 8 units. Accu-Cheks and sliding scale. -Essential hypertension Lopressor 25 mg twice a day -Hyperlipidemia Lipitor 40 mg daily at bedtime -Chronic kidney disease stage III suspect underlying diabetic nephropathy and hypertensive nephrosclerosis. Consult nephrology. -Acute kidney injury with worsening creatinine. Likely ATN from hypotension/cardiorenal syndrome: Better Aspirin. Beta bárbara. IV heparin. amiodarone. . Levemir. Lipitor. Cardiac catheterization today. Plan for another intervention and to 3 days.
--- NOTE | 2021-05-25 16:02 | CC ---
CARDIAC CATHETERIZATION REPORT INDICATION: Acute lgd-KY-kklbram-elevation NC. PROCEDURE NOTE: After obtaining informed consent, left heart catheterization and coronary angiogram were performed via the right radial artery using standard Brandie catheters. A size 3 and half right and left Brandie were used to engage the right and left coronary arteries and we obtained more images with a size 4.0 Brandie catheter. Left ventricular pressures were obtained using a pigtail. Catheters were exchanged in the ascending aorta under fluoroscopic guidance. The patient tolerated the procedure well without any obvious immediate complications. His contrast threshold was 90 and we used about 40 mL dye. The right radial artery access was obtained using modified Seldinger technique and the patient received 5 mg of verapamil, and 2000 units of heparin during the procedure as per protocol. The patient received moderate conscious sedation. Total sedation time was 26 minutes. FINDINGS: 1. Right coronary artery is a large dominant vessel that was previously stented in the proximal portion. Stent appears patent. There is a 60-70% stenosis in the mid RCA and a focal 70% stenosis involving the PDA. Artery appears calcified. 2. There are [id number] collaterals to the distal circumflex coronary artery. Circ appears occluded in its proximal portion. This may be the culprit vessel for the recent acute myocardial infarction. 3. The LAD is a small caliber vessel distally, appears diffusely diseased. There is a 70-80 percent stenosis in its midportion and a 70% stenosis proximally. ASSESSMENT: Severe three-vessel coronary artery disease in this 85-year-old patient with heavily calcified vessels with renal insufficiency. We are going to attempt angioplasty of circumflex coronary artery tomorrow. The patient understands that these are high risk angioplasties and there is a possibility that he might end up on dialysis. MMODL / IJN: [id number] /
[2021-05-25 16:38] LABS: Glucose,Whole Blood 109 mg/dL (75-99)
[2021-05-25 19:34] LABS: Glucose,Whole Blood 138 mg/dL (75-99)
[2021-05-25] MEDS: ATORVASTATIN 40 MG TAB PO SCH (20:51)
[2021-05-25] MEDS: INSULIN DETEMIR (LEVEMIR) 100 UNIT/ML SYR SQ SCH (20:51)
[2021-05-26] MEDS ORDERED: SODIUM CHLORIDE 0.9% 1,000 ML in EMPTY BAG 1 BAG IV ONE
[2021-05-26] MEDS: INSULIN ASPART (NovoLOG) 100 UNIT/ML VIAL SQ SCH ×4 (06:12→20:39)
[2021-05-26 06:13] LABS: Glucose,Whole Blood 68 mg/dL (75-99)
[2021-05-26 06:28] LABS: Glucose,Whole Blood 72 mg/dL (75-99)
[2021-05-26] MEDS ORDERED: HEPARIN SODIUM,PORCINE 2,500 UNIT in SODIUM CHLORIDE 0.9% 250 ML IRRIGATION PRN (07:00)
[2021-05-26] MEDS ORDERED: HEPARIN SODIUM,PORCINE 10,000 UNIT in SODIUM CHLORIDE 0.9% 1,000 ML IRRIGATION PRN (07:00)
[2021-05-26 08:07] LABS: Basophils % (A) 0 %; Eosinophils # (A) 0.1 k/uL (0-0.7); Eosinophils % (A) 2 %; HCT 42.4 % (39.0-53.0); HGB 14.1 gm/dL (13.0-17.5); Lymphocytes # (A) 0.6 k/uL (1.0-4.8); Lymphocytes % (A) 12 %; MCH 33.5 pg (25.0-35.0); MCHC 33.3 g/dL (31.0-37.0); MCV 100.5 fL (80.0-100.0); Mean Platelet Volume 8.1; Monocytes # (A) 0.4 k/uL (0-1.0); Monocytes % (A) 8 %; Neutrophils # (A) 4.1 k/uL (1.3-7.7); Neutrophils % (A) 77 %; Platelet Count 243 k/uL (150-450); RBC 4.21 m/uL (4.30-5.90); RDW 12.8 % (11.5-15.5); WBC 5.4 k/uL (3.8-10.6)
[2021-05-26] MEDS: ASPIRIN 81 MG PO SCH (08:20)
[2021-05-26] MEDS: SODIUM BICARBONATE TAB 650 MG TAB PO SCH ×2 (08:20→20:38)
[2021-05-26] MEDS: FUROSEMIDE 40 MG TAB PO SCH ×2 (08:20→17:36)
[2021-05-26] MEDS: AMIODARONE 200 MG TAB PO SCH ×2 (08:20→20:38)
[2021-05-26] MEDS: METOPROLOL TARTRATE 25 MG TAB PO SCH ×2 (08:20→20:38)
[2021-05-26 08:59] LABS: Calcium 8.4 mg/dL (8.4-10.2); Magnesium 2.2 mg/dL (1.6-2.3); Potassium 4.2 mmol/L (3.5-5.1)
[2021-05-26 11:55] LABS: Glucose,Whole Blood 119 mg/dL (75-99)
--- NOTE | 2021-05-26 12:17 | P.PN ---
Subjective Patient is seen in follow-up for acute kidney injury on chronic kidney disease. Renal function slightly better. Denies chest pain or shortness of breath. No vomiting or diarrhea. Blood pressure stable. Vital signs are stable. General: On nasal cannula. HEENT: Head exam is unremarkable. LUNGS: Breath sounds decreased. HEART: Rate and Rhythm are regular. ABDOMEN: Soft, no distention. EXTREMITITES: No edema. Objective - Vital Signs Vital signs: Vital Signs Temp 97.7 F 05/26/21 08:00 Pulse 55 L 05/26/21 08:00 Resp 18 05/26/21 08:00 BP 116/68 05/26/21 08:00 Pulse Ox 95 05/26/21 08:00 Intake & Output 05/25/21 05/26/21 05/26/21 18:59 06:59 18:59 Intake Total 500 0 353.888 Output Total 650 1725 Balance -150 -1725 353.888 Intake: IV 50 Intake, IV Titration 0 113.888 Amount Heparin Sod,Pork in 0.45% 0 113.888 NaCl 25,000 unit In 0.45 % NaCl 1 250ml.bag @ 12 UNITS/KG/HR 9.417 mls/hr IV .Q24H [facility] Rx#: [id number] Oral 450 240 Output: Urine 650 1725 Other: Voiding Method Urinal - Labs CBC & Chem 7: 05/26/21 07:31 05/26/21 07:31 Labs: Abnormal Lab Results - Last 24 Hours (Table) 05/25/21 05/25/21 05/25/21 Range/Units 13:08 16:36 19:33 RBC (4.30-5.90) m/uL MCV (80.0-100.0) fL Lymphocytes # (1.0-4.8) k/uL APTT (22.0-30.0) sec Sodium (137-145) mmol/L BUN (9-20) mg/dL Creatinine (0.66-1.25) mg/dL Glucose (74-99) mg/dL POC Glucose (mg/dL) 72 L 109 H 138 H (75-99) mg/dL 05/25/21 05/26/21 05/26/21 Range/Units 22:16 06:12 06:27 RBC (4.30-5.90) m/uL MCV (80.0-100.0) fL Lymphocytes # (1.0-4.8) k/uL APTT 41.2 H (22.0-30.0) sec Sodium (137-145) mmol/L BUN (9-20) mg/dL Creatinine (0.66-1.25) mg/dL Glucose (74-99) mg/dL POC Glucose (mg/dL) 68 L 72 L (75-99) mg/dL 05/26/21 05/26/21 05/26/21 Range/Units 07:31 07:31 07:31 RBC 4.21 L (4.30-5.90) m/uL MCV 100.5 H (80.0-100.0) fL Lymphocytes # 0.6 L (1.0-4.8) k/uL APTT 81.6 H (22.0-30.0) sec Sodium 133 L (137-145) mmol/L BUN 58 H (9-20) mg/dL Creatinine 1.96 H (0.66-1.25) mg/dL Glucose 113 H (74-99) mg/dL POC Glucose (mg/dL) (75-99) mg/dL 05/26/21 Range/Units 11:52 RBC (4.30-5.90) m/uL MCV (80.0-100.0) fL Lymphocytes # (1.0-4.8) k/uL APTT (22.0-30.0) sec Sodium (137-145) mmol/L BUN (9-20) mg/dL Creatinine (0.66-1.25) mg/dL Glucose (74-99) mg/dL POC Glucose (mg/dL) 119 H (75-99) mg/dL Assessment and Plan Plan: Assessment: 1. Acute kidney injury secondary to ATN secondary to cardiorenal syndrome. Renal function stable. Creatinine 1.96 today. No hydronephrosis noted on kidney ultrasound. 2. Coronary artery disease status post cardiac catheterization on 05/25/2021 which showed triple-vessel disease. Possible intervention tomorrow. 3. Acute on chronic systolic CHF with ejection fraction of 40-45%. 4. Chronic kidney disease stage IV secondary to nephrosclerosis with baseline creatinine in the range of 1.7-1.8. 5. Metabolic acidosis secondary to chronic kidney disease maintained on oral bicarb. Improved. 6. Diabetes mellitus. Plan: Maintain oral Lasix. Scheduled for cardiac catheterization with intervention tomorrow. Discussed with the patient risk of worsening renal failure, potentially requiring renal replacement therapy, post-IV contrast exposure. Start normal saline at 50 mL an hour at 6 AM tomorrow and Hep-Lock 6-8 hours post cardiac cath. Hold tomorrow morning's dose of Lasix. Avoid nephrotoxins. Monitor for contrast-induced acute kidney injury. Patient underwent cardiac catheterization on 05/25/2021.
--- NOTE | 2021-05-26 13:58 | P.PN ---
Subjective This is a pleasant 85-year-old male past medical history significant for coronary artery disease status post PCI to the RCA in 2001, hypertension, dy slipidemia, type 2 diabetes, paroxysmal atrial fibrillation on Eliquis, mild to moderate aortic regurgitation. He follows in the office with Dr. Garcia. We have been asked to see in consultation for atrial fibrillation with RVR and elevated troponin. Patient presented to the emergency department on 05/19/21 with complaints of shortness of breath, dyspnea on exertion and pain in his bilateral upper back, bilateral neck and bilateral shoulders for 3 days. He states his pain is aggravated by activity. He states that even doing his normal walking from his house to his garage he has significant shortness of breath. Patient was started on IV Cardizem and given 1L IV saline bolus EKG revealed atrial fibrillation with rapid ventricular response HR, 155, ST segment depression in leads V2 through V4. Troponin 40.9-->37.8-->47.0 Cardizem drip was stopped. Patient started on IV amiodarone 300mg bolus and IV amiodarone drip, IV heparin drip. Most recent echocardiogram 07/2020 revealed EF of 55%, mild to moderate aortic regurgitation. On 05/25/21, patient underwent cardiac catheterization with Dr. Garcia revealed patent stent in the RCA, 6070% stenosis in the mid RCA, 70% stenosis involving the PDA, [id number] collaterals the distal circumflex coronary artery, circumflex appears occluded in its proximal portion LAD, 7080% stenosis in the midportion 70% stenosis in the proximal LAD 05/26/21 Patient seen and examined on 3S cardiac stepdown unit. He denies any shortness of breath or chest pain. He ambulating in the room without difficulty. Plan for stent placement likely tomorrow Labs reviewed, WBC 5.4, hemoglobin 14.1, platelets 243, sodium 133, potassium 4.2, BUN 58, serum creatinine 1.9, magnesium 2.2 He is maintained on PO amiodarone 200mg BID, IV heparin, atorvastatin, aspirin, metoprolol tartrate 25 mg twice a day. He has been in and out of atrial fibrillation. Currently in sinus mechanism heart rates are controlled. Echocardiogram revealed the 4045 percent, lateral and posterior hypokinesis, mild mitral regurgitation, mild tricuspid regurgitation. PHYSICAL EXAMINATION Vitals reviewed CONSTITUTIONAL: No apparent distress. HEENT: Neck Supple. No JVD. CHEST EXAMINATION: Lungs are mild bilateral crackles to auscultation. No chest wall tenderness is noted on palpation or with deep breathing. HEART EXAMINATION: Regular rate and rhythm. S1, S2 heard. Systolic ejection murmur noted. ABDOMEN: Soft, nontender. Positive bowel sounds. EXTREMITIES: 2+ peripheral pulses, no lower extremity edema and no calf tenderness. NEUROLOGIC EXAMINATION: Patient is awake, alert and oriented x3. ASSESSMENT NSTEMI Paroxysmal atrial fibrillation with rapid ventricular response, on [facility] outpatient Ischemic cardiomyopathy with EF 40-45% Coronary artery disease status post PCI to the RCA in 2001 Acute on chronic kidney disease History of hypertension Hypotension Dyslipidemia Type 2 diabetes Mild to moderate aortic regurgitation PLAN -Continue PO amiodarone 200mg BID -Continue IV heparin -Aspirin, statin, metoprolol tartrate 25mg BID -Continue to hold patient's amlodipine -Nephrology consulted, due to kidney function, patient may require hemodialysis after cardiac catheterization. This was discussed with the patient. -Per nephrology hold AM dose of Lasix, and start 0.9 normal saline 50cc/hr in the morning prior to Cath -Plan for cardiac catheterization with stenting tomorrow with Dr. Xiong. -NPO at midnight -Further recommendations based on clinical course Nurse Practitioner note has been reviewed, I agree with a documented findings and plan of care. Patient was seen and examined. Objective - Vital Signs Vital signs: Vital Signs Temp 97.9 F 05/26/21 12:00 Pulse 54 L 05/26/21 12:00 Resp 18 05/26/21 12:00 BP 110/63 05/26/21 12:00 Pulse Ox 96 05/26/21 12:00 Intake & Output 05/25/21 05/26/21 05/26/21 18:59 06:59 18:59 Intake Total 500 0 353.888 Output Total 650 1725 Balance -150 -1725 353.888 Intake: IV 50 Intake, IV Titration 0 113.888 Amount Heparin Sod,Pork in 0.45% 0 113.888 NaCl 25,000 unit In 0.45 % NaCl 1 250ml.bag @ 12 UNITS/KG/HR 9.417 mls/hr IV .Q24H [facility] Rx#: [id number] Oral 450 240 Output: Urine 650 1725 Other: Voiding Method Urinal - Labs CBC & Chem 7: 05/26/21 07:31 05/26/21 07:31 Labs: Abnormal Lab Results - Last 24 Hours (Table) 05/25/21 05/25/21 05/25/21 Range/Units 16:36 19:33 22:16 RBC (4.30-5.90) m/uL MCV (80.0-100.0) fL Lymphocytes # (1.0-4.8) k/uL APTT 41.2 H (22.0-30.0) sec Sodium (137-145) mmol/L BUN (9-20) mg/dL Creatinine (0.66-1.25) mg/dL Glucose (74-99) mg/dL POC Glucose (mg/dL) 109 H 138 H (75-99) mg/dL 05/26/21 05/26/21 05/26/21 Range/Units 06:12 06:27 07:31 RBC (4.30-5.90) m/uL MCV (80.0-100.0) fL Lymphocytes # (1.0-4.8) k/uL APTT (22.0-30.0) sec Sodium 133 L (137-145) mmol/L BUN 58 H (9-20) mg/dL Creatinine 1.96 H (0.66-1.25) mg/dL Glucose 113 H (74-99) mg/dL POC Glucose (mg/dL) 68 L 72 L (75-99) mg/dL 05/26/21 05/26/21 05/26/21 Range/Units 07:31 07:31 11:52 RBC 4.21 L (4.30-5.90) m/uL MCV 100.5 H (80.0-100.0) fL Lymphocytes # 0.6 L (1.0-4.8) k/uL APTT 81.6 H (22.0-30.0) sec Sodium (137-145) mmol/L BUN (9-20) mg/dL Creatinine (0.66-1.25) mg/dL Glucose (74-99) mg/dL POC Glucose (mg/dL) 119 H (75-99) mg/dL
[2021-05-26 14:00] VITALS: BMI 24.8
[2021-05-26 16:38] LABS: Glucose,Whole Blood 122 mg/dL (75-99)
--- NOTE | 2021-05-26 18:15 | P.PN ---
Progress Note - Text Progress Note Date: 05/26/21 Chief Complaint: Short of breath This is a very pleasant 85-year-old patient of Dr. Hoa Lorenz. Chronic stable medical conditions include diabetes, hypertension, hyperlipidemia. Patient's previously had a CAD with PCI to RCA in 2001. Also paroxysmal atrial fibrillation on eliquis. He does follow with caustic liquor maker is Dr. Millie Kate. Patient now presents to 3 days of shortness of breath discomfort in the upper chest upper back. Unable to lay comfortable. Some palpitation. Tired rundown. Discomfort even presented dressed just the description he was just feeling off. Finally decided to come in. No exacerbating or relieving factors. Some orthopnea. No lower extremity swelling. In the ER found to be in atrial fibrillation rapid ventricular rate. Was placed and IV Cardizem. Earlier seen by cardiology. Given IV bolus of amiodarone. Patient reverted to sinus rhythm. Admitted with acute non-Q wave HI, possible CHF exacerbation, atrial fibrillation rapid ventricular rate. IV heparin. IV amiodarone. IV Cardizem. Reverted to sinus rhythm. May 20: Overflow in the ER. No chest pain or shortness of breath. Sitting up. Cardiology is contemplating cardiac catheterization. IV heparin drip. May 21: reclining bed. No chest pain no shortness of breath. Cardiac catheterization currently postponed for one day. On IV heparin drip. May 22: Laying in bed. After lunch had some chest pressure. Be followed by cardiology. On IV heparin drip. May 23: Patient is afraid to eat solid food. Gives him chest discomfort. Ordered pured diet for him. Tired. IV heparin. 3 Liters nasal cannula. May 24: Eating about 50%. IV heparin. No chest pain. Awake. May 25: Patient underwent cardiac catheterization. Significant disease found. Formal report still not up. Plan this was patient to return to the lab intern for further intervention and stent. Currently no chest pain and breathing stable. May 26: Laying in bed. Comfortable. No chest pain or shortness of breath. Plan is to going for cardiac catheterization for revascularization tomorrow. Review of systems: Was done for constitutional, cardiovascular, GI, pulmonary. relevant finding as above Active Medications Acetaminophen (Acetaminophen Tab 325 Mg Tab) 650 mg PO Q6HR PRN PRN Reason: Mild Pain or Fever > 100.5 Last Admin: 05/21/21 03:08 Dose: 650 mg Documented by: Amiodarone HCl (Amiodarone 200 Mg Tab) 200 mg PO BID [facility] Last Admin: 05/26/21 08:20 Dose: 200 mg Documented by: Aspirin (Aspirin 81 Mg) 81 mg PO DAILY [facility] Last Admin: 05/26/21 08:20 Dose: 81 mg Documented by: Atorvastatin Calcium (Atorvastatin 40 Mg Tab) 40 mg PO HS [facility] Last Admin: 05/25/21 20:51 Dose: 40 mg Documented by: Calcium Carbonate/Glycine (Calcium Carbonate 500 Mg Chewable) 1,000 mg PO Q4HR PRN PRN Reason: Dyspepsia Furosemide (Furosemide 40 Mg Tab) 40 mg PO BID@0900,1600 [facility] Last Admin: 05/26/21 17:36 Dose: 40 mg Documented by: Heparin Sodium (Porcine) (Heparin Sodium 1,000 Un/Ml (10ml Vl)) 0 unit IV PER PROTOCOL PRN; Protocol PRN Reason: Low PTT Ceftriaxone Sodium 1 gm/ (Sodium Chloride) 50 mls @ 100 mls/hr IVPB Q12HR [facility] Last Admin: 05/26/21 08:20 Dose: 100 mls/hr Documented by: Heparin Sodium/Sodium Chloride (25,000 unit/ Sodium Chloride) 250 mls @ 9.417 mls/hr IV .Q24H [facility]; Protocol Last Titration: 05/26/21 09:37 Dose: 12 units/kg/hr, 9.417 mls/hr Documented by: Heparin Sodium (Porcine) 10, (000 unit/ Sodium Chloride) 1,001 mls @ 999 mls/hr IRRIGATION ONCE PRN PRN Reason: INTRA-OP Stop: 05/27/21 23:00 Heparin Sodium (Porcine) 2,500 (unit/ Sodium Chloride) 250.5 mls @ 250 mls/hr IRRIGATION ONCE PRN PRN Reason: INTRA-OP Stop: 05/27/21 23:00 Sodium Chloride (Saline 0.9%) 1,000 mls @ 50 mls/hr IV .Q20H [facility] Insulin Aspart (Insulin Aspart (Novolog) 100 Unit/Ml Vial) 0 unit SQ ACHS [facility]; Protocol Last Admin: 05/26/21 17:36 Dose: Not Given Documented by: Insulin Detemir (Insulin Detemir (Levemir) 100 Unit/Ml Syr) 8 unit SQ [facility] Last Admin: 05/25/21 20:51 Dose: 8 unit Documented by: Lactulose (Lactulose 20 Gm/30 Ml Cup) 20 gm PO DAILY PRN PRN Reason: Constipation Lorazepam (Lorazepam 0.5 Mg Tab) 0.5 mg PO Q6HR PRN PRN Reason: Anxiety Last Admin: 05/22/21 20:30 Dose: 0.5 mg Documented by: Melatonin (Melatonin 3 Mg Tablet) 3 mg PO HS PRN PRN Reason: Insomnia Metoprolol Tartrate (Metoprolol Tartrate 25 Mg Tab) 25 mg PO BID [facility] Last Admin: 05/26/21 08:20 Dose: 25 mg Documented by: Miscellaneous Information (Rx Info: Iv Contrast Was Given 1 Each Misc) 1 each MISCELLANE DAILY PRN PRN Reason: Per Protocol Stop: 05/27/21 12:01 Naloxone HCl (Naloxone 0.4 Mg/Ml 1 Ml Vial) 0.2 mg IV Q2M PRN PRN Reason: Opioid Reversal Nitroglycerin (Nitroglycerin Sl Tabs 0.4 Mg Tab) 0.4 mg SUBLINGUAL Q5M PRN PRN Reason: Chest Pain Ondansetron HCl (Ondansetron 4 Mg/2 Ml Vial) 4 mg IVP Q8HR PRN PRN Reason: Nausea And Vomiting Sodium Bicarbonate (Sodium Bicarbonate Tab 650 Mg Tab) 650 mg PO BID [facility] Last Admin: 05/26/21 08:20 Dose: 650 mg Documented by: Past medical history to include: CAD with PCI to RCA in 2001, hypertension, hyperlipidemia, diabetes type 2, paroxysmal atrial fibrillation on eliquis, mild to moderate aortic regurgitation, Social history: Lives alone. Was a daily from a. No alcohol or smoking. Family history: Reviewed, noncontributory to presentation Physical examination: VITAL SIGNS: 97.8, 51, 18, 126/72, 96% on 2 L GENERAL: Reclining bed, awake. Comfortable EYES: Pupils equal. Conjunctiva normal. HEENT: External appearance of nose and ears normal, oral cavity grossly normal. NECK: JVD not raised; masses not palpable. HEART: First and second heart sounds are normal; no edema. LUNGS: Respiratory rate normal; decreased breath sound. ABDOMEN: Soft, nontender, liver spleen not palpable, no masses palpable. PSYCH: Alert and oriented x3; mood and affect tired MUSCULOSKELETAL:No Clubbing/cyanosis;muscles-grossly intact. Evidence of OA NEUROLOGICAL: Cranial nerves grossly intact; no facial asymmetry, power and sensation grossly intact. INVESTIGATIONS, reviewed in the clinical context: May 26: White count 5.4 hemoglobin 14.1 potassium 4.2 BUN 58 creatinine 1.96 May 25: White count 6.3 hemoglobin 14.3 platelets 249 potassium 4.2. 68 creatinine 2.03 May 24: White count 6.8 hemoglobin 14.2 platelets 86406.8. 62 creatinine 1.91 bicarb 16 May 23: Sodium 134 potassium 4.9 BUN 67 creatinine 2.16 May 22: Sodium 131 potassium 5.2. 65 creatinine 2.31 May 21: Potassium 4.6 BUN 62 creatinine 2.40 Renal ultrasound: Multiple right-sided renal cortical cyst. No hydronephrosis. No obstruction. 2-D echocardiogram: EF 40-45%. Lateral/posterior hypokinesis. May 20: White count 12.5 hemoglobin 14.6 which is 193 potassium 4.3 BUN 51 and creatinine 2.29. Telemetry: Personally reviewed by me as: Sinus rhythm LDL 104 White count 10.18 globin 16.1 platelets 192 sodium 136 potassium 4.5 BUN 44 creatinine 2.15 Troponin I 14.9, 37.8 ProBNP 8430 Coronavirus [PCR]: Not detected EKG tracing personally reviewed by me-atrial fibrillation with rapid ventricular rate. ST segment depression Chest x-ray film personally reviewed by me shows: Venous prominence with fluid in the fissure Previous labs: May 2019: BUN 31 and creatinine 1.79 Assessment and plan: - Acute non-Q wave HI. Significant CAD per cardiac cath. Especially proximal and midportion stenosis about 70%, of LAD Eliquis- held. IV heparin. Lopressor. Aspirin. Lopressor. May 25,- cardiac cath by / Significant disease found. 4 revascularization cardiac cath tomorrow -Post infarct angina,: Stable IV heparin. Other medications to continue. Follow with cardiology -CAD with a prior history of PCI to RCA in 2001 Aspirin. Beta bárbara. -IV heparin monitoring Follow PTT -Acute congestive heart failure from systolic dysfunction EF 40-45%. From underlying ischemic cardiomyopathy and from uncontrolled A. fib.: Better By mouth Lasix 40 mg twice a day. Hold prior to cardiac cath -Paroxysmal atrial fibrillation with a rapid ventricular rate. Converted to sinus rhythm. IV Cardizem-discontinued. amiodarone. Lopressor 25 mg twice a day. IV heparin. -Diabetes mellitus type 2 on oral hypoglycemic, Hold oral hypoglycemic. Decrease Levemir 8 units. Accu-Cheks and sliding scale. -Essential hypertension Lopressor 25 mg twice a day -Hyperlipidemia Lipitor 40 mg daily at bedtime -Chronic kidney disease stage III suspect underlying diabetic nephropathy and hypertensive nephrosclerosis. Consult nephrology. -Acute kidney injury with worsening creatinine. Likely ATN from h ypotension/cardiorenal syndrome: Better Aspirin. Beta bárbara. IV heparin. amiodarone. . Levemir. Lipitor. Plan for repeat cardiac catheterization 4 revascularization tomorrow. Hold morning dose of Lasix. Discussed with patient.
[2021-05-26 20:35] LABS: Glucose,Whole Blood 134 mg/dL (75-99)
[2021-05-26] MEDS: ATORVASTATIN 40 MG TAB PO SCH (20:38)
[2021-05-26] MEDS: INSULIN DETEMIR (LEVEMIR) 100 UNIT/ML SYR SQ SCH (20:47)
[2021-05-26] MEDS: HEPARIN SOD,PORK IN 0.45% NACL 25,000 UNIT in 0.45% NACL 1 250ML.BAG IV SCH (23:36)
[2021-05-27] MEDS ORDERED: SODIUM CHLORIDE 0.9% 1,000 ML in EMPTY BAG 1 BAG IV ONE
[2021-05-27] MEDS: AMIODARONE 200 MG TAB PO SCH ×2 (06:00→20:27)
[2021-05-27] MEDS: ASPIRIN 81 MG PO SCH (06:00)
[2021-05-27] MEDS: SODIUM BICARBONATE TAB 650 MG TAB PO SCH ×2 (06:01→20:27)
[2021-05-27] MEDS: SODIUM CHLORIDE 0.9% 1,000 ML IV SCH (06:01)
[2021-05-27] MEDS: METOPROLOL TARTRATE 25 MG TAB PO SCH (06:01)
[2021-05-27 06:05] LABS: Glucose,Whole Blood 85 mg/dL (75-99)
[2021-05-27] MEDS: INSULIN ASPART (NovoLOG) 100 UNIT/ML VIAL SQ SCH ×4 (06:05→20:32)
[2021-05-27] MEDS ORDERED: HEPARIN SODIUM,PORCINE 2,500 UNIT in SODIUM CHLORIDE 0.9% 250 ML IRRIGATION PRN (07:00)
[2021-05-27] MEDS ORDERED: HEPARIN SODIUM,PORCINE 10,000 UNIT in SODIUM CHLORIDE 0.9% 1,000 ML IRRIGATION PRN (07:00)
[2021-05-27 09:19] LABS: Calcium 8.5 mg/dL (8.4-10.2); Magnesium 2.2 mg/dL (1.6-2.3)
[2021-05-27 11:48] LABS: Glucose,Whole Blood 88 mg/dL (75-99)
--- NOTE | 2021-05-27 12:12 | P.PN ---
Subjective Patient is seen in follow-up for acute kidney injury on chronic kidney disease. Renal function stable. Denies chest pain or shortness of breath. No vomiting or diarrhea. Blood pressure stable. Scheduled for a cardiac cath today. Vital signs are stable. General: On nasal cannula. HEENT: Head exam is unremarkable. LUNGS: Breath sounds decreased. HEART: Rate and Rhythm are regular. ABDOMEN: Soft, no distention. EXTREMITITES: No edema. Objective - Vital Signs Vital signs: Vital Signs Temp 97.1 F L 05/27/21 08:18 Pulse 42 L 05/27/21 08:18 Resp 18 05/27/21 08:18 BP 96/53 05/27/21 08:18 Pulse Ox 97 05/27/21 08:18 Intake & Output 05/26/21 05/27/21 05/27/21 18:59 06:59 18:59 Intake Total 589.888 231.681 Output Total 1501 1250 Balance -911.112 -1018.319 Weight 78.471 kg Intake: Intake, IV Titration 113.888 231.681 Amount Heparin Sod,Pork in 0.45% 113.888 131.681 NaCl 25,000 unit In 0.45 % NaCl 1 250ml.bag @ 12 UNITS/KG/HR 9.417 mls/hr IV .Q24H TIM Rx#: [id number] cefTRIAXone 1 gm In 100 Sodium Chloride 0.9% 50 ml @ 100 mls/hr IVPB Q12HR TIM Rx#:[id number] Oral 476 Output: Urine 1501 1250 Other: Voiding Method Urinal # Voids 1 - Labs CBC & Chem 7: 05/26/21 07:31 05/27/21 08:06 Labs: Abnormal Lab Results - Last 24 Hours (Table) 05/26/21 05/26/21 05/26/21 Range/Units 15:54 16:36 20:33 APTT 65.2 H (22.0-30.0) sec Sodium (137-145) mmol/L BUN (9-20) mg/dL Creatinine (0.66-1.25) mg/dL POC Glucose (mg/dL) 122 H 134 H (75-99) mg/dL 05/27/21 05/27/21 Range/Units 08:06 08:06 APTT 75.6 H (22.0-30.0) sec Sodium 134 L (137-145) mmol/L BUN 56 H (9-20) mg/dL Creatinine 1.99 H (0.66-1.25) mg/dL POC Glucose (mg/dL) (75-99) mg/dL Assessment and Plan Plan: Assessment: 1. Acute kidney injury secondary to ATN secondary to cardiorenal syndrome. Renal function stable. Creatinine 1.99 today. No hydronephrosis noted on kidney ultrasound. 2. Coronary artery disease status post cardiac catheterization on 05/25/2021 which showed triple-vessel disease. Plan for intervention today. 3. Acute on chronic systolic CHF with ejection fraction of 40-45%. 4. Chronic kidney disease stage IV secondary to nephrosclerosis with baseline creatinine in the range of 1.7-1.8. 5. Metabolic acidosis secondary to chronic kidney disease maintained on oral bicarb. Improved. 6. Diabetes mellitus. 7. A. fib. On oral amiodarone and metoprolol. Cardiology following. Plan: Maintain oral Lasix - morning dose was held. He's receiving IV fluids - Hep-Lock 8 hours post cardiac cath. Scheduled for cardiac catheterization with intervention today. Discussed with the patient risk of worsening renal failure, potentially requiring renal replacement therapy, post-IV contrast exposure. Avoid nephrotoxins. Monitor for contrast-induced acute kidney injury. Patient underwent cardiac catheterization on 05/25/2021.
--- NOTE | 2021-05-27 13:58 | P.PN ---
Subjective This is a pleasant 85-year-old male past medical history significant for coronary artery disease status post PCI to the RCA in 2001, hypertension, dy slipidemia, type 2 diabetes, paroxysmal atrial fibrillation on Eliquis, mild to moderate aortic regurgitation. He follows in the office with Dr. Garcia. We have been asked to see in consultation for atrial fibrillation with RVR and elevated troponin. Patient presented to the emergency department on 05/19/21 with complaints of shortness of breath, dyspnea on exertion and pain in his bilateral upper back, bilateral neck and bilateral shoulders for 3 days. He states his pain is aggravated by activity. He states that even doing his normal walking from his house to his garage he has significant shortness of breath. Patient was started on IV Cardizem and given 1L IV saline bolus EKG revealed atrial fibrillation with rapid ventricular response HR, 155, ST segment depression in leads V2 through V4. Troponin 40.9-->37.8-->47.0 Cardizem drip was stopped. Patient started on IV amiodarone 300mg bolus and IV amiodarone drip, IV heparin drip. Most recent echocardiogram 07/2020 revealed EF of 55%, mild to moderate aortic regurgitation. On 05/25/21, patient underwent cardiac catheterization with Dr. Garcia revealed patent stent in the RCA, 6070% stenosis in the mid RCA, 70% stenosis involving the PDA, [id number] collaterals the distal circumflex coronary artery, circumflex appears occluded in its proximal portion LAD, 7080% stenosis in the midportion 70% stenosis in the proximal LAD 05/27/21 Patient seen and examined on 3S cardiac stepdown unit. He denies any shortness of breath or chest pain. He ambulating in the room without difficulty. Plan for stent placement today with Dr. Xiong. Labs reviewed, sodium 134, potassium 4.0, BUN 56, serum creatinine 1.9, magnesium 2.2 He is maintained on PO amiodarone 200mg BID, IV heparin, atorvastatin, aspirin, metoprolol tartrate 25 mg twice a day. Telemetry- Patient in sinus mechanism, is bradycardic HR 40s-50s Echocardiogram revealed the 4045%, lateral and posterior hypokinesis, mild mitral regurgitation, mild tricuspid regurgitation. PHYSICAL EXAMINATION Vitals reviewed CONSTITUTIONAL: No apparent distress. HEENT: Neck Supple. No JVD. CHEST EXAMINATION: Lungs are mild bilateral crackles to auscultation. No chest wall tenderness is noted on palpation or with deep breathing. HEART EXAMINATION: Regular rate and rhythm. S1, S2 heard. Systolic ejection murmur noted. ABDOMEN: Soft, nontender. Positive bowel sounds. EXTREMITIES: 2+ peripheral pulses, no lower extremity edema and no calf tender ness. NEUROLOGIC EXAMINATION: Patient is awake, alert and oriented x3. ASSESSMENT NSTEMI Paroxysmal atrial fibrillation with rapid ventricular response, on [facility] outpatient Ischemic cardiomyopathy with EF 40-45% Coronary artery disease status post PCI to the RCA in 2001 Acute on chronic kidney disease History of hypertension Hypotension Dyslipidemia Type 2 diabetes Mild to moderate aortic regurgitation PLAN -Decrease metoprolol tartrate 12.5mg BID -Continue PO amiodarone 200mg BID (started 05/20), will decrease to 200mg Daily tomorrow -Continue IV heparin -Aspirin, statin -Continue to hold patient's amlodipine -Nephrology consulted, due to kidney function, patient may require hemodialysis after cardiac catheterization. This was discussed with the patient. -Plan for cardiac catheterization with stenting today with Dr. Xiong. -Further recommendations based on clinical course Nurse Practitioner note has been reviewed, I agree with a documented findings and plan of care. Patient was seen and examined. Objective - Vital Signs Vital signs: Vital Signs Temp 97.1 F L 05/27/21 08:18 Pulse 51 L 05/27/21 12:00 Resp 18 05/27/21 12:00 BP 110/63 05/27/21 12:00 Pulse Ox 98 05/27/21 12:00 Intake & Output 05/26/21 05/27/21 05/27/21 18:59 06:59 18:59 Intake Total 589.888 231.681 Output Total 1501 1250 150 Balance -911.112 -1018.319 -150 Weight 78.471 kg Intake: Intake, IV Titration 113.888 231.681 Amount Heparin Sod,Pork in 0.45% 113.888 131.681 NaCl 25,000 unit In 0.45 % NaCl 1 250ml.bag @ 12 UNITS/KG/HR 9.417 mls/hr IV .Q24H TIM Rx#: [id number] cefTRIAXone 1 gm In 100 Sodium Chloride 0.9% 50 ml @ 100 mls/hr IVPB Q12HR TIM Rx#:[id number] Oral 476 Output: Urine 1501 1250 150 Other: Voiding Method Urinal Urinal # Voids 1 - Labs CBC & Chem 7: 05/26/21 07:31 05/27/21 08:06 Labs: Abnormal Lab Results - Last 24 Hours (Table) 05/26/21 05/26/21 05/26/21 Range/Units 15:54 16:36 20:33 APTT 65.2 H (22.0-30.0) sec Sodium (137-145) mmol/L BUN (9-20) mg/dL Creatinine (0.66-1.25) mg/dL POC Glucose (mg/dL) 122 H 134 H (75-99) mg/dL 05/27/21 05/27/21 Range/Units 08:06 08:06 APTT 75.6 H (22.0-30.0) sec Sodium 134 L (137-145) mmol/L BUN 56 H (9-20) mg/dL Creatinine 1.99 H (0.66-1.25) mg/dL POC Glucose (mg/dL) (75-99) mg/dL
[2021-05-27 16:25] LABS: Glucose,Whole Blood 113 mg/dL (75-99)
[2021-05-27] MEDS: FUROSEMIDE 40 MG TAB PO SCH (16:30)
--- NOTE | 2021-05-27 19:38 | P.PN ---
Progress Note - Text Progress Note Date: 05/27/21 Chief Complaint: Short of breath This is a very pleasant 85-year-old patient of Dr. Hoa Lorenz. Chronic stable medical conditions include diabetes, hypertension, hyperlipidemia. Patient's previously had a CAD with PCI to RCA in 2001. Also paroxysmal atrial fibrillation on eliquis. He does follow with cycle repairer is Dr. Millie Kate. Patient now presents to 3 days of shortness of breath discomfort in the upper chest upper back. Unable to lay comfortable. Some palpitation. Tired rundown. Discomfort even presented dressed just the description he was just feeling off. Finally decided to come in. No exacerbating or relieving factors. Some orthopnea. No lower extremity swelling. In the ER found to be in atrial fibrillation rapid ventricular rate. Was placed and IV Cardizem. Earlier seen by cardiology. Given IV bolus of amiodarone. Patient reverted to sinus rhythm. Admitted with acute non-Q wave AL, possible CHF exacerbation, atrial fibrillation rapid ventricular rate. IV heparin. IV amiodarone. IV Cardizem. Reverted to sinus rhythm. May 20: Overflow in the ER. No chest pain or shortness of breath. Sitting up. Cardiology is contemplating cardiac catheterization. IV heparin drip. May 21: reclining bed. No chest pain no shortness of breath. Cardiac catheterization currently postponed for one day. On IV heparin drip. May 22: Laying in bed. After lunch had some chest pressure. Be followed by cardiology. On IV heparin drip. May 23: Patient is afraid to eat solid food. Gives him chest discomfort. Ordered pured diet for him. Tired. IV heparin. 3 Liters nasal cannula. May 24: Eating about 50%. IV heparin. No chest pain. Awake. May 25: Patient underwent cardiac catheterization. Significant disease found. Formal report still not up. Plan this was patient to return to the grinding and polishing laborer for further intervention and stent. Currently no chest pain and breathing stable. May 26: Laying in bed. Comfortable. No chest pain or shortness of breath. Plan is to going for cardiac catheterization for revascularization tomorrow. May 27: Patient was seen this morning. Pending cardiac catheterization. No chest pain or shortness of breath. Nothing by mouth. Review of systems: Was done for constitutional, cardiovascular, GI, pulmonary. relevant finding as above Active Medications Acetaminophen (Acetaminophen Tab 325 Mg Tab) 650 mg PO Q6HR PRN PRN Reason: Mild Pain or Fever > 100.5 Last Admin: 05/21/21 03:08 Dose: 650 mg Documented by: Amiodarone HCl (Amiodarone 200 Mg Tab) 200 mg PO BID [facility] Last Admin: 05/27/21 06:00 Dose: 200 mg Documented by: Aspirin (Aspirin 81 Mg) 81 mg PO DAILY [facility] Last Admin: 05/27/21 06:00 Dose: 81 mg Documented by: Atorvastatin Calcium (Atorvastatin 40 Mg Tab) 40 mg PO HS [facility] Last Admin: 05/26/21 20:38 Dose: 40 mg Documented by: Calcium Carbonate/Glycine (Calcium Carbonate 500 Mg Chewable) 1,000 mg PO Q4HR PRN PRN Reason: Dyspepsia Furosemide (Furosemide 40 Mg Tab) 40 mg PO BID@0900,1600 [facility] Last Admin: 05/27/21 16:30 Dose: 40 mg Documented by: Heparin Sodium (Porcine) (Heparin Sodium 1,000 Un/Ml (10ml Vl)) 0 unit IV PER PROTOCOL PRN; Protocol PRN Reason: Low PTT Ceftriaxone Sodium 1 gm/ (Sodium Chloride) 50 mls @ 100 mls/hr IVPB Q12HR [facility] Last Admin: 05/27/21 11:37 Dose: 100 mls/hr Documented by: Heparin Sodium/Sodium Chloride (25,000 unit/ Sodium Chloride) 250 mls @ 9.417 mls/hr IV .Q24H [facility]; Protocol Last Admin: 05/26/21 23:36 Dose: 12 units/kg/hr, 9.417 mls/hr Documented by: Heparin Sodium (Porcine) 10, (000 unit/ Sodium Chloride) 1,001 mls @ 999 mls/hr IRRIGATION ONCE PRN PRN Reason: INTRA-OP Stop: 05/27/21 23:00 Heparin Sodium (Porcine) 2,500 (unit/ Sodium Chloride) 250.5 mls @ 250 mls/hr IRRIGATION ONCE PRN PRN Reason: INTRA-OP Stop: 05/27/21 23:00 Sodium Chloride (Saline 0.9%) 1,000 mls @ 50 mls/hr IV .Q20H [facility] Last Admin: 05/27/21 06:01 Dose: 50 mls/hr Documented by: Insulin Aspart (Insulin Aspart (Novolog) 100 Unit/Ml Vial) 0 unit SQ ACHS [facility]; Protocol Last Admin: 05/27/21 16:29 Dose: Not Given Documented by: Insulin Detemir (Insulin Detemir (Levemir) 100 Unit/Ml Syr) 8 unit SQ HS [facility] Last Admin: 05/26/21 20:47 Dose: 8 unit Documented by: Lactulose (Lactulose 20 Gm/30 Ml Cup) 20 gm PO DAILY PRN PRN Reason: Constipation Lorazepam (Lorazepam 0.5 Mg Tab) 0.5 mg PO Q6HR PRN PRN Reason: Anxiety Last Admin: 05/22/21 20:30 Dose: 0.5 mg Documented by: Melatonin (Melatonin 3 Mg Tablet) 3 mg PO HS PRN PRN Reason: Insomnia Metoprolol Tartrate (Metoprolol Tartrate 12.5 Mg Tab) 12.5 mg PO BID [facility] Naloxone HCl (Naloxone 0.4 Mg/Ml 1 Ml Vial) 0.2 mg IV Q2M PRN PRN Reason: Opioid Reversal Nitroglycerin (Nitroglycerin Sl Tabs 0.4 Mg Tab) 0.4 mg SUBLINGUAL Q5M PRN PRN Reason: Chest Pain Ondansetron HCl (Ondansetron 4 Mg/2 Ml Vial) 4 mg IVP Q8HR PRN PRN Reason: Nausea And Vomiting Sodium Bicarbonate (Sodium Bicarbonate Tab 650 Mg Tab) 650 mg PO BID [facility] Last Admin: 05/27/21 06:01 Dose: 650 mg Documented by: Past medical history to include: CAD with PCI to RCA in 2001, hypertension, hyperlipidemia, diabetes type 2, paroxysmal atrial fibrillation on eliquis, mild to moderate aortic regurgitation, Social history: Lives alone. Was a daily from a. No alcohol or smoking. Family history: Reviewed, noncontributory to presentation Physical examination: VITAL SIGNS: 37.1, 42, 18, 96/53, 97% on room air GENERAL: Reclining bed, awake. Comfortable EYES: Pupils equal. Conjunctiva normal. HEENT: External appearance of nose and ears normal, oral cavity grossly normal. NECK: JVD not raised; masses not palpable. HEART: First and second heart sounds are normal; no edema. LUNGS: Respiratory rate normal; decreased breath sound. ABDOMEN: Soft, nontender, liver spleen not palpable, no masses palpable. PSYCH: Alert and oriented x3; mood and affect tired MUSCULOSKELETAL:No Clubbing/cyanosis;muscles-grossly intact. Evidence of OA NEUROLOGICAL: Cranial nerves grossly intact; no facial asymmetry, power and sensation grossly intact. INVESTIGATIONS, reviewed in the clinical context: May 27: Potassium 4 creatinine 1.99 May 21: Potassium 4.6 BUN 62 creatinine 2.40 Renal ultrasound: Multiple right-sided renal cortical cyst. No hydronephrosis. No obstruction. 2-D echocardiogram: EF 40-45%. Lateral/posterior hypokinesis. May 20: White count 12.5 hemoglobin 14.6 which is 193 potassium 4.3 BUN 51 and creatinine 2.29. Telemetry: Personally reviewed by me as: Sinus rhythm LDL 104 White count 10.18 globin 16.1 platelets 192 sodium 136 potassium 4.5 BUN 44 creatinine 2.15 Troponin I 14.9, 37.8 ProBNP 8430 Coronavirus [PCR]: Not detected EKG tracing personally reviewed by me-atrial fibrillation with rapid ventricular rate. ST segment depression Chest x-ray film personally reviewed by me shows: Venous prominence with fluid in the fissure Previous labs: May 2019: BUN 31 and creatinine 1.79 Assessment and plan: - Acute non-Q wave AL. Significant CAD per cardiac cath. Especially proximal and midportion stenosis about 70%, of LAD Eliquis- held. IV heparin. Lopressor. Aspirin. Lopressor. May 25,- cardiac cath by / Significant disease found. Pending cardiac catheterization for revascularization. -Post infarct angina,: Stable IV heparin. Other medications to continue. Follow with cardiology -CAD with a prior history of PCI to RCA in 2001 Aspirin. Beta bárbara. -IV heparin monitoring Follow PTT -Acute congestive heart failure from systolic dysfunction EF 40-45%. From underlying ischemic cardiomyopathy and from uncontrolled A. fib.: Better By mouth Lasix 40 mg twice a day. Hold prior to cardiac cath -Paroxysmal atrial fibrillation with a rapid ventricular rate. Converted to sinus rhythm. IV Cardizem-discontinued. amiodarone. Lopressor 25 mg twice a day. IV heparin. -Diabetes mellitus type 2 on oral hypoglycemic, Hold oral hypoglycemic. Decrease Levemir 8 units. Accu-Cheks and sliding scale. -Essential hypertension Lopressor 25 mg twice a day -Hyperlipidemia Lipitor 40 mg daily at bedtime -Chronic kidney disease stage III suspect underlying diabetic nephropathy and hypertensive nephrosclerosis. Follow nephrology. -Acute kidney injury Likely ATN from hypotension/cardiorenal syndrome: Better Creatinine 2.4 now down to 1.99 Aspirin. Beta bárbara. IV heparin. amiodarone. . Levemir. Lipitor. Pending cardiac catheterization 4 revascularization Discussed with patient.
[2021-05-27] MEDS: ATORVASTATIN 40 MG TAB PO SCH (20:27)
[2021-05-27 20:28] LABS: Glucose,Whole Blood 177 mg/dL (75-99)
[2021-05-27] MEDS: METOPROLOL TARTRATE 12.5 MG TAB PO SCH (20:28)
[2021-05-27] MEDS: INSULIN DETEMIR (LEVEMIR) 100 UNIT/ML SYR SQ SCH (20:32)
[2021-05-28] MEDS: SODIUM CHLORIDE 0.9% 1,000 ML IV SCH (01:26)
[2021-05-28 05:54] LABS: Glucose,Whole Blood 96 mg/dL (75-99)
[2021-05-28] MEDS: INSULIN ASPART (NovoLOG) 100 UNIT/ML VIAL SQ SCH ×4 (06:31→20:11)
[2021-05-28] MEDS: FUROSEMIDE 40 MG TAB PO SCH ×2 (08:56→17:13)
[2021-05-28] MEDS: AMIODARONE 200 MG TAB PO SCH (08:57)
[2021-05-28] MEDS: ASPIRIN 81 MG PO SCH (08:57)
[2021-05-28] MEDS: METOPROLOL TARTRATE 12.5 MG TAB PO SCH ×2 (08:57→20:11)
[2021-05-28] MEDS: SODIUM BICARBONATE TAB 650 MG TAB PO SCH ×2 (08:57→20:11)
--- NOTE | 2021-05-28 09:52 | P.PN ---
Subjective Patient is seen in follow-up for acute kidney injury on chronic kidney disease. Renal function stable. Denies chest pain or shortness of breath. No vomiting or diarrhea. Blood pressure stable. Vital signs are stable. General: On nasal cannula. HEENT: Head exam is unremarkable. LUNGS: Breath sounds decreased. HEART: Rate and Rhythm are regular. ABDOMEN: Soft, no distention. EXTREMITITES: No edema. Objective - Vital Signs Vital signs: Vital Signs Temp 97.3 F L 05/28/21 08:45 Pulse 53 L 05/28/21 08:45 Resp 18 05/28/21 08:45 BP 112/66 05/28/21 08:45 Pulse Ox 96 05/28/21 08:45 Intake & Output 05/27/21 05/28/21 05/28/21 18:59 06:59 18:59 Intake Total 320 180 Output Total 150 400 200 Balance -150 -80 -20 Intake: Oral 320 180 Output: Urine 150 400 200 Other: Voiding Method Urinal Urinal - Labs CBC & Chem 7: 05/26/21 07:31 05/27/21 08:06 Labs: Abnormal Lab Results - Last 24 Hours (Table) 05/27/21 05/27/21 Range/Units 16:23 20:25 POC Glucose (mg/dL) 113 H 177 H (75-99) mg/dL Assessment and Plan Plan: Assessment: 1. Acute kidney injury secondary to ATN secondary to cardiorenal syndrome. Renal function stable. Creatinine 1.99 yesterday. No hydronephrosis noted on kidney ultrasound. 2. Coronary artery disease status post cardiac catheterization on 05/25/2021 which showed triple-vessel disease. Medical management for now. 3. Acute on chronic systolic CHF with ejection fraction of 40-45%. 4. Chronic kidney disease stage IV secondary to nephrosclerosis with baseline creatinine in the range of 1.7-1.8. 5. Metabolic acidosis secondary to chronic kidney disease maintained on oral bicarb. Improved. 6. Diabetes mellitus. 7. A. fib. On oral amiodarone and metoprolol. Cardiology following. Plan: Maintain oral Lasix. Avoid nephrotoxins. Monitor for contrast-induced acute kidney injury. Patient underwent cardiac catheterization on 05/25/2021. Morning labs pending.
[2021-05-28 11:35] LABS: Glucose,Whole Blood 119 mg/dL (75-99)
[2021-05-28] MEDS: APIXABAN 5 MG TAB PO SCH ×2 (11:44→20:11)
[2021-05-28 11:48] LABS: Calcium 8.8 mg/dL (8.4-10.2); Magnesium 2.2 mg/dL (1.6-2.3); Potassium 4.2 mmol/L (3.5-5.1)
--- NOTE | 2021-05-28 13:17 | P.PN ---
Subjective This is a pleasant 85-year-old male past medical history significant for coronary artery disease status post PCI to the RCA in 2001, hypertension, dy slipidemia, type 2 diabetes, paroxysmal atrial fibrillation on Eliquis, mild to moderate aortic regurgitation. He follows in the office with Dr. Garcia. We have been asked to see in consultation for atrial fibrillation with RVR and elevated troponin. Patient presented to the emergency department on 05/19/21 with complaints of shortness of breath, dyspnea on exertion and pain in his bilateral upper back, bilateral neck and bilateral shoulders for 3 days. He states his pain is aggravated by activity. He states that even doing his normal walking from his house to his garage he has significant shortness of breath. Patient was started on IV Cardizem and given 1L IV saline bolus EKG revealed atrial fibrillation with rapid ventricular response HR, 155, ST segment depression in leads V2 through V4. Troponin 40.9-->37.8-->47.0 Cardizem drip was stopped. Patient started on IV amiodarone 300mg bolus and IV amiodarone drip, IV heparin drip. Most recent echocardiogram 07/2020 revealed EF of 55%, mild to moderate aortic regurgitation. On 05/25/21, patient underwent cardiac catheterization with Dr. Garcia revealed patent stent in the RCA, 6070% stenosis in the mid RCA, 70% stenosis involving the PDA, [id number] collaterals the distal circumflex coronary artery, circumflex appears occluded in its proximal portion LAD, 7080% stenosis in the midportion 70% stenosis in the proximal LAD 05/28/2021 Patient seen and examined on 3S cardiac stepdown unit. He denies any shortness of breath or chest pain. He ambulating in the room without difficulty. Stent placement was not completed on 05/27/21 and it was recommended per Dr. Xiong and Dr. Garcia to manage with medical therapy. He is tolerating medical therapy well. He has no complaints this morning. Labs reviewed, sodium 132, potassium 4.2, BUN 53, serum creatinine 1.9, magnesium 2.2 He is maintained on PO amiodarone 200mg BID, IV heparin, atorvastatin, aspirin, metoprolol tartrate 25 mg twice a day. Telemetry- Patient in sinus mechanism, is bradycardic HR 50s Echocardiogram revealed the 4045%, lateral and posterior hypokinesis, mild mitral regurgitation, mild tricuspid regurgitation. PHYSICAL EXAMINATION Vitals reviewed CONSTITUTIONAL: No apparent distress. HEENT: Neck Supple. No JVD. CHEST EXAMINATION: Lungs are mild bilateral crackles to auscultation. No chest wall tenderness is noted on palpation or with deep breathing. HEART EXAMINATION: Regular rate and rhythm. S1, S2 heard. Systolic ejection murmur noted. ABDOMEN: Soft, nontender. Positive bowel sounds. EXTREMITIES: 2+ peripheral pulses, no lower extremity edema and no calf tenderness. NEUROLOGIC EXAMINATION: Patient is awake, alert and oriented x3. ASSESSMENT NSTEMI Paroxysmal atrial fibrillation with rapid ventricular response, on Eliquis outpatient Ischemic cardiomyopathy with EF 40-45% Coronary artery disease status post PCI to the RCA in 2001 Acute on chronic kidney disease History of hypertension Hypotension Dyslipidemia Type 2 diabetes Mild to moderate aortic regurgitation PLAN -Patient's cardiac catheterization reviewed by Dr. Xiong and Dr. Garcia, No plans for stent placement at this time. We will continue medical management -Continue metoprolol tartrate 12.5mg BID, amiodarone 200mg daily, Lasix PO 40mg BID -Will stop IV heparin, and restart Eliquis -Aspirin, statin -From a cardiology perspective, patient is stable for discharge home. Follow up with Dr. Garcia 06/03/21 at 3:30PM at [place] location Nurse Practitioner note has been reviewed, I agree with a documented findings and plan of care. Patient was seen and examined. Objective - Vital Signs Vital signs: Vital Signs Temp 97.3 F L 05/28/21 08:45 Pulse 53 L 05/28/21 08:45 Resp 18 05/28/21 08:45 BP 112/66 05/28/21 08:45 Pulse Ox 96 05/28/21 08:45 Intake & Output 05/27/21 05/28/21 05/28/21 18:59 06:59 18:59 Intake Total 320 180 Output Total 150 400 200 Balance -150 -80 -20 Intake: Oral 320 180 Output: Urine 150 400 200 Other: Voiding Method Urinal Urinal - Labs CBC & Chem 7: 05/26/21 07:31 05/28/21 10:11 Labs: Abnormal Lab Results - Last 24 Hours (Table) 05/27/21 05/27/21 Range/Units 16:23 20:25 POC Glucose (mg/dL) 113 H 177 H (75-99) mg/dL
--- NOTE | 2021-05-28 14:47 | P.PN ---
Progress Note - Text Progress Note Date: 05/28/21 Chief Complaint: Short of breath This is a very pleasant 85-year-old patient of Dr. Hoa Lorenz. Chronic stable medical conditions include diabetes, hypertension, hyperlipidemia. Patient's previously had a CAD with PCI to RCA in 2001. Also paroxysmal atrial fibrillation on eliquis. He does follow with interpreter and translator is Dr. Millie Kate. Patient now presents to 3 days of shortness of breath discomfort in the upper chest upper back. Unable to lay comfortable. Some palpitation. Tired rundown. Discomfort even presented dressed just the description he was just feeling off. Finally decided to come in. No exacerbating or relieving factors. Some orthopnea. No lower extremity swelling. In the ER found to be in atrial fibrillation rapid ventricular rate. Was placed and IV Cardizem. Earlier seen by cardiology. Given IV bolus of amiodarone. Patient reverted to sinus rhythm. Admitted with acute non-Q wave IL, possible CHF exacerbation, atrial fibrillation rapid ventricular rate. IV heparin. IV amiodarone. IV Cardizem. Reverted to sinus rhythm. May 20: Overflow in the ER. No chest pain or shortness of breath. Sitting up. Cardiology is contemplating cardiac catheterization. IV heparin drip. May 21: reclining bed. No chest pain no shortness of breath. Cardiac catheterization currently postponed for one day. On IV heparin drip. May 22: Laying in bed. After lunch had some chest pressure. Be followed by cardiology. On IV heparin drip. May 23: Patient is afraid to eat solid food. Gives him chest discomfort. Ordered pured diet for him. Tired. IV heparin. 3 Liters nasal cannula. May 24: Eating about 50%. IV heparin. No chest pain. Awake. May 25: Patient underwent cardiac catheterization. Significant disease found. Formal report still not up. Plan this was patient to return to the laborer heading for further intervention and stent. Currently no chest pain and breathing stable. May 26: Laying in bed. Comfortable. No chest pain or shortness of breath. Plan is to going for cardiac catheterization for revascularization tomorrow. May 27: Patient was seen this morning. Pending cardiac catheterization. No chest pain or shortness of breath. Nothing by mouth. May 28: Waiter/Waitress Formal decided not for any further intervention. Patient has not been out of bed. Ambulate the patient see how he does. Any recurrence of symptoms. IV heparin being discontinued. Eliquis will be resumed. Review of systems: Was done for constitutional, cardiovascular, GI, pulmonary. relevant finding as above Active Medications Acetaminophen (Acetaminophen Tab 325 Mg Tab) 650 mg PO Q6HR PRN PRN Reason: Mild Pain or Fever > 100.5 Last Admin: 05/21/21 03:08 Dose: 650 mg Documented by: Amiodarone HCl (Amiodarone 200 Mg Tab) 200 mg PO DAILY [facility] Apixaban (Apixaban 5 Mg Tab) 5 mg PO BID [facility]; Protocol Last Admin: 05/28/21 11:44 Dose: 5 mg Documented by: Aspirin (Aspirin 81 Mg) 81 mg PO DAILY [facility] Last Admin: 05/28/21 08:57 Dose: 81 mg Documented by: Atorvastatin Calcium (Atorvastatin 40 Mg Tab) 40 mg PO HS [facility] Last Admin: 05/27/21 20:27 Dose: 40 mg Documented by: Calcium Carbonate/Glycine (Calcium Carbonate 500 Mg Chewable) 1,000 mg PO Q4HR PRN PRN Reason: Dyspepsia Furosemide (Furosemide 40 Mg Tab) 40 mg PO BID@0900,1600 [facility] Last Admin: 05/28/21 08:56 Dose: 40 mg Documented by: Insulin Aspart (Insulin Aspart (Novolog) 100 Unit/Ml Vial) 0 unit SQ [facility]; Protocol Last Admin: 05/28/21 11:39 Dose: Not Given Documented by: Insulin Detemir (Insulin Detemir (Levemir) 100 Unit/Ml Syr) 8 unit SQ [facility] Last Admin: 05/27/21 20:32 Dose: 8 unit Documented by: Lactulose (Lactulose 20 Gm/30 Ml Cup) 20 gm PO DAILY PRN PRN Reason: Constipation Lorazepam (Lorazepam 0.5 Mg Tab) 0.5 mg PO Q6HR PRN PRN Reason: Anxiety Last Admin: 05/22/21 20:30 Dose: 0.5 mg Documented by: Melatonin (Melatonin 3 Mg Tablet) 3 mg PO HS PRN PRN Reason: Insomnia Metoprolol Tartrate (Metoprolol Tartrate 12.5 Mg Tab) 12.5 mg PO BID [facility] Last Admin: 05/28/21 08:57 Dose: 12.5 mg Documented by: Naloxone HCl (Naloxone 0.4 Mg/Ml 1 Ml Vial) 0.2 mg IV Q2M PRN PRN Reason: Opioid Reversal Nitroglycerin (Nitroglycerin Sl Tabs 0.4 Mg Tab) 0.4 mg SUBLINGUAL Q5M PRN PRN Reason: Chest Pain Ondansetron HCl (Ondansetron 4 Mg/2 Ml Vial) 4 mg IVP Q8HR PRN PRN Reason: Nausea And Vomiting Sodium Bicarbonate (Sodium Bicarbonate Tab 650 Mg Tab) 650 mg PO BID [facility] Last Admin: 05/28/21 08:57 Dose: 650 mg Documented by: Past medical history to include: CAD with PCI to RCA in 2001, hypertension, hyperlipidemia, diabetes type 2, paroxysmal atrial fibrillation on eliquis, mild to moderate aortic regurgitation, Social history: Lives alone. Was a daily from a. No alcohol or smoking. Family history: Reviewed, noncontributory to presentation Physical examination: VITAL SIGNS: 97.3, 53, 18, 112/66, 96% on 2 L GENERAL: Reclining bed, awake. Comfortable EYES: Pupils equal. Conjunctiva normal. HEENT: External appearance of nose and ears normal, oral cavity grossly normal. NECK: JVD not raised; masses not palpable. HEART: First and second heart sounds are normal; no edema. LUNGS: Respiratory rate normal; decreased breath sound. ABDOMEN: Soft, nontender, liver spleen not palpable, no masses palpable. PSYCH: Alert and oriented x3; mood and affect tired MUSCULOSKELETAL:No Clubbing/cyanosis;muscles-grossly intact. Evidence of OA NEUROLOGICAL: Cranial nerves grossly intact; no facial asymmetry, power and sensation grossly intact. INVESTIGATIONS, reviewed in the clinical context: May 28: Potassium 4.2 BUN 53 creatinine 1.94 May 27: Potassium 4 creatinine 1.99 May 21: Potassium 4.6 BUN 62 creatinine 2.40 Renal ultrasound: Multiple right-sided renal cortical cyst. No hydronephrosis. No obstruction. 2-D echocardiogram: EF 40-45%. Lateral/posterior hypokinesis. May 20: White count 12.5 hemoglobin 14.6 which is 193 potassium 4.3 BUN 51 and creatinine 2.29. Telemetry: Personally reviewed by me as: Sinus rhythm LDL 104 White count 10.18 globin 16.1 platelets 192 sodium 136 potassium 4.5 BUN 44 creatinine 2.15 Troponin I 14.9, 37.8 ProBNP 8430 Coronavirus [PCR]: Not detected EKG tracing personally reviewed by me-atrial fibrillation with rapid ventricular rate. ST segment depression Chest x-ray film personally reviewed by me shows: Venous prominence with fluid in the fissure Previous labs: May 2019: BUN 31 and creatinine 1.79 Assessment and plan: - Acute non-Q wave IL. Significant CAD per cardiac cath. Especially proximal and midportion stenosis about 70%, of LAD Eliquis- held. IV heparin. Lopressor. Aspirin. Lopressor. May 25,- cardiac cath by / Significant disease found. Cardiology has decided not to proceed. No further intervention and manage the patient medically. -Post infarct angina,: Stable IV heparin. Other medications to continue. Follow with cardiology -CAD with a prior history of PCI to RCA in 2001 Aspirin. Beta bárbara. -IV heparin monitoring Follow PTT -Acute congestive heart failure from systolic dysfunction EF 40-45%. From underlying ischemic cardiomyopathy and from uncontrolled A. fib.: Better By mouth Lasix 40 mg twice a day. Hold prior to cardiac cath -Paroxysmal atrial fibrillation with a rapid ventricular rate. Converted to sinus rhythm. IV Cardizem-discontinued. amiodarone. Lopressor 25 mg twice a day. IV heparin. -Diabetes mellitus type 2 on oral hypoglycemic, Hold oral hypoglycemic. Decrease Levemir 8 units. Accu-Cheks and sliding scale. -Essential hypertension Lopressor 25 mg twice a day -Hyperlipidemia Lipitor 40 mg daily at bedtime -Chronic kidney disease stage III suspect underlying diabetic nephropathy and hypertensive nephrosclerosis. Follow nephrology. -Acute kidney injury Likely ATN from hypotension/cardiorenal syndrome: Better Creatinine 2.4 now down to 1.99 Aspirin. Beta bárbara. IV heparin-discontinue. amiodarone. . Levemir. Lipitor. Ambulate patient. If does well. Home tomorrow. Eliquis to be resumed.
[2021-05-28 16:44] LABS: Glucose,Whole Blood 171 mg/dL (75-99)
[2021-05-28] MEDS: ATORVASTATIN 40 MG TAB PO SCH (20:11)
[2021-05-28] MEDS: INSULIN DETEMIR (LEVEMIR) 100 UNIT/ML SYR SQ SCH (20:12)
[2021-05-28 20:27] LABS: Glucose,Whole Blood 107 mg/dL (75-99)
[2021-05-29 06:16] LABS: Glucose,Whole Blood 84 mg/dL (75-99)
[2021-05-29] MEDS: INSULIN ASPART (NovoLOG) 100 UNIT/ML VIAL SQ SCH ×2 (06:19→12:38)
[2021-05-29 07:17] LABS: Calcium 9.1 mg/dL (8.4-10.2); Potassium 3.8 mmol/L (3.5-5.1)
[2021-05-29] MEDS: METOPROLOL TARTRATE 12.5 MG TAB PO SCH (08:15)
[2021-05-29] MEDS: ASPIRIN 81 MG PO SCH (08:15)
[2021-05-29] MEDS: SODIUM BICARBONATE TAB 650 MG TAB PO SCH (08:15)
[2021-05-29] MEDS: FUROSEMIDE 40 MG TAB PO SCH (08:16)
[2021-05-29] MEDS: APIXABAN 5 MG TAB PO SCH (08:16)
[2021-05-29 08:18] VITALS: PULSE 59; TEMP 98
[2021-05-29] MEDS ORDERED: AMIODARONE 200 MG TAB PO SCH (09:00)
--- NOTE | 2021-05-29 09:16 | P.PN ---
Subjective Patient is seen in follow-up for acute kidney injury on chronic kidney disease. Renal function fairly stable. Denies chest pain or shortness of breath. No vomiting or diarrhea. Blood pressure stable. On room air. Vital signs are stable. General: Appears comfortable. HEENT: Head exam is unremarkable. LUNGS: Breath sounds decreased. HEART: Bradycardic. ABDOMEN: Soft, no distention. EXTREMITITES: No edema. Objective - Vital Signs Vital signs: Vital Signs Temp 98 F 05/29/21 08:00 Pulse 59 L 05/29/21 08:00 Resp 18 05/29/21 08:00 BP 111/63 05/29/21 08:00 Pulse Ox 96 05/29/21 04:00 Intake & Output 05/28/21 05/29/21 05/29/21 18:59 06:59 18:59 Intake Total 720 Output Total 600 1200 Balance 120 -1200 Weight 78.471 kg Intake: Oral 720 Output: Urine 600 1200 Other: Voiding Method Urinal Urinal - Labs CBC & Chem 7: 05/26/21 07:31 05/29/21 06:46 Labs: Abnormal Lab Results - Last 24 Hours (Table) 05/28/21 05/28/21 05/28/21 Range/Units 10:11 11:33 16:43 Sodium 132 L (137-145) mmol/L BUN 53 H (9-20) mg/dL Creatinine 1.94 H (0.66-1.25) mg/dL Glucose 131 H (74-99) mg/dL POC Glucose (mg/dL) 119 H 171 H (75-99) mg/dL 05/28/21 05/29/21 Range/Units 20:09 06:46 Sodium 133 L (137-145) mmol/L BUN 55 H (9-20) mg/dL Creatinine 2.12 H (0.66-1.25) mg/dL Glucose (74-99) mg/dL POC Glucose (mg/dL) 107 H (75-99) mg/dL Assessment and Plan Plan: Assessment: 1. Acute kidney injury secondary to ATN secondary to cardiorenal syndrome. Renal function fairly stable. Creatinine 2.12 today. No hydronephrosis noted on kidney ultrasound. 2. Coronary artery disease status post cardiac catheterization on 05/25/2021 which showed triple-vessel disease. Medical management for now. 3. Acute on chronic systolic CHF with ejection fraction of 40-45%. 4. Chronic kidney disease stage IV secondary to nephrosclerosis with baseline creatinine in the range of 1.7-1.8. 5. Metabolic acidosis secondary to chronic kidney disease maintained on oral bicarb. Improved. 6. Diabetes mellitus. 7. A. fib. On oral amiodarone and metoprolol. Cardiology following. Plan: Maintain oral Lasix. Avoid nephrotoxins. Follow up outpatient in 7-10 days postdischarge.
[2021-05-29 10:44] LABS: Glucose,Whole Blood 134 mg/dL (75-99)
[2021-05-29 11:47] LABS: Glucose,Whole Blood 159 mg/dL (75-99)
--- NOTE | 2021-05-29 13:30 | P.PN ---
Subjective This is a pleasant 85-year-old male past medical history significant for coronary artery disease status post PCI to the RCA in 2001, hypertension, dy slipidemia, type 2 diabetes, paroxysmal atrial fibrillation on Eliquis, mild to moderate aortic regurgitation. He follows in the office with Dr. Garcia. We have been asked to see in consultation for atrial fibrillation with RVR and elevated troponin. Patient presented to the emergency department on 05/19/21 with complaints of shortness of breath, dyspnea on exertion and pain in his bilateral upper back, bilateral neck and bilateral shoulders for 3 days. He states his pain is aggravated by activity. He states that even doing his normal walking from his house to his garage he has significant shortness of breath. Patient was started on IV Cardizem and given 1L IV saline bolus EKG revealed atrial fibrillation with rapid ventricular response HR, 155, ST segment depression in leads V2 through V4. Troponin 40.9-->37.8-->47.0 Cardizem drip was stopped. Patient started on IV amiodarone 300mg bolus and IV amiodarone drip, IV heparin drip. Most recent echocardiogram 07/2020 revealed EF of 55%, mild to moderate aortic regurgitation. On 05/25/21, patient underwent cardiac catheterization with Dr. Garcia revealed patent stent in the RCA, 6070% stenosis in the mid RCA, 70% stenosis involving the PDA, [id number] collaterals the distal circumflex coronary artery, circumflex appears occluded in its proximal portion LAD, 7080% stenosis in the midportion 70% stenosis in the proximal LAD 05/29/21 Patient seen and examined on 3S cardiac stepdown unit. He denies any shortness of breath or chest pain. He ambulating in the room without difficulty. Stent placement was not completed on 05/27/21 and it was recommended per Dr. Xiong and Dr. Garcia to manage with medical therapy. He is tolerating medical therapy well. He has no complaints this morning. Labs reviewed, sodium 133, potassium 2.8, BUN 55, serum creatinine 2.1 He is maintained on PO amiodarone 200mg daily, Eliquis 2.5mg BID, atorvastatin, aspirin, metoprolol tartrate 12.5 mg twice a day. Telemetry- Patient in sinus mechanism, is bradycardic HR 50s Echocardiogram revealed the 4045%, lateral and posterior hypokinesis, mild mitral regurgitation, mild tricuspid regurgitation. PHYSICAL EXAMINATION Vitals reviewed CONSTITUTIONAL: No apparent distress. HEENT: Neck Supple. No JVD. CHEST EXAMINATION: Lungs are mild bilateral crackles to auscultation. No chest wall tenderness is noted on palpation or with deep breathing. HEART EXAMINATION: Regular rate and rhythm. S1, S2 heard. Systolic ejection murmur noted. ABDOMEN: Soft, nontender. Positive bowel sounds. EXTREMITIES: 2+ peripheral pulses, no lower extremity edema and no calf tenderness. NEUROLOGIC EXAMINATION: Patient is awake, alert and oriented x3. ASSESSMENT NSTEMI Paroxysmal atrial fibrillation with rapid ventricular response, on Eliquis outpatient Ischemic cardiomyopathy with EF 40-45% Coronary artery disease status post PCI to the RCA in 2001 Acute on chronic kidney disease History of hypertension Hypotension Dyslipidemia Type 2 diabetes Mild to moderate aortic regurgitation PLAN -Patient's cardiac catheterization reviewed by Dr. Xiong and Dr. Garcia, No plans for stent placement at this time. We will continue medical management -Continue metoprolol tartrate 12.5mg BID, amiodarone 200mg daily, Lasix PO 40mg BID -Will stop IV heparin, and restart Eliquis 2.5mg BID due to age and renal function -Aspirin, statin -From a cardiology perspective, patient is stable for discharge home. Follow up with Dr. Garcia 06/03/21 at 3:30PM at [facility] Nurse Practitioner note has been reviewed, I agree with a documented findings and plan of care. Patient was seen and examined. Objective - Vital Signs Vital signs: Vital Signs Temp 98 F 05/29/21 08:00 Pulse 59 L 05/29/21 08:00 Resp 18 05/29/21 08:00 BP 111/63 05/29/21 08:00 Pulse Ox 96 05/29/21 04:00 Intake & Output 05/28/21 05/29/21 05/29/21 18:59 06:59 18:59 Intake Total 720 Output Total 600 1200 Balance 120 -1200 Weight 78.471 kg Intake: Oral 720 Output: Urine 600 1200 Other: Voiding Method Urinal Urinal - Labs CBC & Chem 7: 05/26/21 07:31 05/29/21 06:46 Labs: Abnormal Lab Results - Last 24 Hours (Table) 01/20/22 01/20/22 01/21/22 Range/Units 16:43 20:09 06:46 Sodium 133 L (137-145) mmol/L BUN 55 H (9-20) mg/dL Creatinine 2.12 H (0.66-1.25) mg/dL POC Glucose (mg/dL) 171 H 107 H (75-99) mg/dL 05/29/21 05/29/21 Range/Units 10:42 11:46 Sodium (137-145) mmol/L BUN (9-20) mg/dL Creatinine (0.66-1.25) mg/dL POC Glucose (mg/dL) 134 H 159 H (75-99) mg/dL
[2021-05-29 13:45] VITALS: RESP 16
[2021-05-29 13:46] VITALS: BP 112/64
--- NOTE | 2021-05-29 19:19 | P.DS ---
Providers Date of admission: 05/19/21 15:23 Expected date of discharge: 05/29/21 Attending physician: Cory Sanabria Consults: 05/19/21 15:23 Consult Physician Urgent Consulting Provider: Jennie Sandra Consult Reason/Comments: Non-STEMI, new onset A. fib Do you want consulting provider notified?: Already Contacted 05/20/21 08:11 Consult Physician Urgent Consulting Provider: Nicolasa Beckwith Consult Reason/Comments: CKD, DE- needs cardiac catheterization, may need HD Do you want consulting provider notified?: Yes 05/20/21 16:39 Consult Physician Routine Consulting Provider: Nicolasa Beckwith Consult Reason/Comments: CK D Do you want consulting provider notified?: Yes Primary care physician: Hoa Lorenz [facility] Course: Chief Complaint: Short of breath This is a very pleasant 85-year-old patient of Dr. Hoa Lorenz. Chronic stable medical conditions include diabetes, hypertension, hyperlipidemia. Patient's previously had a CAD with PCI to RCA in 2001. Also paroxysmal atrial fibrillation on eliquis. He does follow with leaf conditioner helper is Dr. Millie Kate. Patient now presents to 3 days of shortness of breath discomfort in the upper chest upper back. Unable to lay comfortable. Some palpitation. Tired rundown. Discomfort even presented dressed just the description he was just feeling off. Finally decided to come in. No exacerbating or relieving factors. Some orthopnea. No lower extremity swelling. In the ER found to be in atrial fibrillation rapid ventricular rate. Was placed and IV Cardizem. Earlier seen by cardiology. Given IV bolus of amiodarone. Patient reverted to sinus rhythm. Admitted with acute non-Q wave DE, possible CHF exacerbation, atrial fibrillation rapid ventricular rate. IV heparin. IV amiodarone. IV Cardizem. Reverted to sinus rhythm. May 25: Patient underwent cardiac catheterization. Significant disease found. Initial plan was to go back and open up the obstructive lesions. Given patient's renal function it was decided to manage the patient medically. May 29: Patient did walk in the hallway. No chest pain or shortness of breath. Cleared by cardiology and nephrology. We'll follow up as outpatient. Discussed with the patient. Discussion and discharge planning more than 35 minutes Consultation: Cardiology associates Nephrology Past medical history to include: CAD with PCI to RCA in 2001, hypertension, hyperlipidemia, diabetes type 2, paroxysmal atrial fibrillation on eliquis, mild to moderate aortic regurgitation, Social history: Lives alone. Was a daily from a. No alcohol or smoking. Family history: Reviewed, noncontributory to presentation Physical examination: VITAL SIGNS: 98, 59, 18, 111/63, 96% room air GENERAL: Reclining bed, awake. Comfortable EYES: Pupils equal. Conjunctiva normal. HEENT: External appearance of nose and ears normal, oral cavity grossly normal. NECK: JVD not raised; masses not palpable. HEART: First and second heart sounds are normal; no edema. LUNGS: Respiratory rate normal; decreased breath sound. ABDOMEN: Soft, nontender, liver spleen not palpable, no masses palpable. PSYCH: Alert and oriented x3; mood and affect tired MUSCULOSKELETAL:No Clubbing/cyanosis;muscles-grossly intact. Evidence of OA NEUROLOGICAL: Cranial nerves grossly intact; no facial asymmetry, power and sensation grossly intact. INVESTIGATIONS, reviewed in the clinical context: May 29: Sodium 133 potassium 3.8. 55 creatinine 2.12 Renal ultrasound: Multiple right-sided renal cortical cyst. No hydronephrosis. No obstruction. 2-D echocardiogram: EF 40-45%. Lateral/posterior hypokinesis. May 20: White count 12.5 hemoglobin 14.6 which is 193 potassium 4.3 BUN 51 and creatinine 2.29. Telemetry: Personally reviewed by me as: Sinus rhythm LDL 104 White count 10.18 globin 16.1 platelets 192 sodium 136 potassium 4.5 BUN 44 creatinine 2.15 Troponin I 14.9, 37.8 ProBNP 8430 Coronavirus [PCR]: Not detected EKG tracing personally reviewed by me-atrial fibrillation with rapid ventricular rate. ST segment depression Chest x-ray film personally reviewed by me shows: Venous prominence with fluid in the fissure Previous labs: May 2019: BUN 31 and creatinine 1.79 Assessment and plan: - Acute non-Q wave DE. Significant CAD per cardiac cath. Especially proximal and midportion stenosis about 70%, of LAD Eliquis- held. IV heparin. Lopressor. Aspirin. Lopressor. May 25,- cardiac cath by / Significant disease found. No further intervention and manage the patient medically. -Post infarct angina,: Improved IV heparin. Other medications to continue. Follow with cardiology -CAD with a prior history of PCI to RCA in 2001 Aspirin. Beta bárbara. -IV heparin monitoring: Discontinued Follow PTT -Acute congestive heart failure from systolic dysfunction EF 40-45%. From underlying ischemic cardiomyopathy and from uncontrolled A. fib.: Better Lasix 40 mg twice a day. -Paroxysmal atrial fibrillation with a rapid ventricular rate. Converted to sinus rhythm. IV Cardizem-discontinued. amiodarone. Lopressor 12.5 mg twice a day. Eliquis -Diabetes mellitus type 2 on oral hypoglycemic, Glucotrol, 5 mg -Essential hypertension Lopressor 12.5 mg twice a day -Hyperlipidemia Lipitor 40 mg daily at bedtime -Chronic kidney disease stage III suspect underlying diabetic nephropathy and hypertensive nephrosclerosis. Follow nephrology. -Acute kidney injury Likely ATN from hypotension/cardiorenal syndrome: Better Creatinine 2.4 now down to 1.99 Disposition: Home Plan - Discharge Summary Discharge Rx Participant: No New Discharge Prescriptions: New Aspirin 81 mg PO DAILY #0 tab Furosemide [Lasix] 40 mg PO BID@0900,1600 30 Days #60 tab Atorvastatin [Lipitor] 40 mg PO HS 30 Days #30 tab Metoprolol Tartrate [Lopressor] 12.5 mg PO BID 30 Days #60 tab Nitroglycerin Sl Tabs [Nitrostat] 0.4 mg SUBLINGUAL Q5M PRN #25 tab PRN Reason: Chest Pain Amiodarone [Cordarone] 200 mg PO DAILY 30 Days #30 tab Apixaban [Eliquis] 2.5 mg PO BID 30 Days #60 tab Sodium Bicarbonate Tab 650 mg PO BID #30 tab Continue glipiZIDE [Glucotrol] 5 mg PO DAILY Acetaminophen Tab [Tylenol] 325 - 650 mg PO Q6H PRN PRN Reason: Pain Discontinued Simvastatin [Zocor] 20 mg PO HS Metoprolol Tartrate [Lopressor] 50 mg PO BID amLODIPine [Norvasc] 5 mg PO DAILY Apixaban [Eliquis] 5 mg PO BID Discharge Medication List glipiZIDE [Glucotrol] 5 mg PO DAILY 06/04/19 [History] Acetaminophen Tab [Tylenol] 325 - 650 mg PO Q6H PRN 10/08/19 [History] Amiodarone [Cordarone] 200 mg PO DAILY 30 Days #30 tab 05/28/21 [Rx] Aspirin 81 mg PO DAILY #0 tab 05/28/21 [Rx] Atorvastatin [Lipitor] 40 mg PO HS 30 Days #30 tab 05/28/21 [Rx] Furosemide [Lasix] 40 mg PO BID@0900,1600 30 Days #60 tab 05/28/21 [Rx] Metoprolol Tartrate [Lopressor] 12.5 mg PO BID 30 Days #60 tab 05/28/21 [Rx] Nitroglycerin Sl Tabs [Nitrostat] 0.4 mg SUBLINGUAL Q5M PRN #25 tab 05/28/21 [Rx] Apixaban [Eliquis] 2.5 mg PO BID 30 Days #60 tab 05/29/21 [Rx] Sodium Bicarbonate Tab 650 mg PO BID #30 tab 05/29/21 [Rx] Follow up Appointment(s)/Referral(s): Hoa Lorenz MD [Primary Care Provider] - 06/02/21 11:00 am Fie Meneses DO [STAFF PHYSICIAN] - 06/05/21 10:30 am (This is for the [facility] For your knowledge, Dr. Beckwith visits once a month in [place]) Ramon Garcia MD [STAFF PHYSICIAN] - 06/03/21 3:30 pm (At [place] Office, at [facility]) Patient Instructions/Handouts: Chronic Kidney Disease Diet (DC) Activity/Diet/Wound Care/Special Instructions: Please make appointments for same day BMP - 5 days Discharge Disposition: HOME SELF-CARE
[2021-05-29] MEDS ORDERED: APIXABAN 2.5 MG TABLET PO SCH (21:00)
== END 2021-05-29 16:55 | disposition home or self-care (01) | DRG 280 ==
LOC: EC 12:25 → 3SCARD 15:23
PROVIDERS: ADMIT Hospitalist; ATTEND Hospitalist
PROC: B2111ZZ Fluoroscopy of Multiple Coronary Arteries using Low Osmolar Contrast (ICD-10-PCS; 2021-05-25)
PROC: 4A023N7 Measurement of Cardiac Sampling and Pressure, Left Heart, Percutaneous Approach (ICD-10-PCS; principal; 2021-05-25 12:00)
DX: I21.4 Non-ST elevation (NSTEMI) myocardial infarction (principal); I50.23 Acute on chronic systolic (congestive) heart failure; N17.0 Acute kidney failure with tubular necrosis; E87.2 Acidosis; I13.0 Hypertensive heart and chronic kidney disease with heart failure and stage 1 through stage 4 chronic kidney disease, or unspecified chronic kidney disease; I23.7 Postinfarction angina; I48.92 Unspecified atrial flutter; N18.4 Chronic kidney disease, stage 4 (severe); E11.22 Type 2 diabetes mellitus with diabetic chronic kidney disease; E11.649 Type 2 diabetes mellitus with hypoglycemia without coma; E11.65 Type 2 diabetes mellitus with hyperglycemia; E78.5 Hyperlipidemia, unspecified; I25.10 Atherosclerotic heart disease of native coronary artery without angina pectoris; I25.5 Ischemic cardiomyopathy; I35.1 Nonrheumatic aortic (valve) insufficiency; I48.0 Paroxysmal atrial fibrillation; J44.9 Chronic obstructive pulmonary disease, unspecified; Z20.822 Contact with and (suspected) exposure to COVID-19; Z79.899 Other long term (current) drug therapy; Z98.61 Coronary angioplasty status; Z79.84 Long term (current) use of oral hypoglycemic drugs; Z79.4 Long term (current) use of insulin; Z79.01 Long term (current) use of anticoagulants; N28.1 Cyst of kidney, acquired; I95.9 Hypotension, unspecified; Z95.5 Presence of coronary angioplasty implant and graft; Z98.890 Other specified postprocedural states
CPT/HCPCS: 36415; 71045; 71046; 76770; 80048; 80053; 80061; 81001; 82533; 83605; 83735; 83880; 84484; 85025; 85379; 85610; 85730; 87086; 87635; 93005; 93306; 93458; 94760; 96365; 96366; 96367; 99291

== ENCOUNTER 2021-09-24 08:49 | Day surgery (SDC) | payer MEDICARE, BC ==
[2021-09-23 11:42] VITALS: BMI 25.8
[~2021-09-24 08:49] MED LIST changes: +FAMOTIDINE 20 MG/2 ML VIAL IV PRN; +ONDANSETRON 4 MG/2 ML VIAL IVP ONE; +fentaNYL (PF) 50 MCG/ML 2 ML AMP IV PRN; +metroNIDAZOLE-NS PMX 500 MG in SALINE 1 100ML.BAG IVPB PRN
[2021-09-24 09:33] LABS: Glucose,Whole Blood 116 mg/dL (75-99)
[2021-09-24] MEDS ORDERED: KETOROLAC 15 MG/ML 1 ML VIAL ONE (11:14)
[2021-09-24] MEDS ORDERED: PROPOFOL 10 MG/ML 20 ML VIAL IV ONE (11:14)
[2021-09-24] MEDS ORDERED: fentaNYL (PF) 50 MCG/ML 2 ML AMP ONE (11:14)
[2021-09-24] MEDS ORDERED: SUCCINYLCHOLINE CHLORIDE 100 MG/5 ML SYR IV ONE (11:14)
[2021-09-24] MEDS ORDERED: LIDOCAINE 2% INJ 20 MG/ML (2 ML VIAL) ONE (11:14)
[2021-09-24] MEDS ORDERED: DEXAMETHASONE SOD PHOSPHATE 10 MG/ML 1 ML VIAL ONE (11:14)
[2021-09-24] MEDS ORDERED: LIDOCAINE 4% LTA KIT (4 ML) TOPICAL ONE (11:14)
[2021-09-24] MEDS ORDERED: MIDAZOLAM 2 MG/2 ML VIAL ONE (11:14)
[2021-09-24] MEDS ORDERED: ePHEDrine 50 MG/ML 1 ML VIAL ONE (11:14)
[2021-09-24] MEDS ORDERED: LIDOCAINE 1%-EPI 1:100,000 20 ML VIAL SQ ONE ×4 (11:45→11:46)
[2021-09-24] MEDS ORDERED: BUPIVACAINE (PF) 0.25% 30 ML VIAL SQ ONE ×4 (11:45→11:46)
[2021-09-24] MEDS ORDERED: LACTATED RINGERS 1,000 ML IV ONE ×2 (13:04)
[2021-09-24 14:05] VITALS: TEMP 97
--- NOTE | 2021-09-24 14:36 | P.OP ---
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 with frozen section and reconstruction with a V2 Y advancement flap with a secondary defect measuring 9.2 x 8 cm Excision of a 4.3 x 2.5 cm left preauricular squamous cell carcinoma with frozen section and reconstruction utilizing a bilateral advancement flap closure with a secondary defect measuring 8.6 x 5 cm Excision of a 4.1 x 2 cm scalp lesion anteriorly with complex closure Anesthesia: GETA Surgeon: Clay Garcia Estimated Blood Loss (ml): 4.1 Pathology: other (Lesions were sent for frozen section) Condition: stable Disposition: PACU Indications for Procedure: Patient had 2 lesions that were biopsied. He had a lesion of his nasal tip and left preauricular region both came back as squamous cell carcinoma and a wider resection was recommended. He also this morning his revealed a 4.1 x 2 cm scalp lesion anteriorly he's requesting surgical removal. All risks, benefits and alternative therapy were discussed regarding removal of these 3 lesions. Consent was obtained and all questions were answered. Operative Findings: All margins are negative for tumor Description of Procedure: Patient was taken to the operative room and placed in the supine position. A general inhalation anesthetic was administered to the patient by mask and subsequently intubated with a cuffed endotracheal tube by the department of anesthesia with a functioning IV line in place. The patient was monitored throughout the entire case by the department of anesthesia. Face was sterilely prepped and draped in usual fashion and these 3 lesions were identified and marked appropriately and then anesthetized with lidocaine 1% with epinephrine 1 100,000 and bupivacaine. 10 minutes were allowed wait for full vasoconstrictive effects to take place. With use of a 15 blade and nasal tip lesion was excised which measured 4.6 x 4 cm and sent for frozen section. The lesion was removed with a 15 blade delicate plastic scissors and a Brown-Tarun forceps. We utilized double hooks for undermining the nasalis muscle to the extent of the nose laterally. We marked the specimen with sutures for orientation the blue was right sided and the black was inferior. The margins came back negative for tumor and this left a very large defect of the nasal tip. We then utilized a glabellar V- Y advancement flap elevating the entire skin and nasalis muscle of the nose and moving the skin downward over this large defect. The secondary defect measured 9.2 x 8 cm. The nasalis muscle was closed with 3-0 Monocryl the skin was closed with 4-0 Monocryl and the final layer was placed a 5-0 Prolene in a running nonlocking fashion. Excellent approximation was obtained and Mastisol and Steri-Strips were applied. We then paid attention to the left preauricular lesion which measured 4.3 x 2.5 cm. This lesion was marked and was excised with a 15 blade delicate plastic scissors and a Brown-Adson forceps and marked this for orientation. We utilized a black suture inferiorly and a blue suture medially. The lesion was sent for frozen section and all margins were negative for tumor. We then developed bilateral advancement flaps with extensive undermining and removal of burrows triangles bilaterally. We then rotated the skin into the defect with the secondary defect measuring 8.6 x 5 cm. After the defect was closed we utilized 3 and 4-0 Monocryl subcutaneously and at the deep dermal level the skin was closed with a 5-0 Prolene in a running nonlocking fashion. Excellent approximation was obtained and Steri-Strips were applied. The anterior scalp demonstrated a lesion which was requested to be removed by the patient which measured 4.1 x 2 cm. This lesion was removed with a 15 blade delicate plastic scissors and a Brown-Adson forceps. We did extensive undermining under the frontalis muscle and we removed redundant tissue for better closure. We also removed on years. After the extensive undermining and skin tissue preparation, we closed the frontalis muscle with 4-0 Monocryl we closed the deep dermal layer with 4-0 Monocryl. We closed the mid dermal layer with 4-0 Monocryl and we closed the skin with a 5-0 Prolene in a running nonlocking fashion. Excellent approximation was obtained and the patient was taken to postanesthesia recovery in excellent condition. Follow-up will be in the office in 1 week for recheck Steri-Strips and Mastisol was applied to the scalp lesion. Patient tolerated this well and follow-up will be in the office in 1 week. Patient is to call me if any problems should arise. Was discharged on mobic, Tylenol, Augmentin.
[2021-09-24 15:02] VITALS: BP 144/71; PULSE 64; RESP 18
== END 2021-09-24 15:24 | disposition home or self-care (01) ==
LOC: OR 08:49
PROVIDERS: ATTEND Otolaryngology
DX: C44.321 Squamous cell carcinoma of skin of nose (principal); C44.229 Squamous cell carcinoma of skin of left ear and external auricular canal; L57.0 Actinic keratosis
CPT/HCPCS: 14301; 14302; 88305; 88331; 88332; J2250; J1100; J0690; J2405; J3010; J1885; J0330; J2704; J2001